=== PATIENT | male | born 1950 | race Caucasian/White ===

== ENCOUNTER → 2016-11-27 | Outpatient (CLI) | payer BC, OTHER ==
[~2016-11-27] MED LIST: ASCO-262 PO; CHOL500049 PO; HYDR-3812 PO; LEVO25TA2 PO; MULT1TAB69 PO; ONDA4TAB8 SL; TESTOSTERONE TOP; VIT1CAPS9 PO
[2016-11-27 07:22] LABS: BLOOD UREA NITROGEN 16 MG/DL (7-18); BUN/CREATININE RATIO 22; CREATININE SERUM 0.74 MG/DL (0.60-1.30); GFR ESTIMATED > 60
[2016-11-27] MEDS: IOHEXOL 350 MG/ML 100 ML (OMNIPAQUE 350) VIAL IV ONE (08:00)
[2016-11-27] MEDS: BARIUM SUSPENSION 2.1% (VANILLA SILQ) 450 ML PO ONE (08:01)
[2016-11-27] MEDS: NS 100 ML (IVPB) BAG IV ONE (08:01)
[2016-11-27] MEDS: CATHETER FLUSH 10 ML SYR IV PRN (08:01)
--- NOTE | 2016-11-27 11:43 | Diagnostic Imaging Report ---
PROCEDURE: CT abdomen with contrast only. TECHNIQUE: Multiple contiguous axial images were obtained through the abdomen after the administration of intravenous contrast. INDICATION: Increased hernia. COMPARISON: No prior similar studies are available for comparison. FINDINGS: There is 1 cm subpleural lateral nodule in the left lung base. This is stable compared to CT chest of 05/22/2014 compatible with benign etiology. The liver, the spleen, the pancreas, and the adrenal glands appear unremarkable. Internal heterogeneity within the gallbladder may relate to sludge or noncalcified stones. There is question of mild gallbladder wall thickening. This can be better evaluated with ultrasound if needed. The kidneys demonstrate symmetric enhancement and contrast excretion. No hydronephrosis. There is a 4 mm nonobstructive stone in the lower pole of the left kidney. The abdominal aorta is normal in caliber. No paraaortic significantly enlarged lymph node is seen. There is a tiny umbilical fat-containing hernia. No fluid collection or free fluid in the abdomen is seen. The osseous structures demonstrate vertebral body hemangiomas up to 1.3 cm in L4 vertebral body. No destructive mass. IMPRESSION: 1. There is a tiny fat-containing umbilical hernia. 2. Suggestion of noncalcified gallbladder stones and minimal gallbladder wall thickening. Correlate clinically and with gallbladder ultrasound if needed. Dictated by: Dictated on workstation # [id number]
== END | disposition home or self-care (01) ==
LOC: RAD 06:49
PROVIDERS: ATTEND Surgery
DX: K43.2 Incisional hernia without obstruction or gangrene (principal); K42.9 Umbilical hernia without obstruction or gangrene
CPT/HCPCS: 36415; 74160; 82565; 84520

== ENCOUNTER 2016-11-30 09:41 | Outpatient (CLI) | payer BC ==
[~2016-11-30] VITALS: Ht 185.4 cm; Wt 107.6 kg
[~2016-11-30 09:41] MED LIST changes: -ASCO-262 PO; -CHOL500049 PO; -MULT1TAB69 PO; -VIT1CAPS9 PO
[2016-11-30] MEDS ORDERED: ASCO-262 PO (09:56)
[2016-11-30] MEDS ORDERED: VIT1CAPS9 PO (09:56)
[2016-11-30] MEDS ORDERED: MULT1TAB69 PO (09:56)
[2016-11-30] MEDS ORDERED: CHOL500049 PO (09:56)
[2016-11-30 09:57] VITALS: BP 109/73
[2016-11-30 10:28] LABS: BASOPHILS # (AUTO) 0.1 10^3/uL (0.0-0.1); BASOPHILS % (AUTO) 1 % (0-10); EOSINOPHILS # (AUTO) 0.2 10^3/uL (0.0-0.3); EOSINOPHILS % (AUTO) 2 % (0-10); LYMPHOCYTES # (AUTO) 1.6 X 10^3 (1.0-4.0); LYMPHOCYTES % (AUTO) 22 % (12-44); MEAN CORPUSCULAR HEMOGLOBIN 31 PG (25-34); MEAN CORPUSCULAR HGB CONC 33 G/DL (32-36); MEAN CORPUSCULAR VOLUME 92 FL (80-99); MEAN PLATELET VOLUME 10.7 FL (7.4-10.4); MONOCYTES # (AUTO) 0.7 X 10^3 (0.0-1.0); MONOCYTES % (AUTO) 9 % (0-12); NEUTROPHILS % (AUTO) 67 % (42-75); PLATELET COUNT 275 10^3/uL (130-400); RED BLOOD COUNT 4.92 10^6/uL (4.35-5.85); RED CELL DISTRIBUTION WIDTH 12.4 % (10.0-14.5); WHITE BLOOD COUNT 7.5 10^3/uL (4.3-11.0)
[2016-11-30 10:44] LABS: ALANINE AMINOTRANSFERASE 33 U/L (0-55); ANION GAP 7 MMOL/L (5-14); ASPARTATE AMINO TRANSFERASE 18 U/L (5-34); BILIRUBIN,TOTAL 0.8 MG/DL (0.1-1.0); BLOOD UREA NITROGEN 11 MG/DL (7-18); BUN/CREATININE RATIO 13; CALCIUM 9.2 MG/DL (8.5-10.1); CARBON DIOXIDE 26 MMOL/L (21-32); CHLORIDE 106 MMOL/L (98-107); CREATININE SERUM 0.83 MG/DL (0.60-1.30); GFR ESTIMATED > 60; GLUCOSE 101 MG/DL (70-105); POTASSIUM 4.2 MMOL/L (3.6-5.0); SODIUM 139 MMOL/L (135-145); TOTAL PROTEIN 6.3 G/DL (6.4-8.2)
== END 2016-11-30 10:07 | disposition home or self-care (01) ==
LOC: PREOP 09:41
PROVIDERS: ATTEND Surgery
DX: Z01.812 Encounter for preprocedural laboratory examination (principal); Z11.2 Encounter for screening for other bacterial diseases; K80.20 Calculus of gallbladder without cholecystitis without obstruction; K43.0 Incisional hernia with obstruction, without gangrene
CPT/HCPCS: 36415; 80053; 85025; 87081

== ENCOUNTER 2016-12-03 10:13 | Day surgery (SDC) | payer MEDICARE, BC ==
[~2016-12-03] VITALS: Ht 185.4 cm; Wt 107.6 kg
[~2016-12-03 10:13] MED LIST changes: +ASCO-262 PO; +CHOL500049 PO; +MULT1TAB69 PO; +VIT1CAPS9 PO; +ceFAZolin 2 GM/50 ML NS 50 ML ONE; +metroNIDAZOLE 500MG/100ML IVPB 100 ML ONE
[2016-12-03] MEDS: LACTATED RINGERS 1,000 ML IV PRN ×2 (10:30→13:04)
[2016-12-03] MEDS ORDERED: ONDANSETRON 4 MG/2 ML (SDV) Z0FRAN ONE ×2 (10:31→11:12)
[2016-12-03] MEDS ORDERED: FAMOTIDINE 20MG/2ML IV (PEPCID) ONE (10:32)
[2016-12-03] MEDS ORDERED: ACETAMINOPHEN 500 MG TAB (TYLENOL) PO ONE (10:45)
[2016-12-03] MEDS ORDERED: oxyCODONE ER 10 MG (OxyCONTIN CR) TAB PO ONE (10:45)
[2016-12-03] MEDS ORDERED: PREGABALIN 75 MG (LYRICA) CAP PO ONE (10:45)
[2016-12-03] MEDS ORDERED: ONDANSETRON 4 MG/2 ML (SDV) Z0FRAN IV ONE (10:45)
[2016-12-03] MEDS ORDERED: CELECOXIB 100 MG (CeleBREX) CAP PO ONE (10:45)
[2016-12-03] MEDS ORDERED: FAMOTIDINE 20MG/2ML IV (PEPCID) IV ONE (10:45)
[2016-12-03] MEDS ORDERED: morphine INJ 10 MG/ML 1ML (SYR OR VIAL) IV PRN (10:45)
[2016-12-03 11:00] VITALS: BP 119/72
[2016-12-03] MEDS ORDERED: proPOfol 200 MG/20 ML (DIPRIVAN) VIAL IV ONE (11:12)
[2016-12-03] MEDS ORDERED: LIDOCAINE PF 2% 5 ML (XYLOCAINE) VIAL ONE (11:12)
[2016-12-03] MEDS ORDERED: LIDOCAINE JELLY 2% (XYLOCAINE) 5 ML TUBE ONE (11:12)
[2016-12-03] MEDS ORDERED: LACTATED RINGERS 1,000 ML IV ONE ×2 (11:12→13:20)
[2016-12-03] MEDS ORDERED: ROCURONIUM 50 MG/5 ML (ZEMURON) VIAL IV ONE ×2 (11:12→13:28)
[2016-12-03] MEDS ORDERED: MIDAZOLAM 2 MG/2 ML (VERSED) VIAL ONE (11:12)
[2016-12-03] MEDS ORDERED: BUP/EPI 0.25% 1:200,000 (MARCAINE) 10 ML VIAL IJ ONE (11:17)
[2016-12-03] MEDS ORDERED: LIDOCAINE PF 0.5% 50 ML (XYLOCAINE) VIAL ONE (11:17)
[2016-12-03] MEDS ORDERED: KETAMINE HCL 100 MG/ML 5 ML VIAL ONE (11:18)
--- NOTE | 2016-12-03 12:25 | Progress Note-Pre Operative ---
Pre-Operative Progress Note H&P Reviewed The H&P was reviewed, patient examined and no changes noted. Date Seen by Provider: Dec 03, 2016 Time Seen by Provider: 12:25 Date H&P Reviewed: Dec 03, 2016 Time H&P Reviewed: 12:25 Pre-Operative Diagnosis: gALLSTONES WITH RECURRENT VENTRAL HERNIA MITESH KENNEDY MD Dec 03, 2016 12:25 pm
[2016-12-03] MEDS ORDERED: metroNIDAZOLE 500MG/100ML IVPB 100 ML IV ONE (14:15)
[2016-12-03] MEDS ORDERED: SEVOFLURANE (ULTANE) 15 ML INHAL SOLN ONE (14:15)
[2016-12-03] MEDS ORDERED: ceFAZolin 2 GM/NS 50 ML IV ONE (14:15)
--- NOTE | 2016-12-03 14:16 | Progress Note-Post Operative ---
Post-Operative Progess Note Surgeon (s)/Briar Cutter (s) Surgeon MITESH KENNEDY MD Briar Cutter: not applicable Pre-Operative Diagnosis gALLSTONES WITH RECURRENT VENTRAL HERNIA Post-Operative Diagnosis same Procedure & Operative Findings Date of Procedure 12/03/16 Procedure Performed/Findings robotic-assisted cholecystectomy. Primary repair of recurrent ventral hernia without mesh Anesthesia Type Gen. Estimated Blood Loss Estimated blood loss (mL): minimal Specimens/Packing Specimens Removed gallbladder MITESH KENNEDY MD Dec 03, 2016 2:16 pm
[2016-12-03] MEDS ORDERED: HYDR-3812 PO (14:17)
--- NOTE | 2016-12-03 14:17 | Discharge Inst-Simple/Standard ---
Discharge Inst-Standard Discharge Medications New, Converted or Re-Newed RX: RX on Chart Patient Instructions/Follow Up Plan of Care/Instructions/FU: dressings off in 48 hours. Incentive spirometry. Follow-up in 3 weeks. Activity as Tolerated: No Goal: no lifting or pushing over 10 pounds Discharge Diet: No Restrictions MITESH KENNEDY MD Dec 03, 2016 2:17 pm
[2016-12-03] MEDS ORDERED: ONDANSETRON 4 MG/2 ML (SDV) Z0FRAN IVP PRN (14:30)
[2016-12-03] MEDS: morphine INJ 10 MG/ML 1ML (SYR OR VIAL) IVP PRN ×2 (14:52→15:00)
[2016-12-03 15:30] VITALS: BP 109/60
[2016-12-03] MEDS ORDERED: HYDROcodone/APAP 5 MG/325 MG (LORTAB) TAB ONE (15:35)
[2016-12-03 16:00] VITALS: BP 110/63
[2016-12-03] MEDS ORDERED: HYDROcodone/APAP 5 MG/325 MG (LORTAB) TAB PO ONE (16:00)
[2016-12-03 16:30] VITALS: BP 112/66
[2016-12-03 16:40] VITALS: BP 112/66
--- NOTE | 2016-12-03 19:08 | OPERATIVE REPORT ---
DATE OF SERVICE: 12/03/2016 PREOPERATIVE DIAGNOSES: 1. Gallstones. 2. Recurrent ventral hernia. POSTOPERATIVE DIAGNOSIS: 1. Gallstones. 2. Recurrent ventral hernia. OPERATIONS: 1. Robotic assisted cholecystectomy. 2. Repair of ventral hernia without mesh. SURGEON: Mitesh Kennedy MD ANESTHESIA: General anesthesia. BLOOD LOSS: Minimal. FLUIDS: 1200 mL of crystalloid. TYPE OF WOUND: Type 2 (clean - contaminated wound). INDICATION FOR PROCEDURE: This gentleman presented with symptomatic gallstones. During the preoperative evaluation, a recurrent ventral hernia possibly containing extraperitoneal fat was discovered, to the right of the umbilicus. He was offered robotic-assisted cholecystectomy with concomitant repair of the ventral hernia. The possibility of using a biologic mesh was also discussed with him. Informed consent was obtained after reviewing the operative details and complications of wound infection, bile leak and further recurrence of the hernia. DESCRIPTION OF PROCEDURE: He was placed supine on the operating table and general anesthesia induced using an endotracheal tube. Two grams of Ancef and 500 mg of Flagyl were administered intravenously as prophylaxis against wound infection. Sequential compression devices were placed around his legs to minimize the risk of venous thrombosis. Abdomen was prepared and draped in the usual sterile manner. Pneumoperitoneum was established using a Veress needle introduced over the lateral right subcostal margin. Intraabdominal pressure was maintained at 15 mmHg using carbon dioxide insufflation. A 12 mm trocar was placed and anatomy visualized using the three-dimensional, high definition laparoscope associated with da Tamiko system. The hernia itself measured less than 1 cm in diameter containing extraperitoneal fat. We elected to repair the defect primarily, avoiding mesh placement for the hernia. Under direct view, I placed an 8 mm cannula over the left side of the abdomen and using a grasper, took down the omentum. Subsequently, a 12 mm trocar was placed through the hernia defect itself to facilitate placing the robotic camera. In addition, an 8 cannula was placed over the right side of the abdomen. The patient was then turned into reverse Trendelenburg position with the right side tilted up. The robotic system was then docked in place. Omentum was wrapped around the gallbladder. It was displaced out of the way, revealing an elongated gallbladder with evidence of chronic cholecystitis. The fundus was retracted cephalad and the infundibulum grasped with Cadiere forceps. Thickened tissue around Calot's triangle was incised using hook cautery, delineating the cystic duct and artery. Both were divided between locking clips. Cholecystectomy was then completed using the hook cautery. Subhepatic space was then irrigated with saline and the gallbladder placed in an EndoCatch bag. At the end of the operation, the fascia to the right of umbilicus has to be extended cephalad, to facilitate retrieving of the gallbladder within the EndoCatch bag. Subsequently, the fascia was closed using interrupted #1 Vicryl, technically constituting primary repair of the ventral hernia. The subcutaneous tissue and skin were approximated using 4-0 Vicryl. Marcaine 0.25% with epinephrine was infiltrated along the incisions, both preemptively and at the conclusion of the operation. He tolerated the procedure well, was extubated in the operating room and taken to the recovery room in stable condition. [place], sponges and instruments were correct at the end of the operation. Job ID: [id number] DocumentID: [id number] Dictated Date: 12/03/2016 14:12:21 Hotel Front Desk Clerk Date: 12/03/2016 19:07:20 Dictated By: MITESH KENNEDY MD [facility]
[2016-12-04] MEDS ORDERED: KETOROLAC 30 MG/ML VIAL IV SCH (09:00)
--- OUTSIDE RECORDS SUMMARY | 2016-12-08 21:04 | XMS REPORT | Continuity of Care Document ---
Author Author [facility] Organization [facility] Address Unknown Phone Unavailable Allergies Active Description Code Type Severity Reaction Onset Reported/Identified Relationship to Patient Clinical Status Yes No Known Drug Allergies [id number] Drug Allergy Mild N/A 05/03/2015 Medications Problems Date Dx Coded Attending Type Code Diagnosis Diagnosed By 09/09/2011 Ot 327.23 OBSTRUCTIVE SLEEP APNEA (ADULT) (PEDIATR 11/04/2011 Ot 327.23 OBSTRUCTIVE SLEEP APNEA (ADULT) (PEDIATR 05/03/2012 Ot 562.10 DIVERTICULOSIS COLON (W/O MENT OF HEMORR 05/03/2012 Ot V12.72 PERSONAL HISTORY OF COLONIC POLYPS 05/03/2012 Ot V16.0 FAMILY HX-GI MALIGNANCY 05/03/2012 Ot V67.09 SURGERY FOLLOW-UP, OTHER SURGERY 08/09/2013 IGOR SOLIZ DO Ot 305.1 TOBACCO USE DISORDER 08/09/2013 IGOR SOLIZ DO Ot 414.01 CORONARY ATHEROSCLEROSIS OF [place] CORON 08/09/2013 IGOR SOLIZ DO Ot 723.1 CERVICALGIA 08/09/2013 IGRO SOLIZ DO Ot 786.59 CHEST PAIN NEC 08/09/2013 IGOR SOLIZ DO Ot V17.3 FAM HX-ISCHEM HEART DIS 05/22/2014 Ot 211.3 05/22/2014 Ot 562.10 05/22/2014 Ot V16.0 05/22/2014 Ot V67.09 05/22/2014 Ot V72.84 05/22/2014 MARCIA NAVAS, MITESH Witt Ot 172.3 05/22/2014 MARCIA NAVAS, MITESH Witt Ot 216.5 05/22/2014 MARCIA NAVAS, MITESH Witt Ot V72.81 05/22/2014 MARCIA NAVAS, MITESH Witt Ot V74.8 05/22/2014 MARCIA NAVAS, MITESH Witt Ot 172.3 05/22/2014 MARCIA NAVAS, MIETSH Witt Ot 216.5 05/22/2014 KHOA SOLIZ Ot 240.9 05/22/2014 MARCIA NAVAS, MITESH Witt Ot 241.0 05/22/2014 MITZI NAVAS, BERTIN Alfred Ot 240.9 05/22/2014 MITZI NAVAS, BERTIN Alfred Ot 786.6 05/22/2014 IGOR SOLIZ DO Ot 172.9 05/22/2014 IGOR SOLIZ DO Ot 793.19 05/22/2014 Ot 211.3 05/22/2014 Ot 562.10 05/22/2014 Ot V16.0 05/22/2014 Ot V67.09 05/22/2014 Ot V72.84 05/22/2014 MARCIA NAVAS, MITESH Witt Ot 172.3 05/22/2014 MARCIA NAVAS, MITESH M Ot 216.5 05/22/2014 MARCIA NAVAS, MITESH M Ot V72.81 05/22/2014 MARCIA NAVAS, MITESH M Ot V74.8 05/22/2014 MARCIA NAVAS, MITESH Witt Ot 172.3 05/22/2014 MARCIA NAVAS, MITESH Witt Ot 216.5 05/22/2014 KHOA SOLIZ Ot 240.9 05/22/2014 MARCIA NAVAS, MITESH Witt Ot 241.0 05/22/2014 BERTIN CARTAGENA MD Ot 240.9 05/22/2014 MITZI NAVAS, BERTIN Alfred Ot 786.6 05/22/2014 IGOR SOLIZ DO Ot 172.9 05/22/2014 IGOR SOLIZ DO Ot 793.19 06/11/2014 IGOR SOLIZ DO Ot 793.11 05/03/2015 WOLF GOMEZ MD Ot D12.0 BENIGN NEOPLASM OF CECUM 05/03/2015 WOLF GOMEZ MD Ot K57.90 DVRTCLOS OF INTEST, PART UNSP, W/O PERF 05/03/2015 WOLF GOMEZ MD Ot N40.0 ENLARGED PROSTATE WITHOUT LOWER URINARY 05/03/2015 WOLF GOMEZ MD Ot Z12.11 ENCOUNTER FOR SCREENING FOR MALIGNANT NE 05/03/2015 WOLF GOMEZ MD Ot Z80.0 FAMILY HISTORY OF MALIGNANT NEOPLASM OF 04/13/2016 Ot 211.3 BENIGN NEOPLASM LG BOWEL 04/13/2016 Ot 562.10 DIVERTICULOSIS COLON (W/O MENT OF HEMORR 04/13/2016 Ot V16.0 FAMILY HX-GI MALIGNANCY 04/13/2016 Ot V67.09 SURGERY FOLLOW-UP, OTHER SURGERY 04/13/2016 Ot V72.84 EXAM PRE-OPERATIVE NOS 04/13/2016 MARCIA NAVAS, MITESH Witt Ot 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 04/13/2016 MARCIA NAVAS, MITESH Witt Ot 216.5 BENIGN SHELLY SKIN TRUNK 04/13/2016 MARCIA NAVAS, MITESH Witt Ot V72.81 BRGA-SFL-LWOOMYZGC CARDIOVASCULAR 04/13/2016 MARCIA NAVAS, MITESH Witt Ot V74.8 SCREEN-BACTERIAL DIS NEC 04/13/2016 MARCIA NAVAS, MITESH Witt Ot 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 04/13/2016 MARCIA NAVAS, MITESH Witt Ot 216.5 BENIGN SHELLY SKIN TRUNK 04/13/2016 KHOA SOLIZ [employer]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 Ot 240.9 GOITER NOS 04/13/2016 MARCIA NAVAS, MITESH Witt Ot 241.0 NONTOX UNINODULAR GOITER 04/13/2016 BERTIN CARTAGENA MD Ot 240.9 GOITER NOS 04/13/2016 BERTIN CARTAGENA MD Ot 786.6 CHEST SWELLING/MASS/LUMP 04/13/2016 IGOR SOLIZ DO Ot 172.9 MALIG MELANOMA SKIN NOS 04/13/2016 IGOR SOLIZ DO Ot 793.19 OTHER NONSPECIFIC ABNORMAL FINDING OF PEDRO 04/13/2016 IGOR SOLIZ DO Ot 793.11 SOLITARY PULMONARY NODULE 04/13/2016 PATRICIA NAVAS, WOLF Magana Ot Z01.818 ENCOUNTER FOR OTHER PREPROCEDURAL EXAMIN 04/13/2016 PATRICIA NAVAS, WOLF Magana Ot Z12.11 ENCOUNTER FOR SCREENING FOR MALIGNANT NE 04/13/2016 JEANNINE NAVAS, NICOLE Caballero Ot I25.10 ATHSCL HEART DISEASE OF [place] CORONARY 04/13/2016 JEANNINE NAVAS, NICLOE Caballero Ot K80.20 CALCULUS OF GALLBLADDER W/O CHOLECYSTITI 04/13/2016 JEANNINE NAVAS, NICOLE Caballero Ot R10.11 RIGHT UPPER QUADRANT PAIN 04/13/2016 JEANNINE NAVAS, NICOLE Caballero Ot R11.0 NAUSEA 04/13/2016 NICOLE PAEZ MD Ot R16.0 HEPATOMEGALY, NOT ELSEWHERE CLASSIFIED 04/15/2016 NICOLE PAEZ MD Ot I25.10 ATHSCL HEART DISEASE OF [place] CORONARY 04/15/2016 NICOLE PAEZ MD Ot K80.20 CALCULUS OF GALLBLADDER W/O CHOLECYSTITI 04/15/2016 NICOLE PAEZ MD Ot R10.11 RIGHT UPPER QUADRANT PAIN 04/15/2016 NICOLE PAEZ MD Ot R11.0 NAUSEA 04/15/2016 NICOLE PAEZ MD Ot R16.0 HEPATOMEGALY, NOT ELSEWHERE CLASSIFIED 04/17/2016 NICOLE PAEZ MD Ot I25.10 ATHSCL HEART DISEASE OF [place] CORONARY 04/17/2016 NICOLE PAEZ MD Ot K80.20 CALCULUS OF GALLBLADDER W/O CHOLECYSTITI 04/17/2016 NICOLE PAEZ MD Ot R10.11 RIGHT UPPER QUADRANT PAIN 04/17/2016 NICOLE PAEZ MD Ot R11.0 NAUSEA 04/17/2016 NICOLE PAEZ MD Ot R16.0 HEPATOMEGALY, NOT ELSEWHERE CLASSIFIED 11/29/2016 MITESH KENNEDY MD Ot K42.9 UMBILICAL HERNIA WITHOUT OBSTRUCTION OR 11/29/2016 MITESH KENNEDY MD Ot K43.2 INCISIONAL HERNIA WITHOUT OBSTRUCTION OR Procedures Code Description Performed By Performed On 37.22 08/09/2013 88.53 08/09/2013 88.56 08/09/2013 Results Test Result Range Complete blood count (CBC) with automated white blood cell (WBC) differential - 04/13/16 02:26 Blood leukocytes automated count (number/volume) 10.4 10*3/ uL 4.3-11.0 Blood erythrocytes automated count (number/volume) 4.89 10*6 /uL 4.35-5.85 Venous blood hemoglobin measurement (mass/volume) 15.4 g/dL 13.3-17.7 Blood hematocrit (volume fraction) 46 % 40-54 Automated erythrocyte mean corpuscular volume 94 [foz_us] 80-99 Automated erythrocyte mean corpuscular hemoglobin (mass per erythrocyte) 32 pg 25-34 Automated erythrocyte mean corpuscular hemoglobin concentration measurement ( mass/volume) 34 g/dL 32-36 Automated erythrocyte distribution width ratio 12.6 % 10.0-14.5 Automated blood platelet count (count/volume) 301 10*3/uL 130-400 Automated blood platelet mean volume measurement 10.5 [foz_ us] 7.4-10.4 Automated blood neutrophils/100 leukocytes 73 % 42-75 Automated blood lymphocytes/100 leukocytes 17 % 12-44 Blood monocytes/100 leukocytes 8 % 0-12 Automated blood eosinophils/100 leukocytes 2 % 0-10 Automated blood basophils/100 leukocytes 1 % 0-10 Blood neutrophils automated count (number/volume) 7.6 10*3 1.8-7.8 Blood lymphocytes automated count (number/volume) 1.7 10*3 1.0-4.0 Blood monocytes automated count (number/volume) 0.9 10*3 0.0-1.0 Automated eosinophil count 0.2 10*3/uL 0.0-0.3 Automated blood basophil count (count/volume) 0.1 10*3/uL 0.0-0.1 Comprehensive metabolic panel - 04/13/16 02:26 Serum or plasma sodium measurement (moles/volume) 139 mmol/ L 135-145 Serum or plasma potassium measurement (moles/volume) 4.7 mmol/L 3.6-5.0 Serum or plasma chloride measurement (moles/volume) 105 mmol /L 98-107 Carbon dioxide 26 mmol/L 21-32 Serum or plasma anion gap determination (moles/volume) 8 mmol/L 5-14 Serum or plasma urea nitrogen measurement (mass/volume) 16 mg/dL 7-18 Serum or plasma creatinine measurement (mass/volume) 0.81 mg /dL 0.60-1.30 Serum or plasma urea nitrogen/creatinine mass ratio 20 NRG Serum or plasma creatinine measurement with calculation of estimated glomerular filtration rate > NRG Serum or plasma glucose measurement (mass/volume) 129 mg/dL 70-105 Serum or plasma calcium measurement (mass/volume) 9.3 mg/dL 8.5-10.1 Serum or plasma total bilirubin measurement (mass/volume) 0.3 mg/dL 0.1-1.0 Serum or plasma alkaline phosphatase measurement (enzymatic activity/volume) 103 U/L 40-136 Serum or plasma aspartate aminotransferase measurement (enzymatic activity/ volume) 17 U/L 5-34 Serum or plasma alanine aminotransferase measurement (enzymatic activity/volume ) 30 U/L 0-55 Serum or plasma protein measurement (mass/volume) 6.3 g/dL 6.4-8.2 Serum or plasma albumin measurement (mass/volume) 4.2 g/dL 3.2-4.5 Lipase - 04/13/16 02:26 Lipase 18 U/L 8-78 Complete urinalysis with reflex to culture - 04/13/16 03:20 Urine color determination YELLOW NRG Urine clarity determination CLEAR NRG Urine pH measurement by test strip 5 5- 9 Specific gravity of urine by test strip 1.025 1.016-1.022 Urine protein assay by test strip, semi-quantitative NEGATIVE NEGATIVE Urine glucose detection by automated test strip NEGATIVE NEGATIVE Erythrocytes detection in urine sediment by light microscopy 1+ NEGATIVE Urine ketones detection by automated test strip NEGATIVE NEGATIVE Urine nitrite detection by test strip NEGATIVE NEGATIVE Urine total bilirubin detection by test strip NEGATIVE NEGATIVE Urine urobilinogen measurement by automated test strip (mass/volume) NORMAL NORMAL Urine leukocyte esterase detection by dipstick NEGATIVE NEGATIVE Automated urine sediment erythrocyte count by microscopy (number/high power field) [HPF] NRG Automated urine sediment leukocyte count by microscopy (number/high power field ) NONE NRG Bacteria detection in urine sediment by light microscopy NEGATIVE NRG Squamous epithelial cells detection in urine sediment by light microscopy 2-5 NRG Crystals detection in urine sediment by light microscopy PRESENT NRG Casts detection in urine sediment by light microscopy NONE NRG Mucus detection in urine sediment by light microscopy NEGATIVE NRG Complete urinalysis with reflex to culture NO NRG Calcium oxalate crystals detection in urine sediment by light microscopy LARGE NRG Complete blood count (CBC) with automated white blood cell (WBC) differential - 11/30/16 10:02 Blood leukocytes automated count (number/volume) 7.5 10*3/ uL 4.3-11.0 Blood erythrocytes automated count (number/volume) 4.92 10*6 /uL 4.35-5.85 Venous blood hemoglobin measurement (mass/volume) 15.0 g/dL 13.3-17.7 Blood hematocrit (volume fraction) 45 % 40-54 Automated erythrocyte mean corpuscular volume 92 [foz_us] 80-99 Automated erythrocyte mean corpuscular hemoglobin (mass per erythrocyte) 31 pg 25-34 Automated erythrocyte mean corpuscular hemoglobin concentration measurement ( mass/volume) 33 g/dL 32-36 Automated erythrocyte distribution width ratio 12.4 % 10.0-14.5 Automated blood platelet count (count/volume) 275 10*3/uL 130-400 Automated blood platelet mean volume measurement 10.7 [foz_ us] 7.4-10.4 Automated blood neutrophils/100 leukocytes 67 % 42-75 Automated blood lymphocytes/100 leukocytes 22 % 12-44 Blood monocytes/100 leukocytes 9 % 0-12 Automated blood eosinophils/100 leukocytes 2 % 0-10 Automated blood basophils/100 leukocytes 1 % 0-10 Blood neutrophils automated count (number/volume) 5.0 10*3 1.8-7.8 Blood lymphocytes automated count (number/volume) 1.6 10*3 1.0-4.0 Blood monocytes automated count (number/volume) 0.7 10*3 0.0-1.0 Automated eosinophil count 0.2 10*3/uL 0.0-0.3 Automated blood basophil count (count/volume) 0.1 10*3/uL 0.0-0.1 Comprehensive metabolic panel - 11/30/16 10:02 Serum or plasma sodium measurement (moles/volume) 139 mmol/ L 135-145 Serum or plasma potassium measurement (moles/volume) 4.2 mmol/L 3.6-5.0 Serum or plasma chloride measurement (moles/volume) 106 mmol /L 98-107 Carbon dioxide 26 mmol/L 21-32 Serum or plasma anion gap determination (moles/volume) 7 mmol/L 5-14 Serum or plasma urea nitrogen measurement (mass/volume) 11 mg/dL 7-18 Serum or plasma creatinine measurement (mass/volume) 0.83 mg /dL 0.60-1.30 Serum or plasma urea nitrogen/creatinine mass ratio 13 NRG Serum or plasma creatinine measurement with calculation of estimated glomerular filtration rate > NRG Serum or plasma glucose measurement (mass/volume) 101 mg/dL 70-105 Serum or plasma calcium measurement (mass/volume) 9.2 mg/dL 8.5-10.1 Serum or plasma total bilirubin measurement (mass/volume) 0.8 mg/dL 0.1-1.0 Serum or plasma alkaline phosphatase measurement (enzymatic activity/volume) 90 U/L 40-136 Serum or plasma aspartate aminotransferase measurement (enzymatic activity/ volume) 18 U/L 5-34 Serum or plasma alanine aminotransferase measurement (enzymatic activity/volume ) 33 U/L 0-55 Serum or plasma protein measurement (mass/volume) 6.3 g/dL 6.4-8.2 Serum or plasma albumin measurement (mass/volume) 4.0 g/dL 3.2-4.5 Methicillin resistant Staphylococcus aureus (MRSA) screening culture - 10:02 Methicillin resistant Staphylococcus aureus (MRSA) screening culture NEG NRG Encounters ACCT No. Visit Date/Time Discharge Status Pt. Type Provider Facility Loc./Unit Complaint [id number] 04/26/2014 15:14:34 04/26/2014 23: 59:59 CLS Outpatient Elizabeth Pimentel
== END 2016-12-03 16:45 | disposition home or self-care (01) ==
LOC: SDC 10:13
PROVIDERS: ATTEND Surgery
DX: K80.10 Calculus of gallbladder with chronic cholecystitis without obstruction (principal); K43.0 Incisional hernia with obstruction, without gangrene; I25.10 Atherosclerotic heart disease of native coronary artery without angina pectoris; G47.33 Obstructive sleep apnea (adult) (pediatric); F17.220 Nicotine dependence, chewing tobacco, uncomplicated
CPT/HCPCS: 94664

== ENCOUNTER 2017-10-20 06:53 | Day surgery (SDC) | payer MEDICARE ==
[~2017-10-20] VITALS: Ht 185.4 cm; Wt 107.6 kg
[2017-10-20] VITALS (11 sets, daily range): BP systolic 91–123; BP diastolic 54–74
[~2017-10-20 06:53] MED LIST changes: +ACHD5005 PO; -HYDR-3812 PO; -ceFAZolin 2 GM/50 ML NS 50 ML ONE; -metroNIDAZOLE 500MG/100ML IVPB 100 ML ONE
[2017-10-20] MEDS ORDERED: NS IV 1000 ML 3,000 ML ONE (06:57)
--- OUTSIDE RECORDS SUMMARY | 2017-10-20 06:57 | XMS REPORT | Continuity of Care Document ---
Author Author [facility] Organization [facility] Address Unknown Phone Unavailable Allergies Active Description Code Type Severity Reaction Onset Reported/Identified Relationship to Patient Clinical Status Yes No Known Drug Allergies [id number] Drug Allergy Mild N/A 05/03/2015 Medications There is no data. 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 04/13/2016 MARCIA NAVAS, MITESH Witt Ot 216.5 BENIGN SHELLY SKIN TRUNK 04/13/2016 MARCIA NAVAS, MITESH Witt Ot V72.81 [id number] CARDIOVASCULAR 04/13/2016 MARCIA NAVAS, MITESH Witt Ot V74.8 SCREEN-BACTERIAL DIS NEC 04/13/2016 MARCIA NAVAS, MITESH Witt Ot 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 04/13/2016 MARCIA NAVAS, MITESH Witt Ot 216.5 BENIGN SHELLY SKIN TRUNK 04/13/2016 KHOA SOLIZ ADVISOR CONSULTANT Ot 240.9 GOITER NOS 04/13/2016 MARCIA NAVAS, MITESH Witt Ot 241.0 NONTOX UNINODULAR GOITER 04/13/2016 MITZI NAVAS, BERTIN Alfred Ot 240.9 GOITER NOS 04/13/2016 MITZI NAVAS, BERTIN Alfred Ot 786.6 CHEST SWELLING/MASS/LUMP 04/13/2016 IGOR SOLIZ [...] Caballero Ot I25.10 ATHSCL HEART DISEASE OF [place] CORONARY 04/13/2016 JEANNINE NAVAS, NICOLE Caballero Ot K80.20 CALCULUS OF GALLBLADDER W/O CHOLECYSTITI 04/13/2016 NICOLE PAEZ MD Ot R10.11 RIGHT UPPER QUADRANT PAIN 04/13/2016 NICOLE PAEZ MD Ot R11.0 NAUSEA 04/13/2016 NICOLE PAEZ MD Ot R16.0 HEPATOMEGALY, NOT ELSEWHERE CLASSIFIED 04/15/2016 NICOLE PAEZ MD Ot I25.10 ATHSCL HEART DISEASE OF [place] CORONARY 04/15/2016 NICOLE PAEZ MD Ot K80.20 CALCULUS OF GALLBLADDER W/O CHOLECYSTITI 04/15/2016 NICOLE PAEZ MD Ot R10.11 RIGHT UPPER QUADRANT PAIN 04/15/2016 JEANNINE NAVAS, NICOLE T Ot R11.0 NAUSEA 04/15/2016 NICOLE PAEZ MD Ot R16.0 HEPATOMEGALY, NOT ELSEWHERE CLASSIFIED 04/17/2016 NICOLE PAEZ MD Ot I25.10 ATHSCL HEART DISEASE OF [place] CORONARY 04/17/2016 NICOLE PAEZ MD Ot K80.20 CALCULUS OF GALLBLADDER W/O CHOLECYSTITI 04/17/2016 NICOLE PAEZ MD Ot R10.11 RIGHT UPPER QUADRANT PAIN 04/17/2016 NICOLE PAEZ MD Ot R11.0 NAUSEA 04/17/2016 NICOLE PAEZ MD Ot R16.0 HEPATOMEGALY, NOT ELSEWHERE CLASSIFIED 11/29/2016 MITESH KENNEDY MD Ot K42.9 UMBILICAL HERNIA WITHOUT OBSTRUCTION OR 11/29/2016 MITESH KENNEDY MD Ot K43.2 INCISIONAL HERNIA WITHOUT OBSTRUCTION OR 11/30/2016 MITESH KENNEDY MD Ot K43.0 INCISIONAL HERNIA WITH OBSTRUCTION, WITH 11/30/2016 MITESH KENNEDY MD Ot K80.20 CALCULUS OF GALLBLADDER W/O CHOLECYSTITI 11/30/2016 MITESH KENNEDY MD Ot Z01.812 ENCOUNTER FOR PREPROCEDURAL LABORATORY E 11/30/2016 MITESH KENNEDY MD Ot Z11.2 ENCOUNTER FOR SCREENING FOR OTHER BACTER 12/03/2016 MITESH KENNEDY MD Ot F17.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 DEPENDENCE, CHEWING TOBACCO, UN 12/03/2016 MITESH KENNEDY MD Ot G47.33 OBSTRUCTIVE SLEEP APNEA (ADULT) (PEDIATR 12/03/2016 MITESH KENNEDY MD Ot I25.10 ATHSCL HEART DISEASE OF [place] CORONARY 12/03/2016 MITESH KENNEDY MD Ot K43.0 INCISIONAL HERNIA WITH OBSTRUCTION, WITH 12/03/2016 MITESH KENNEDY MD Ot K80.10 CALCULUS OF GALLBLADDER W CHRONIC CHOLEC 12/08/2016 MARCIA NAVAS, MITESH Witt Ot F17.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 DEPENDENCE, CHEWING TOBACCO, UN 12/08/2016 MITESH KENNEDY MD Ot G47.33 OBSTRUCTIVE SLEEP APNEA (ADULT) (PEDIATR 12/08/2016 MARCIA NAVAS, MITESH Witt Ot I25.10 ATHSCL HEART DISEASE OF [place] CORONARY 12/08/2016 MITESH KENNEDY MD Ot K43.0 INCISIONAL HERNIA WITH OBSTRUCTION, WITH 12/08/2016 MARCIA NAVAS, MITESH Witt Ot K80.10 CALCULUS OF GALLBLADDER W CHRONIC CHOLEC 12/09/2016 MARCIA NAVAS, MITESH Witt Ot K42.9 UMBILICAL HERNIA WITHOUT OBSTRUCTION OR 12/09/2016 MITESH KENNEDY MD Ot K43.2 INCISIONAL HERNIA WITHOUT OBSTRUCTION OR 12/09/2016 MITESH KENNEDY MD Ot K42.9 UMBILICAL HERNIA WITHOUT OBSTRUCTION OR 12/09/2016 MITESH KENNEDY MD Ot K43.2 INCISIONAL HERNIA WITHOUT OBSTRUCTION OR 12/10/2016 MITESH KENNEDY MD Ot F17.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 DEPENDENCE, CHEWING TOBACCO, UN 12/10/2016 MITESH KENNEDY MD Ot G47.33 OBSTRUCTIVE SLEEP APNEA (ADULT) (PEDIATR 12/10/2016 MITESH KENNEDY MD Ot I25.10 ATHSCL HEART DISEASE OF [place] CORONARY 12/10/2016 MARCIA NAVAS, MITESH Witt Ot K43.0 INCISIONAL HERNIA WITH OBSTRUCTION, WITH 12/10/2016 MITESH KNENEDY MD Ot K80.10 CALCULUS OF GALLBLADDER W CHRONIC CHOLEC 12/10/2016 MITESH KENNEDY MD Ot K42.9 UMBILICAL HERNIA WITHOUT OBSTRUCTION OR 12/10/2016 MITESH KENNEDY MD Ot K43.2 INCISIONAL HERNIA WITHOUT OBSTRUCTION OR 02/01/2017 MITESH KENNEDY MD Ot K42.9 UMBILICAL HERNIA WITHOUT OBSTRUCTION OR 02/01/2017 MITESH KENNEDY MD Ot K43.2 INCISIONAL HERNIA WITHOUT OBSTRUCTION OR 02/02/2017 MITESH KENNEDY MD Ot F17.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 DEPENDENCE, CHEWING TOBACCO, UN 02/02/2017 MITESH KENNEDY MD Ot G47.33 OBSTRUCTIVE SLEEP APNEA (ADULT) (PEDIATR 02/02/2017 MITESH KENNEDY MD Ot I25.10 ATHSCL HEART DISEASE OF [place] CORONARY 02/02/2017 MARCIA NAVAS, MITESH Witt Ot K43.0 INCISIONAL HERNIA WITH OBSTRUCTION, WITH 02/02/2017 MITESH KENNEDY MD Ot K80.10 CALCULUS OF GALLBLADDER W CHRONIC CHOLEC 02/02/2017 MITESH KENNEDY MD Ot K42.9 UMBILICAL HERNIA WITHOUT OBSTRUCTION OR 02/02/2017 MITESH KENNEDY MD Ot K43.2 INCISIONAL HERNIA WITHOUT OBSTRUCTION OR 02/02/2017 Ot V72.84 EXAM PRE- OPERATIVE NOS 02/02/2017 MITESH KENNEDY MD Ot 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9 MALIG MELANOMA SKIN NOS 02/02/2017 IGOR SOLIZ DO Ot 793.19 OTHER NONSPECIFIC ABNORMAL FINDING OF PEDRO 02/02/2017 IGOR SOLIZ DO Ot 793.11 SOLITARY PULMONARY NODULE 02/02/2017 WOLF GOMEZ MD Ot Z01.818 ENCOUNTER FOR OTHER PREPROCEDURAL EXAMIN 02/02/2017 WOLF GOMEZ MD Ot Z12.11 ENCOUNTER FOR SCREENING FOR MALIGNANT NE 02/17/2017 MITESH KENNEDY MD Ot K42.9 UMBILICAL HERNIA WITHOUT OBSTRUCTION OR 02/17/2017 MITESH KENNEDY MD Ot K43.2 INCISIONAL HERNIA WITHOUT OBSTRUCTION OR 03/01/2017 KENNEDY MD, MITESH M Ot K42.9 UMBILICAL HERNIA WITHOUT OBSTRUCTION OR 03/01/2017 MARCIA NAVAS, MITESH M Ot K43.2 INCISIONAL HERNIA WITHOUT OBSTRUCTION OR 09/30/2017 MARCIA NAVAS, MITESH Witt Ot K42.9 UMBILICAL HERNIA WITHOUT OBSTRUCTION OR 09/30/2017 MARCIA NAVAS, MITESH Witt Ot K43.2 INCISIONAL HERNIA WITHOUT OBSTRUCTION OR 10/01/2017 MARCIA NAVAS, MITESH Witt Ot K42.9 UMBILICAL HERNIA WITHOUT OBSTRUCTION OR 10/01/2017 MARCIA NAVAS, MITESH Wtit Ot K43.2 INCISIONAL HERNIA WITHOUT OBSTRUCTION OR 10/06/2017 MARCIA NAVAS, MITESH Witt Ot K42.9 UMBILICAL HERNIA WITHOUT OBSTRUCTION OR 10/06/2017 MARCIA NAVAS, MITESH Witt Ot K43.2 INCISIONAL HERNIA WITHOUT OBSTRUCTION OR 10/08/2017 MARCIA NAVAS, MITESH Witt Ot K42.9 UMBILICAL HERNIA WITHOUT OBSTRUCTION OR 10/08/2017 MARCIA NAVAS, MITESH Witt Ot K43.2 INCISIONAL HERNIA WITHOUT OBSTRUCTION OR 10/12/2017 IGOR SOLIZ DO Ot I05.1 RHEUMATIC MITRAL INSUFFICIENCY 10/12/2017 IGOR SOLIZ DO Ot I10 ESSENTIAL (PRIMARY) HYPERTENSION 10/12/2017 IGOR SOLIZ DO Ot R53.83 OTHER FATIGUE Procedures Code Description Performed By Performed On 37.22 LEFT HEART CARDIAC CATH 08/09/2013 88.53 LT HEART ANGIOCARDIOGRAM 08/09/2013 88.56 CORONAR ARTERIOGR-2 CATH 08/09/2013 Results Test Result Range Complete blood count (CBC) with automated white blood cell (WBC) differential - 04/13/16 02:26 Blood leukocytes automated count (number/volume) 10.4 10*3/uL 4.3-11.0 Blood erythrocytes automated count (number/volume) 4.89 10*6/uL 4.35-5.85 Venous blood hemoglobin measurement (mass/volume) 15.4 [...] Automated blood platelet mean volume measurement 10.5 [foz_us] 7.4-10.4 Automated blood neutrophils/100 leukocytes 73 % [...] Serum or plasma sodium measurement (moles/volume) 139 mmol/L 135-145 Serum or plasma potassium measurement (moles/volume) 4.7 mmol/L 3.6-5.0 Serum or plasma chloride measurement (moles/volume) 105 mmol/L 98-107 Carbon dioxide 26 mmol/L 21-32 Serum or plasma anion gap determination (moles/volume) 8 mmol/L 5-14 Serum or plasma urea nitrogen measurement (mass/volume) 16 mg/dL 7-18 Serum or plasma creatinine measurement (mass/volume) 0.81 mg/dL 0.60-1.30 Serum or plasma urea nitrogen/creatinine mass [...] Urine pH measurement by test strip 5 5-9 Specific gravity of urine by test strip 1.025 1.016- 1.022 Urine protein assay by test strip, semi-quantitative [...] 10:02 Blood leukocytes automated count (number/volume) 7.5 10*3/uL 4.3-11.0 Blood erythrocytes automated count (number/volume) 4.92 10*6/uL 4.35-5.85 Venous blood hemoglobin measurement (mass/volume) 15.0 [...] Automated blood platelet mean volume measurement 10.7 [foz_us] 7.4-10.4 Automated blood neutrophils/100 leukocytes 67 % [...] Serum or plasma sodium measurement (moles/volume) 139 mmol/L 135-145 Serum or plasma potassium measurement (moles/volume) 4.2 mmol/L 3.6-5.0 Serum or plasma chloride measurement (moles/volume) 106 mmol/L 98-107 Carbon dioxide 26 mmol/L 21-32 Serum or plasma anion gap determination (moles/volume) 7 mmol/L 5-14 Serum or plasma urea nitrogen measurement (mass/volume) 11 mg/dL 7-18 Serum or plasma creatinine measurement (mass/volume) 0.83 mg/dL 0.60-1.30 Serum or plasma urea nitrogen/creatinine mass [...] Status Pt. Type Provider Facility Loc./Unit Complaint [id number] 04/26/2014 15:14:34 04/26/2014 23:59:59 CLS Outpatient Elizabeth Pimentel [id number] 10/08/2017 06:42:00 10/08/2017 23:59:59 CLS Outpatient IGOR SOLIZ DO Via [facility] CARD FATIGUE [id number] 12/03/2016 10:13:00 12/03/2016 16:45:00 DIS Outpatient MITESH KENNEDY MD Via [facility] STONES, RECURRENT IRREDUCIBLE VENTRAL HERNIA [id number] 11/30/2016 09:41:00 11/30/2016 10:07:00 DIS Outpatient MITESH KENNEDY MD Via [facility] PREOP RECURRENT VENTRAL HERNIA [id number] 11/27/2016 06:49:00 11/27/2016 23:59:59 CLS Outpatient MITESH KENNEDY MD Via [facility] RAD INCARCERATED RECURRENT VENTRAL HERNIA [id number] 04/13/2016 02:11:00 04/13/2016 05:50:00 DIS Emergency NICOLE PAEZ MD Via [facility] ER AB PAIN [id number] 05/03/2015 07:21:00 05/03/2015 10:35:00 DIS Outpatient WOLF GOMEZ MD Via [facility] SDC SCREENING [id number] 05/01/2015 05:42:00 05/01/2015 23:59:59 CLS Outpatient WOLF GOMEZ MD Via [facility] PREOP SCREENING COLONSCOPY [id number] 05/22/2014 11:23:00 05/22/2014 23:59:59 CLS Outpatient IGOR SOLIZ DO Via [facility] RAD PULMONARY NODULE [id number] 11/21/2013 13:19:00 11/21/2013 23:59:59 CLS Outpatient MARTÍNEZ IGOR Jocelin [facility] RAD MALIGNANT MELANOMA [id number] 08/09/2013 11:57:00 08/09/2013 18:52:00 DIS Outpatient IGOR SOLIZ DO [facility] CATH CP/HEART CATH [id number] 01/20/2013 11:11:00 01/20/2013 23:59:59 CLS Outpatient BERTIN CARTAGENA MD Via [facility] RAD CHEST MASS, GOITER [id number] 12/13/2012 06:51:00 12/13/2012 23:59:59 CLS Outpatient MITESH KENNEDY MD Via [facility] RAD RIGHT THYROID NODULE [id number] 11/25/2012 15:03:00 11/25/2012 23:59:59 CLS Outpatient KHOA SOLIZ Via [facility] RAD THYROIDMEGALY [id number] 11/16/2012 09:29:00 11/16/2012 23:59:59 CLS Outpatient MITESH KENNEDY MD Via [facility] RAD MELANOMA [id number] 11/09/2012 12:56:00 11/09/2012 23:59:59 CLS Outpatient MITESH KENNEDY MD Via [facility] PREOP MELANOMA [id number] 10/20/2017 08:00:00 PEN Preadmit KAN HAINES MD Via [facility] ABN STRESS TEST,DYSPNEA,FATIGUE [id number] 05/22/2014 11:29:00 Document Registration [id number] 05/03/2012 07:50:00 Document Registration [id number] 04/27/2012 07:54:00 Document Registration [id number] 11/03/2011 20:05:00 Document Registration [id number] 09/08/2011 19:56:00 Document Registration [id number] 10/31/2010 07:50:00 Document Registration
[2017-10-20] MEDS ORDERED: NS IV 1000 ML 1,000 ML IV SCH ×2 (07:00→08:44)
[2017-10-20 07:21] LABS: BILIRUBIN,URINE NEGATIVE (NEGATIVE); CLARITY,URINE CLEAR; COLOR,URINE YELLOW; GLUCOSE, URINE (UA) NEGATIVE (NEGATIVE); KETONES,URINE NEGATIVE (NEGATIVE); LEUKOCYTE ESTERASE ,URINE NEGATIVE (NEGATIVE); NITRITE,URINE NEGATIVE (NEGATIVE); PH,URINE 5 (5-9); PROTEIN,URINE NEGATIVE (NEGATIVE); UROBILINOGEN,URINE NORMAL (NORMAL)
[2017-10-20 07:24] LABS: HEMOGLOBIN 15.8 G/DL (13.3-17.7); MEAN PLATELET VOLUME 10.1 FL (7.4-10.4); RED BLOOD COUNT 4.96 10^6/uL (4.35-5.85); RED CELL DISTRIBUTION WIDTH 12.6 % (10.0-14.5); WHITE BLOOD COUNT 9.1 10^3/uL (4.3-11.0)
[2017-10-20] MEDS ORDERED: LIDOCAINE 1% INJ 20 ML 20 ML VIAL ONE (07:26)
[2017-10-20] MEDS ORDERED: HEParin 1000 UNIT/ML (10ML VIAL) FOR BOLUS ONE (07:26)
[2017-10-20] MEDS ORDERED: LEVO75TA6 PO (07:35)
[2017-10-20] MEDS ORDERED: RED1000P MC (07:35)
[2017-10-20] MEDS ORDERED: GLUC-144 PO (07:35)
[2017-10-20] MEDS ORDERED: KRIL1CAP22 PO (07:35)
[2017-10-20] MEDS ORDERED: UBID300C PO (07:35)
[2017-10-20 07:36] LABS: BACTERIA,URINE NEGATIVE /HPF
[2017-10-20 07:40] LABS: PROTHROMBIN TIME PATIENT 12.9 SEC (12.2-14.7)
--- NOTE | 2017-10-20 07:48 | Diagnostic Imaging Report ---
INDICATION: Heart catheter. Comparison with 08/09/2013. FINDINGS: Portable chest shows the lungs to be clear. Heart is mildly enlarged. There is no evidence of pulmonary edema. No pneumothorax or pleural effusions. IMPRESSION: Mild cardiac enlargement, otherwise negative chest. Dictated by: Dictated on workstation # [id number]
[2017-10-20 07:49] LABS: ALANINE AMINOTRANSFERASE 25 U/L (0-55); ALBUMIN 4.4 GM/DL (3.2-4.5); ALKALINE PHOSPHATASE 86 U/L (40-136); BUN/CREATININE RATIO 16; CALCIUM 9.6 MG/DL (8.5-10.1); CARBON DIOXIDE 27 MMOL/L (21-32); CHLORIDE 106 MMOL/L (98-107); CHOLESTEROL 157 MG/DL (< 200); CREATININE SERUM 0.76 MG/DL (0.60-1.30); GFR ESTIMATED > 60; GLUCOSE 106 MG/DL (70-105); HDL CHOLESTEROL 38 MG/DL (40-60); SODIUM 141 MMOL/L (135-145); TRIGLYCERIDES 89 MG/DL (<150); VLDL CHOLESTEROL 18 MG/DL (5-40)
--- NOTE | 2017-10-20 08:44 | Cardiac Procedure Note-CS/ASA ---
Pre-Procedure Note Pre-Op Procedure Note H&P Reviewed The H&P was reviewed, patient examined and no changes noted. Date H&P Reviewed: October 20, 2017 Time H&P Reviewed: 08:44 Conscious Sedation Pre-Proced Time Reviewed: 08:44 ASA Class: 3 Airway Mallampati Classification: ([place] appropriate class) I. II. III, IV Lungs Heart ASA score ASA 1: a normal healthy patient ASA 2: a patient with a mild systemic disease (mid diabetes, controlled hypertension, obesity X ASA 3: a patient with a severe systemic disease that limits activity (angina , COPD, prior Myocardial infarction) ASA 4: a patient with an incapacitating disease that is a constant threat to life (CHF, renal failure) ASA 5: a moribund patient not expected to survive 24 hrs. (ruptured aneurysm) ASA 6: a declared brain patient whose organs are being harvested. For emergent operations, add the letter E after the classification Grade 3 Sedation Plan: Analgesia, Amnesia, Plan communicated to team members, Discussed options with patient/fam, Discussed risks with patient/fam Note The patient is an appropriate candidate to undergo the planned procedure, sedation, and anesthesia. The patient immediately re-assessed prior to indication. KAN HAINES MD October 20, 2017 08:44
[2017-10-20] MEDS ORDERED: PATIENT MAY USE OWN MEDS, ALL PO SCH (08:45)
--- NOTE | 2017-10-20 08:47 | Discharge Inst-Post CATH ---
Discharge Inst-CATH Post Cardiac Cath D/C Inst Follow Up/Plan Appointment with Dr Vasquez's office in 2-4 weeks CARDIAC CATH DISCHARGE INSTRUCTIONS *Hold Metformin for 48 hours post heart cath. ACTIVITY * Go Home directly and rest. * Limit activity of the leg (or wrist if it was used) for 7 days including aerobics, swimming, jogging, bicycling, etc. * Restrict stair-climbing for 7 days if possible, if not, climb up with your non -cath leg, then bring together on the same step. * Avoid lifting, pushing, pulling or excessive movement of the affected extremity for 7 days. * Customary sexual activity may be resumed after 2 days-use caution not to use a position that strains or causes pain to the affected extremity. * No driving for 24 hours. * NO SMOKING. * Avoid straining for bowel movements for 7 days. * Gentle walking on level ground is allowed. * Returning to work will depend on the type of procedure and the results. Your doctor will discuss this with you. CALL YOUR DOCTOR FOR ANY OF THE FOLLOWING: *If bleeding from the puncture site occurs- Apply gentle pressure to site with clean cloth and call your doctor or EMS. * If a knot or lump forms under the skin, increases in size, or causes pain. * If bruising appears to be worsening or moving further down your leg instead of disappearing. * Temperature above 101 F. CARE OF YOUR GROIN INCISION; * Bruising or purple discoloration of the skin near the puncture site is common. * You may shower only, no bathtub bathing for 5 days. Be careful to avoid slipping as your leg may feel stiff. * If a closure device was used on your femoral artery, please see the attached guide regarding care of the device and your leg. * REMOVE the dressing from your groin the next day after your procedure in the shower. CARE OF YOUR WRIST INCISION; * Bruising or purple discoloration of the skin near the puncture site is common. * You may shower. * DO NOT submerge wrist. * Remove dressing in 24 hours. KAN VASQUEZ MD October 20, 2017 08:47
--- NOTE | 2017-10-20 10:13 | Cardiac Cath Report ---
Cardiac Cath Report Physician (s)/Salesperson [employer] (s) Physician KAN HAINES MD Pre-Procedure Diagnosis Pre-Procedure Diagnosis: coronary artery disease Post-Procedure Note Procedure Start Date: October 20, 2017 Name of Procedure: Left heart catheterization Findings/Procedure Note PROCEDURE NOTE: After explaining the procedure to the patient, all pros and cons were explained , all questions were answered. The patient signed the consent and then he was placed on the cardiac catheterization laboratory. Groin was prepped SL fashion local anesthesia was used. Sheath placed in the right femoral artery. Betsy right and left catheter were used to access the coronary system. JR was used to access the left ventricular cavity. Left ventriculogram was not done, pressure was measured At the end of the procedure the sheath was removed. Closure device was used FINDINGS: Hemodynamics LV 94/13, end-diastolic pressure of 13 Aorta 90/52 mean of 65 ANATOMY: Left Main is free of obstructive disease Left Anterior Descending has mild disease nonobstructive disease Left Circumflex has mild disease nonobstructive disease Right Coronory Artery has mild disease nonobstructive disease LV Gram was not done, pressure was measured CONCLUSION: 1. Mild coronary artery disease nonobstructive disease 2. Normal left ventricular end-diastolic pressure. DISCUSSION AND RECOMMENDATION: Medical therapy is recommended no intervention is warranted, no contraindication by cardiology to proceed with the planned surgery Anesthesia Type: Conscious Sedation Estimated blood loss (mL): 10 ml Contrast Amount: 30 ml Total Radiation Dose: 469 mGy Post-Procedure Diagnosis Post-operative diagnosis: Chest pain nonspecific etiology Hyperlipidemia Coronary artery disease KAN HAINES MD October 20, 2017 10:13 am
== END 2017-10-20 13:20 | disposition home or self-care (01) ==
LOC: CATH 06:53 → SURG 09:01 → CATH 13:20
PROVIDERS: ATTEND Internal Medicine Cardiovascular Disease
DX: R07.89 Other chest pain (principal); I25.10 Atherosclerotic heart disease of native coronary artery without angina pectoris; E78.5 Hyperlipidemia, unspecified; Z87.891 Personal history of nicotine dependence; Z82.49 Family history of ischemic heart disease and other diseases of the circulatory system; I65.23 Occlusion and stenosis of bilateral carotid arteries; G56.00 Carpal tunnel syndrome, unspecified upper limb
CPT/HCPCS: 36415; 71045; 80053; 80061; 81000; 85027; 85610; 85730; 87081; 93458

== ENCOUNTER 2019-10-30 08:58 | Outpatient (RCR) | payer MEDICARE ==
[~2019-10-30] VITALS: Ht 182 cm; Wt 109.0 kg
[~2019-10-30 08:58] MED LIST changes: +GLUC-144 PO; +KRIL1CAP22 PO; +LEVO25TA5 PO; +LEVO75TA6 PO; +OCUVITE SOFTGE1 EACH PO; +RED1000P MC; +UBID300C PO; -VIT1CAPS9 PO
== END 2019-10-30 16:12 | disposition home or self-care (01) ==
LOC: PREOP 08:58
PROVIDERS: ATTEND Internal Medicine
DX: Z01.818 Encounter for other preprocedural examination (principal); Z11.59 Encounter for screening for other viral diseases
CPT/HCPCS: 87635

== ENCOUNTER 2019-11-03 07:21 | Day surgery (SDC) | payer MEDICARE, OTHER ==
--- NOTE | 2019-11-02 14:22 | HISTORY AND PHYSICAL ---
DATE OF SERVICE: ADDENDUM COLONOSCOPY HISTORY AND PHYSICAL This is an addendum summary. The patient was initially seen on 08/22/2019, but screening colonoscopy was delayed due to COVID-19. The patient reports no interval change in health history. No chest pain or shortness of breath, no medication change. No blood thinner therapy. PHYSICAL EXAMINATION: GENERAL: Reveals a well-appearing white male, in no acute distress. VITAL SIGNS: Blood pressure 116/72. CHEST: Clear. CARDIOVASCULAR: Regular rate and rhythm without murmur, S3 or S4. ABDOMEN: Nontender, nondistended. ASSESSMENT: No contraindications to proceeding with planned screening colonoscopy, deemed to be higher than average risk as there is a family history for colon cancer and a past history of colon polyps. Index case being his sister who was diagnosed with colon cancer at the age of 49. Job ID: [id number] DocumentID: [id number] Dictated Date: 11/02/2019 14:08:08 Steel Shot Header Operator Date: 11/02/2019 14:21:12 Dictated By: WOLF GOMEZ MD
[~2019-11-03] VITALS: Ht 182 cm; Wt 109.0 kg
[2019-11-03] VITALS (15 sets, daily range): BP systolic 103–123; BP diastolic 57–80
[2019-11-03] MEDS ORDERED: D5 LR IV SOLUTION 1,000 ML IV ONE (07:23)
[2019-11-03] MEDS ORDERED: D5 LR IV SOLUTION 1,000 ML IV STA (07:34)
[2019-11-03] MEDS ORDERED: LIDOCAINE JELLY 2% 6 ML SYRINGE MM PRN (07:45)
[2019-11-03] MEDS ORDERED: fentaNYL INJECTION 100 MCG/2 ML AMP IVP ONE (07:45)
[2019-11-03] MEDS ORDERED: MIDAZOLAM 5 MG/5 ML (VERSED) VIAL IV PRN (07:45)
--- NOTE | 2019-11-03 07:52 | Pre-Op Note & Conscious Sedat ---
Pre-Operative Progress Note H&P Reviewed The H&P was reviewed, patient examined and no changes noted. Date H&P Reviewed: November 03, 2019 Time H&P Reviewed: 07:52 Conscious Sedation Pre-Proced ASA Score 2 For ASA 3 and 4: Consider anesthesia and medical clearance. Also, for patients with a history of failed moderate sedation consider anesthesia. Airway Lungs Heart ASA score ASA 1: a normal healthy patient ASA 2: a patient with a mild systemic disease (mid diabetes, controlled hypertension, obesity ASA 3: a patient with a severe systemic disease that limits activity (angina, COPD, prior Myocardial infarction) ASA 4: a patient with an incapacitating disease that is a constant threat to life (CHF, renal failure) ASA 5: a moribund patient not expected to survive 24 hrs. (ruptured aneurysm) ASA 6: a declared brain- patient whose organs are being harvested. For emergent operations, add the letter E after the classification Mallampati Classification Grade 2 Sedation Plan Analgesia, Amnesia, Plan communicated to team members, Discussed options with patient/fam, Discussed risks with patient/fam The patient is an appropriate candidate to undergo the planned procedure, sedation, and anesthesia. The patient immediately re-assessed prior to indication. WOLF GOMEZ MD November 03, 2019 07:52
[2019-11-03] MEDS ORDERED: fentaNYL INJECTION 100 MCG/2 ML AMP ONE (08:04)
[2019-11-03] MEDS ORDERED: LIDOCAINE JELLY 2% 6 ML SYRINGE ONE (08:04)
[2019-11-03] MEDS ORDERED: MIDAZOLAM 5 MG/5 ML (VERSED) VIAL ONE (08:05)
--- OUTSIDE RECORDS SUMMARY | 2019-11-03 08:11 | XMS REPORT ---
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 Products Name Role Phone IGOR SOLIZ Unavailable MARCIA NAVAS, MITESH Witt Unavailable Unavailable JEANNINE NAVAS, NICOLE Caballero Unavailable Unavailable AKN HAINES MD Unavailable Unavailable MITESH KENNEDY MD Unavailable Unavailable IGOR SOLIZ DO Unavailable Unavailable JEANNINE NAVAS, NICOLE Caballero Unavailable Unavailable PATRICIA NAVAS, WOLF Magana Unavailable Unavailable Unavailable Unavailable Unavailable Unavailable Unavailable Unavailable Allergies Normalized Allergy Reported Date of Reaction(s) Care Provider Facility Allergy Type classification allergen Allergy Onset DA (21 Unclassified No Known Drug 05-03-2015 - no information MITESH KENNEDY Not Available sources.) Allergies , (59000) Medications No Information Problems Active Problems Problem Normalized Date Last Normalized Normalized Provider Fa cility Classification Problem(s) Recorded Problem Problem Sta tus Duration 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 NICOLE Not Available atherosclerosi c heart JEANNINE , (43973) s and other disease of heart disease [place] (25 sources.) coronary artery without angina pectoris Translations: [ CORONARY ATHEROSCLEROSI S OF RESIGHINI CORON] Other and Benign Episodic Active WOLF GOMEZ , Not Avai lable unspecified neoplasm of (98853) benign cecum neoplasm (3 sources.) Other and Benign Episodic Active MITESH KENNEDY Not Avai lable unspecified neoplasm of , (63226) benign skin of trunk, neoplasm (6 except scrotum sources.) Hyperplasia of Benign Chronic Active WOLF GOMEZ , Not Available prostate (3 prostatic (20849) sources.) hyperplasia without lower urinary tract symptoms Other nervous Carpal tunnel 10-25-2019 - Chronic Active CHACORTA HAINES [facility] Via system syndrome, [place] disorders (4 unspecified Hospital - sources.) upper limb [place] ([address]) Spondylosis; Cervicalgia Episodic Active IGOR Not María Elena ilable intervertebral DO MARTÍNEZ (76726) disc disorders; other back problems (3 sources.) Diverticulosis Diverticulosis Chronic Active WOLF GOMEZ , Not Available and of intestine, (81938) diverticulitis part (4 sources.) unspecified, without perforation or abscess without bleeding Translations: [ DIVERTICULOSIS COLON (W/O MENT OF HEMORR] Unclassified Encounter for Episodic Active WOLF GOMEZ , Not Available (5 sources.) screening for (19185) malignant neoplasm of colon Immunizations Encounter for 10-25-2019 - Episodic Active DAWN KENNEDY Not Available and screening screening for , (19471) for infectious other disease (19 bacterial sources.) diseases Translations: [ SCREEN-BACTERI AL DIS NEC, ENCOUNTER FOR SCREENING FOR OTHER VIRAL ] Essential Essential 10-25-2019 - Chronic Active IGOR [facility] Via hypertension (primary) DO Renu SOLIZ (6 sources.) hypertension [facility] (41969) Unclassified Family history 10-25-2019 - Episodic Active WILLI AM Not Available (10 sources.) of ischemic DO MARTÍNEZ (66641) heart disease and other diseases of the circulatory system Translations: [ FAMILY HISTORY OF MALIGNANT NEOPLASM OF , FAM HX-ISCHEM HEART DIS] Thyroid Goiter, Chronic Active KHOA Not Available disorders (9 unspecified SOLIZ (84288) sources.) Translations: [ NONTOX UNINODULAR GOITER] Other liver Hepatomegaly, 10-25-2019 - Episodic Active NICOLE [facility] Via diseases (9 not elsewhere Renu PAEZ sources.) classified [facility] ([address]48) Disorders of Hyperlipidemia 10-25-2019 - Chronic Active CHACORTA HAINES [facility] Via lipid , unspecified [facility] metabolism (4 Hospital - sources.) [place] ([address]) Abdominal Incisional 10-25-2019 - Episodic Active MITESH GARCIA NS Not Available hernia (35 hernia with , (13863) sources.) obstruction, without gangrene Translations: [ INCISIONAL HERNIA WITHOUT OBSTRUCTION OR, UMBILICAL HERNIA WITHOUT OBSTRUCTION OR , UMBILICAL HERNIA WITHOUT OBSTRUCTION OR ] Melanomas of Melanoma of Chronic Active MITESH KENNEDY No t Available skin (8 skin, site , (41446) sources.) unspecified Translations: [ MAL MELANOM FACE NEC/NOS] Substance-rela Nicotine 10-25-2019 - Chronic Active IGOR Not Available emily disorders dependence, DO MARTÍNEZ (40799) (21 sources.) chewing tobacco, uncomplicated Translations: [ TOBACCO USE DISORDER] Unclassified Obstructive 10-25-2019 - Chronic Active MITESH HINDS Not Available (18 sources.) sleep apnea MD (11118) (adult) (pediatric) Residual Obstructive Chronic Active IGOR Not Availa ble codes; sleep apnea DO MARTÍNEZ (48624) unclassified (adult)(pediat (2 sources.) sera) 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-25-2019 - Chronic Active KAN HAINES [facility] Via 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 Hospital - arteries (4 carotid [place] sources.) arteries (05171) Nonspecific Other chest 10-25-2019 - Episodic Active IGOR Not Available chest pain (7 pain DO MARTÍNEZ (00643) sources.) Translations: [ CHEST PAIN NEC] Malaise and Other fatigue 10-25-2019 - Episodic Active IGOR [facility] Via fatigue (6 DO Renu SOLIZ sources.) [facility] [place] ([address]) Other lower Other Episodic Active IGOR Not Availab le respiratory nonspecific DO MARTÍNEZ (19436) disease (2 abnormal sources.) finding of lung field Screening and Personal 10-25-2019 - Episodic Active KAN ANDRADE [facility] Via history of history of [facility] and substance dependence [place] abuse codes (4 (04517) sources.) 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 IGOR [facility] Via disorders (6 mitral DO Renu SOLIZ sources.) insufficiency [facility] [place] ([address]) Other lower Solitary Episodic Active IGOR Not Availab le respiratory pulmonary DO MARTÍNEZ (76801) disease (3 nodule sources.) Other skin Swelling, Episodic Active BERTIN Not Availab le disorders (3 mass, or lump MD MITZI (15406) sources.) in chest Past or Other Problems Problem Normalized Date Last Normalized Normalized Provider Fa cility Classification Problem(s) Recorded Problem Problem Sta tus Duration Residual Family history Episodic Completed WOLF GOMEZ No t Available codes; of malignant (39760) unclassified neoplasm of (1 source.) gastrointestin al tract Other Follow-up Episodic Completed Dina SCOTT María Elena ilable aftercare (1 examination, (05969) source.) following other surgery Other and Personal Episodic Completed WOLF GOMEZ , Not 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 history of (24567) benign colonic polyps neoplasm (1 source.) Procedures Procedure Normalized Procedure Procedure Result Performer Facility Date Left heart cardiac no information no name Not Availab le (54993) catheterization Immunizations No Information Results Test Name Value Interpretation Reference Range Date Time Fa cility (Normalized) (Normalized) (Medline Reference) laboratory on 2019-10-30 Coronavirus Ab Negative (no code) 10-30-2019 PENDING LOC ATION Qn (S) 09:0400 [facility] (14392) Vital Signs The data below is from unstructured sources Vital Response Date/Time Temperature (Fahrenheit) 97.8 degree s F (97.6 - 99.5) 05/03/2015 11:06am Temperature (Calculated Celsius) 36. 73672 degrees C (36.4 - 37.5) 05/03/2015 11:06am Temperature Source Tympanic 05/03/2015 11:06am Pulse Rate (adult) 53 bpm (60 - 90) 05/03/2015 11:06am Respiratory Rate 18 bpm (12 - 24) 05/03/2015 11:06am O2 Sat by Pulse Oximetry 96 % (88 - 100) 05/03/2015 11:06am Blood Pressure 131/80 mm Hg 05/03/2015 11:06am Blood Pressure Mean 86 mm Hg 05/03/2015 7:30am Pain Pain Intensity 0 2014 11:06am Height (Feet) 6 feet 7:30am Height (Inches) 1.00 inches 05/03/2015 7:30am Height (Calculated Centimeters) 185. 861934 cm 05/03/2015 7:30am Weight (Pounds) 240 pounds 05/03/2015 7:30am Weight (Calculated Grams) 738445.170 gm 05/03/2015 7:30am Weight (Calculated Kilograms) 108.86 2170 kilograms 05/03/2015 7:30am Calculated BMI 31.66 7:25am Vital Response Date/Time Pulse Rate (adult) 70 bpm (60 - 90) 11/30/2016 9:57am O2 Sat by Pulse Oximetry 93 % (88 - 100) 11/30/2016 9:57am Blood Pressure 109/73 mm Hg 11/30/2016 9:57am Blood Pressure Mean 85 mm Hg 11/30/2016 9:57am Pain Numeric Pain Scale 0-No Pain 11/30/2016 9:57am Height (Feet) 6 feet 05/2017 9:56am Height (Inches) 1.00 inches 11/30/2016 9:56am Height (Calculated Centimeters) 185. 789998 cm 11/30/2016 9:56am Weight (Pounds) 237 pounds 11/30/2016 9:56am Weight (Ounces) 5.0 oz 0 11/30/2016 9:56am Weight (Calculated Grams) 452426.14 gm 11/30/2016 9:56am Weight (Calculated Kilograms) 107.64 3140 kilograms 11/30/2016 9:56am Calculated BMI 31.3 11/19 9:56am Vital Response Date/Time Temperature (Fahrenheit) 98.3 degree s F (97.6 - 99.5) 12/03/2016 4:40pm Temperature (Calculated Celsius) 36. 65665 degrees C (36.4 - 37.5) 12/03/2016 4:30pm Temperature Source Temporal 12/03/2016 4:40pm Pulse Rate (adult) 68 bpm (60 - 90) 12/03/2016 4:40pm Respiratory Rate 18 bpm (12 - 24) 12/03/2016 4:40pm O2 Sat by Pulse Oximetry 96 % (88 - 100) 12/03/2016 4:40pm Blood Pressure 112/66 mm Hg 12/03/2016 4:40pm Blood Pressure Mean 88 mm Hg 12/03/2016 11:00am Pain Numeric Pain Scale 0-No Pain 12/03/2016 4:40pm Pain Intensity 4 2016 4:30pm Height (Feet) 6 feet 11:05am Height (Inches) 1.00 inches 12/03/2016 11:05am Height (Calculated Centimeters) 185. 280939 cm 12/03/2016 11:05am Weight (Pounds) 237 pounds 12/03/2016 11:05am Weight (Ounces) 5.0 oz 0 12/03/2016 11:05am Weight (Calculated Grams) 243469.14 gm 12/03/2016 11:05am Weight (Calculated Kilograms) 107.64 3140 kilograms 12/03/2016 11:05am Calculated BMI 31.3 11/19 11:05am Vital Response Date/Time Temperature (Fahrenheit) 98.7 degree s F (97.6 - 99.5) 10/20/2017 1:20pm Temperature (Calculated Celsius) 37. 58413 degrees C (36.4 - 37.5) 10/20/2017 1:00pm Temperature Source Temporal 10/20/2017 1:20pm Pulse Rate (adult) 57 bpm (60 - 90) 10/20/2017 1:20pm Respiratory Rate 14 bpm (12 - 24) 10/20/2017 1:20pm O2 Sat by Pulse Oximetry 95 % (88 - 100) 10/20/2017 1:20pm Blood Pressure 108/58 mm Hg 10/20/2017 1:20pm Blood Pressure Mean 75 mm Hg (65 - 110) 10/20/2017 1:00pm Pain Numeric Pain Scale 0-No Pain 10/20/2017 1:20pm Height (Feet) 6 feet 07/2017 6:56am Height (Inches) 1.00 inches 10/20/2017 6:56am Height (Calculated Centimeters) 185. 266627 cm 10/20/2017 6:56am Weight (Pounds) 237 pounds 10/20/2017 6:56am Weight (Ounces) 5.0 oz 0 10/20/2017 6:56am Weight (Calculated Grams) 037339.14 gm 10/20/2017 6:56am Weight (Calculated Kilograms) 107.64 3140 kilograms 10/20/2017 6:56am Calculated BMI 31.3 07/2017 6:56am Vital Response Date/Time Temperature (Fahrenheit) 98.7 degree s F (97.6 - 99.5) 10/20/2017 1:20pm Temperature (Calculated Celsius) 37. 09004 degrees C (36.4 - 37.5) 10/20/2017 1:00pm Temperature Source Temporal 10/20/2017 1:20pm Pulse Rate (adult) 57 bpm (60 - 90) 10/20/2017 1:20pm Respiratory Rate 14 bpm (12 - 24) 10/20/2017 1:20pm O2 Sat by Pulse Oximetry 95 % (88 - 100) 10/20/2017 1:20pm Blood Pressure 108/58 mm Hg 10/20/2017 1:20pm Blood Pressure Mean 75 mm Hg (65 - 110) 10/20/2017 1:00pm Pain Numeric Pain Scale 0-No Pain 10/20/2017 1:20pm Height (Feet) 6 feet 07/2017 6:56am Height (Inches) 1.00 inches 10/20/2017 6:56am Height (Calculated Centimeters) 185. 052366 cm 10/20/2017 6:56am Weight (Pounds) 237 pounds 10/20/2017 6:56am Weight (Ounces) 5.0 oz 0 10/20/2017 6:56am Weight (Calculated Grams) 950489.14 gm 10/20/2017 6:56am Weight (Calculated Kilograms) 107.64 3140 kilograms 10/20/2017 6:56am Calculated BMI 31.3 07/2017 6:56am Interventions No Information Plan of Treatment The data below is from unstructured sources Discharge Date 05/03/15 10:35am Instructions/Education Provided [place] noscopic Polypectomy (DC) Prescriptions See Medication Section Discharge Date 11/30/16 10:07am Prescriptions See Medication Section Discharge Date 12/03/16 4:45pm Instructions/Education Provided ANES THESIA INSTRUCTIONS POSTOP Cholecystectomy, Laparoscopic Surgery Abdominal Hernia Repair, Laparoscopic Surgery Prescriptions See Medication Section Discharge Date 10/20/17 1:20pm Instructions/Education Provided CARD IAC CATH DISCHARGE INSTRUC Prescriptions See Medication Section Discharge Date 10/20/17 1:20pm Instructions/Education Provided CARD IAC CATH DISCHARGE INSTRUC Prescriptions See Medication Section Goals No Information Social History No Information Functional Status The data below is from unstructured sourcesNo functional status results.No functional status information available.No functional status information available.No functional status information available.No functional status information available.No functional status information available.No functional status information available. Mental Status No Information Encounters Encounter Normalized Encounter Encounter Diagnosis Care Provi yoshi Organization Date Type 04-13-2016 Emergency department no information no name no organization name - patient visit 04-13-2016 04-12-2016 Emergency department no information NICOLE MASONN [facility] [address] - patient visit (no phone) [facility] 04-13-2016 (no phone) 10-20-2017 Patient encounter no information no name no or ganization name - 10-20-2017 12-03-2016 Patient encounter no information no name no or ganization name - 12-03-2016 05-03-2015 Patient encounter no information no name no or ganization name - 05-03-2015 05-22-2014 Patient encounter no information no name no or ganization name 11-21-2013 Patient encounter no information no name no or ganization name 08-09-2013 Patient encounter no information no name no or ganization name - 08-09-2013 01-20-2013 Patient encounter no information no name no or ganization name 12-13-2012 Patient encounter no information no name no or ganization name 11-25-2012 Patient encounter no information no name no or ganization name 11-16-2012 Patient encounter no information no name no or ganization name 11-09-2012 Patient encounter no information no name no or ganization name 11-03-2019 Patient encounter no information WOLF GOMEZ MD (no [facility] procedure phone) [facility] (no phone) 10-30-2019 Patient encounter no information WOLF GOMEZ MD (no [facility] - procedure phone) [facility] 10-30-2019 (no phone) 10-27-2019 Patient encounter no information WOLF GOMEZ MD (no [facility] procedure phone) [facility] (no phone) 10-27-2019 Patient encounter no information WOLF GOMEZ MD (no [facility] procedure phone) [facility] (no phone) 10-20-2017 Patient encounter no information KAN HAINES MD (no [facility] - procedure phone) [facility] 10-20-2017 (no phone) 10-08-2017 Patient encounter no information IGOR SOLIZ DO [facility] [address] procedure (no phone) [facility] (no phone) 12-03-2016 Patient encounter no information MITESH Magana [facility] - procedure (no phone) [facility] 12-03-2016 (no phone) 11-30-2016 Patient encounter no information MITESH Magana [facility] [address] - procedure (no phone) [facility] 11-30-2016 (no phone) 11-27-2016 Patient encounter no information MITESH Magana [facility] [address] procedure (no phone) [facility] (no phone) 05-03-2012 Patient encounter no information no name no or ganization name - procedure 05-03-2012 04-27-2012 Patient encounter no information no name no or ganization name procedure 11-03-2011 Patient encounter no information no name no or ganization name - procedure 11-04-2011 09-08-2011 Patient encounter no information no name no or ganization name - procedure 09-09-2011 no information Encounter for no name (no phone) preprocedural laboratory examination no information Encounter for other no name (no phone) preprocedural examination no information Pre-operative no name no organization name cardiovascular examination no information Pre-operative no name no organization name examination, unspecified Medical Equipment No Information Payers No Information Advance Directives Directive Response Recor ded Date/Time Advance Directives No 7:30am Health Care Power of Cold Roll Packer Sheet Iron No 05/03/15 7:30am Organ Donor Yes 05/03/15 7:30am Resuscitation Status Full Code 05/03/15 7:30am Directive Response Recor ded Date/Time Advance Directives No 9:49am Health Care Power of Cold Roll Packer Sheet Iron No 11/30/16 9:49am Organ Donor Yes 11/30/16 9:49am Resuscitation Status Full Code 11/30/16 9:49am Directive Response Recor ded Date/Time Advance Directives No 11:01am Health Care Power of Cold Roll Packer Sheet Iron No 12/03/16 11:01am Organ Donor Yes 12/03/16 11:01am Resuscitation Status Full Code 12/03/16 11:01am Directive Response Recor ded Date/Time Advance Directives No 6:56am Health Care Power of Cold Roll Packer Sheet Iron No 10/20/17 6:56am Organ Donor Yes 10/20/17 6:56am Resuscitation Status Full Code 10/20/17 6:56am Discharge Instructions No hospital discharge instructions.No hospital discharge instruction information available. Patient Instructions Physician Instructions New, Converted or Re-Newed RX: RX on Chart Plan of Care/Instructions/FU: dressings off in 48 hours. Incentive spirometry. Follow-up in 3 weeks. Activity as Tolerated: No Goal: no lifting or pushing over 10 pounds Discharge Diet: No Restrictions Care Plan Patient Instructions:: dressings off in 48 hours. Incentive spirometry. Follow-up in 3 weeks. Goal:: no lifting or pushing over 10 pounds No hospital discharge instruction information available. Additional Source Comments This clinical document has been generated using [employer] software that has been certified by the Office of the National Coordinator for Health Information Technology (ONC 15.99.04.3023.Diam.31.00.0.466208) and the National Committee for Home Care Assistant (NCQA, as an eMeasure certified technology). FOR RECORDS PERTAINING TO PATIENTS WHO ARE OR HAVE BEEN ENROLLED IN A CHEMICAL D EPENDENCY/SUBSTANCE ABUSE PROGRAM, SOME INFORMATION MAY BE OMITTED. This clinica l summary was aggregated from multiple sources. Caution should be exercised in using it in the provision of clinical care. This summary normalizes information from multiple sources, and as a consequence, information in this document may ma terially change the coding, format and clinical context of patient data. In yinka tion, data may be omitted in some cases. CLINICAL DECISIONS SHOULD BE BASED ON T HE PRIMARY CLINICAL RECORDS. [employer] provides no warranty or guara ntee of the accuracy or completeness of information in this document.The followi ng information is based on time limited clinical information
--- OUTSIDE RECORDS SUMMARY | 2019-11-03 08:12 | XMS REPORT | Continuity of Care Document ---
Author Organization Unknown Address Unknown Phone Unavailable Allergies Active Description Code Type Severity Reaction Onset Reported/Identified Relationship to Patient Clinical Status Yes No Known Drug Allergies [id number] Drug Allergy Mild N/A 05/03/2015 Yes No Known Drug Allergies [id number] Drug Allergy Unknown N/A 10/27/2019 Medications There is no data. Problems Date Dx Coded Attending Type Code Diagnosis Diagnosed By 05/20/1611 PATRICIA NAVAS, WOLF Magana Ot Z01.818 ENCOUNTER FOR OTHER PREPROCEDURAL EXAMIN 05/20/1611 WOLF GOMEZ MD Ot Z11. 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 05/03/2012 Ot V12.72 PER RICHARD HISTORY OF COLONIC POLYPS 05/03/2012 Ot V16.0 FAMI LY HX-GI MALIGNANCY 05/03/2012 Ot V67.09 HUNTER RICHIE FOLLOW- UP, OTHER SURGERY 08/09/2013 IGOR SOLIZ DO Ot 305.1 TOBACCO USE DISORDER 08/09/2013 IGOR SOLIZ DO Ot 414.01 CORONARY ATHEROSCLEROSIS OF [place] CORON 08/09/2013 IGOR SOLIZ DO Ot 723.1 [...] Witt Ot V72.81 05/22/2014 MARCIA NAVAS, MITESH M Ot V74.8 05/22/2014 MARCIA NAVAS, MITESH Witt Ot 172.3 05/22/2014 MARCIA NAVAS, MITESH Witt Ot 216.5 05/22/2014 KHOA SOLIZ DYER HELPER Ot 240.9 05/22/2014 MARCIA NAVAS, MITESH Witt Ot 241.0 05/22/2014 BERTIN CARTAGENA MD Ot 240.9 05/22/2014 BERTIN CARTAGENA MD Ot 786.6 05/22/2014 IGOR SOLIZ DO Ot 172.9 05/22/2014 IGOR SOLIZ DO Ot 793.19 05/22/2014 Ot 211.3 05/22/2014 Ot 562.10 05/22/2014 Ot V16.0 05/22/2014 Ot V67.09 05/22/2014 Ot V72.84 05/22/2014 MARCIA NAVAS, MITESH Witt Ot 172.3 05/22/2014 MARCIA NAVAS, MITESH Witt Ot 216.5 05/22/2014 MARCIA NAVAS, MITESH Witt Ot V72.81 05/22/2014 MARCIA NAVAS, MITESH Witt Ot V74.8 05/22/2014 MITESH KENNEDY MD Ot 172.3 05/22/2014 MARCIA NAVAS, MITESH Witt Ot 216.5 05/22/2014 KHOA SOLIZ DYER HELPER Ot 240.9 05/22/2014 MITESH KENNEDY MD Ot 241.0 05/22/2014 BERTIN CARTAGENA MD Ot 240.9 05/22/2014 BERTIN CARTAGENA MD Ot 786.6 05/22/2014 IGOR SOLIZ DO Ot 172.9 05/22/2014 IGOR SOLIZ DO Ot 793.19 06/11/2014 IGOR SOLIZ DO Ot 793.11 05/03/2015 WOLF GOMEZ MD Ot D12. 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 0 ENLARGED PROSTATE WITHOUT LOWER URINARY 05/03/2015 GOMEZ MD, WOLF D Ot Z12. 11 ENCOUNTER FOR SCREENING FOR MALIGNANT NE 05/03/2015 PATRICIA NAVAS, WOLF Magana Ot Z80. 0 FAMILY HISTORY OF MALIGNANT NEOPLASM OF 04/13/2016 Ot 211.3 IVON GN NEOPLASM LG BOWEL 04/13/2016 Ot 562.10 DIV ERTICULOSIS COLON (W/O MENT OF HEMORR 04/13/2016 Ot V16.0 FAMI LY HX-GI MALIGNANCY 04/13/2016 Ot V67.09 HUNTER RICHIE FOLLOW- UP, OTHER SURGERY 04/13/2016 Ot V72.84 EXA M PRE- OPERATIVE NOS 04/13/2016 MARCIA NAVAS, MITESH Witt Ot 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 04/13/2016 MARCIA NAVAS, MITESH Witt Ot 216.5 BENIGN SHELLY SKIN TRUNK 04/13/2016 MARCIA NAVAS, MITESH Witt Ot V72.81 [id number] CARDIOVASCULAR 04/13/2016 MARCIA NAVAS, MITESH Witt Ot V74.8 SCREEN-BACTERIAL DIS NEC 04/13/2016 MARCIA NAVAS, MITESH Witt Ot 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 04/13/2016 MARCIA NAVAS, MITESH Witt Ot 216.5 BENIGN SHELLY SKIN TRUNK 04/13/2016 KHOA SOLIZ L DYER HELPER Ot 240.9 GOITER NOS 04/13/2016 MARCIA NAVAS, [...] Z01.818 ENCOUNTER FOR OTHER PREPROCEDURAL EXAMIN 04/13/2016 WOLF GOMEZ MD Ot Z12. 11 ENCOUNTER FOR SCREENING FOR MALIGNANT NE 04/13/2016 JEANNINE NAVAS, NICOLE Caballero Ot I25.10 ATHSCL HEART DISEASE OF [place] CORONARY 04/13/2016 JEANNINE NAVAS, NICOLE T Ot K80.20 CALCULUS OF GALLBLADDER W/O CHOLECYSTITI 04/13/2016 NICOLE PAEZ MD T Ot R10.11 RIGHT UPPER QUADRANT PAIN 04/13/2016 NICOLE PAEZ MD T Ot R11.0 NAUSEA 04/13/2016 NICOLE PAEZ MD Ot R16.0 HEPATOMEGALY, NOT ELSEWHERE CLASSIFIED 04/15/2016 NICOLE PAEZ MD Ot I25.10 ATHSCL HEART DISEASE OF [place] CORONARY 04/15/2016 NICOLE PAEZ MD Ot K80.20 CALCULUS OF GALLBLADDER W/O CHOLECYSTITI 04/15/2016 NICOLE PAEZ MD Ot R10.11 RIGHT UPPER QUADRANT PAIN 04/15/2016 NICOLE PAEZ MD T Ot R11.0 NAUSEA 04/15/2016 NICOLE PAEZ MD Ot R16.0 HEPATOMEGALY, NOT ELSEWHERE CLASSIFIED 04/17/2016 NIOCLE PAEZ MD Ot I25.10 ATHSCL HEART DISEASE OF [place] CORONARY 04/17/2016 NICOLE PAEZ MD Ot K80.20 CALCULUS OF GALLBLADDER W/O CHOLECYSTITI 04/17/2016 NICOLE PAEZ MD Ot R10.11 RIGHT UPPER QUADRANT PAIN 04/17/2016 NICOLE PAEZ MD Ot R11.0 NAUSEA 04/17/2016 NICOLE PAEZ MD Ot R16.0 HEPATOMEGALY, NOT ELSEWHERE CLASSIFIED 11/29/2016 MARCIA NAVAS, MITESH Witt Ot K42.9 UMBILICAL [...] ENCOUNTER FOR SCREENING FOR OTHER BACTER 12/03/2016 MARCIA NAVAS, MITESH Witt Ot F17.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 DEPENDENCE, CHEWING TOBACCO, UN 12/03/2016 MARCIA NAVAS, MITESH M Ot G47.33 OBSTRUCTIVE SLEEP APNEA (ADULT) (PEDIATR 12/03/2016 MARCIA NAVAS, MITESH Witt Ot I25.10 ATHSCL HEART DISEASE OF [place] CORONARY 12/03/2016 MITESH KENNEDY MD Ot K43.0 INCISIONAL HERNIA WITH OBSTRUCTION, WITH 12/03/2016 MITESH KENNEDY MD Ot K80.10 CALCULUS OF GALLBLADDER W CHRONIC CHOLEC 12/08/2016 MITESH KENNEDY MD Ot F17.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 DEPENDENCE, CHEWING TOBACCO, UN 12/08/2016 MITESH KENNEDY MD Ot G47.33 OBSTRUCTIVE SLEEP APNEA (ADULT) (PEDIATR 12/08/2016 MARCIA NAVAS, MITESH Witt Ot I25.10 ATHSCL HEART DISEASE OF [place] CORONARY 12/08/2016 MITESH KENNEDY MD Ot K43.0 INCISIONAL HERNIA WITH OBSTRUCTION, WITH 12/08/2016 MITESH KENNEDY MD Ot K80.10 CALCULUS OF GALLBLADDER W CHRONIC CHOLEC 12/09/2016 MITESH KENNEDY MD Ot K42.9 UMBILICAL HERNIA WITHOUT OBSTRUCTION OR 12/09/2016 MITESH KENNEDY MD Ot K43.2 INCISIONAL HERNIA WITHOUT OBSTRUCTION OR 12/09/2016 MITESH KENNEDY MD Ot K42.9 UMBILICAL HERNIA WITHOUT OBSTRUCTION OR 12/09/2016 MITESH KENNEDY MD Ot K43.2 INCISIONAL HERNIA WITHOUT OBSTRUCTION OR 12/10/2016 MITESH KENNEDY MD Ot F17.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 DEPENDENCE, CHEWING TOBACCO, UN 12/10/2016 MITESH KENNEDY MD M Ot G47.33 OBSTRUCTIVE SLEEP APNEA (ADULT) (PEDIATR 12/10/2016 MARCIA NAVAS, MITESH Witt Ot I25.10 ATHSCL HEART DISEASE OF [place] CORONARY 12/10/2016 MITESH KENNEDY MD Ot K43.0 INCISIONAL HERNIA WITH OBSTRUCTION, WITH 12/10/2016 MITESH KENNEDY MD Ot K80.10 CALCULUS OF [...] MD Ot I25.10 ATHSCL HEART DISEASE OF [place] CORONARY 02/02/2017 MITESH KENNEDY MD Ot K43.0 INCISIONAL HERNIA WITH OBSTRUCTION, WITH 02/02/2017 MITESH KENNEDY MD Ot K80.10 CALCULUS OF GALLBLADDER W CHRONIC CHOLEC 02/02/2017 MITESH KENNEDY MD Ot K42.9 UMBILICAL HERNIA WITHOUT OBSTRUCTION OR 02/02/2017 MITESH KENNEDY MD Ot K43.2 INCISIONAL HERNIA WITHOUT OBSTRUCTION OR 02/02/2017 Ot V72.84 EXA M PRE- OPERATIVE NOS 02/02/2017 MITESH KENNEDY MD Ot 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 02/02/2017 MITESH KENNEDY MD Ot 216.5 BENIGN SHELLY SKIN TRUNK 02/02/2017 MITESH KENNEDY MD Ot V72.81 [id number]-[id number] CARDIOVASCULAR 02/02/2017 MITESH KENNEDY MD Ot V74.8 SCREEN-BACTERIAL DIS NEC 02/02/2017 MITESH KENNEDY MD Ot 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 02/02/2017 MITESH KENNEDY MD Ot 216.5 BENIGN SHELLY SKIN TRUNK 02/02/2017 KHOA SOLIZ DYER HELPER Ot 240.9 GOITER NOS 02/02/2017 MITESH KENNEDY MD Ot 241.0 NONTOX UNINODULAR GOITER 02/02/2017 BERTIN CARTAGENA MD Ot 240.9 GOITER NOS 02/02/2017 BERTIN CARTAGENA MD Ot 786.6 CHEST SWELLING/MASS/LUMP 02/02/2017 IGOR SOLIZ DO Ot 172.9 MALIG MELANOMA SKIN NOS 02/02/2017 IGOR SOLIZ DO Ot 793.19 OTHER NONSPECIFIC ABNORMAL FINDING OF PEDRO 02/02/2017 IGOR SOLIZ DO Ot 793.11 SOLITARY PULMONARY NODULE 02/02/2017 PATRICIA NAVAS, WOLF Magana Ot Z01.818 ENCOUNTER FOR OTHER PREPROCEDURAL EXAMIN 02/02/2017 WOLF GOMEZ MD Ot Z12. 11 ENCOUNTER FOR SCREENING FOR MALIGNANT NE 02/17/2017 MARCIA NAVAS, MITESH M Ot K42.9 UMBILICAL HERNIA WITHOUT OBSTRUCTION OR 02/17/2017 MARCIA NAVAS, MITESH Witt Ot K43.2 INCISIONAL HERNIA WITHOUT OBSTRUCTION OR 03/01/2017 MARCIA NAVAS, MITESH Witt Ot K42.9 UMBILICAL HERNIA WITHOUT OBSTRUCTION OR 03/01/2017 MARCIA NAVAS, MITESH Witt Ot K43.2 INCISIONAL HERNIA WITHOUT OBSTRUCTION OR 09/30/2017 MARCIA NAVAS, MITESH Witt Ot K42.9 UMBILICAL HERNIA WITHOUT OBSTRUCTION OR 09/30/2017 MITESH KENNEDY MD Ot K43.2 INCISIONAL HERNIA WITHOUT OBSTRUCTION OR 10/01/2017 MITESH KENNEDY MD Ot K42.9 UMBILICAL HERNIA WITHOUT OBSTRUCTION OR 10/01/2017 MITESH KENNEDY MD Ot K43.2 INCISIONAL HERNIA WITHOUT OBSTRUCTION OR 10/06/2017 MARCIA NAVAS, MITESH Witt Ot K42.9 UMBILICAL HERNIA WITHOUT OBSTRUCTION OR 10/06/2017 MITESH KENNEDY MD Ot K43.2 INCISIONAL HERNIA WITHOUT OBSTRUCTION OR 10/08/2017 MITESH KENNEDY MD Ot K42.9 UMBILICAL HERNIA WITHOUT OBSTRUCTION OR 10/08/2017 MITESH KENNEDY MD Ot K43.2 INCISIONAL HERNIA WITHOUT OBSTRUCTION OR 10/12/2017 IGOR SOLIZ DO Ot I05.1 RHEUMATIC MITRAL INSUFFICIENCY 10/12/2017 IGOR SOLIZ DO Ot I10 ESSENTIAL (PRIMARY) HYPERTENSION 10/12/2017 IGOR SOLIZ DO Ot R53.83 OTHER FATIGUE 10/20/2017 IGOR SOLIZ DO Ot I05.1 RHEUMATIC MITRAL INSUFFICIENCY 10/20/2017 IGOR SOLIZ DO Ot I10 ESSENTIAL (PRIMARY) HYPERTENSION 10/20/2017 IGOR SOLIZ DO Ot R53.83 OTHER FATIGUE 10/20/2017 ZAKI NAVAS, KAN Monreal Ot E78. 5 HYPERLIPIDEMIA, UNSPECIFIED 10/20/2017 KAN HAINES MD Ot G56. 00 CARPAL TUNNEL SYNDROME, UNSPECIFIED UPPE 10/20/2017 KAN HAINES MD Ot I25. 10 ATHSCL HEART DISEASE OF [place] CORONARY 10/20/2017 KAN HAINES MD Ot I65. 23 OCCLUSION AND STENOSIS OF [place]ATER[place] 10/20/2017 KAN HAINES MD Ot R07. 89 OTHER CHEST PAIN 10/20/2017 KAN HAINES MD Ot Z82. 49 FAMILY HX OF ISCHEM HEART DIS AND OTH DI 10/20/2017 KAN HAINES MD Ot Z87.891 PERSONAL HISTORY OF NICOTINE DEPENDENCE 10/21/2017 KAN HAINES MD Ot E78. 5 HYPERLIPIDEMIA, UNSPECIFIED 10/21/2017 KAN HAINES MD Ot G56. 00 CARPAL TUNNEL SYNDROME, UNSPECIFIED UPPE 10/21/2017 KAN HAINES MD Ot I25. 10 ATHSCL HEART DISEASE OF [place] CORONARY 10/21/2017 KAN HAINES MD Ot I65. 23 OCCLUSION AND STENOSIS OF [place]ATER[place] 10/21/2017 KAN HAINES MD Ot R07. 89 OTHER CHEST PAIN 10/21/2017 KAN HAINES MD Ot Z82. 49 FAMILY HX OF ISCHEM HEART DIS AND OTH DI 10/21/2017 KAN HAINES MD, Ot Z87.891 PERSONAL HISTORY OF NICOTINE DEPENDENCE 11/02/2017 IGOR SOLIZ DO Ot I05.1 RHEUMATIC MITRAL INSUFFICIENCY 11/02/2017 IGOR SOLIZ DO Ot I10 ESSENTIAL (PRIMARY) HYPERTENSION 11/02/2017 IGOR SOLIZ DO Ot R53.83 OTHER FATIGUE 11/09/2017 IGOR SOLIZ DO Ot I05.1 RHEUMATIC MITRAL INSUFFICIENCY 11/09/2017 IGOR SOLIZ DO Ot I10 ESSENTIAL (PRIMARY) HYPERTENSION 11/09/2017 IGOR SOLIZ DO Ot R53.83 OTHER FATIGUE 04/14/2018 MITESH KENNEDY MD Ot 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 04/14/2018 MITESH KENNEDY MD Ot 216.5 BENIGN SHELLY SKIN TRUNK 04/14/2018 MITESH KENNEDY MD Ot V72.81 [id number]-IYO-ORJERRTHA CARDIOVASCULAR 04/14/2018 MITESH KENNEDY MD Ot V74.8 SCREEN-BACTERIAL DIS NEC 04/14/2018 MITESH KENNEDY MD Ot 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 04/14/2018 MITESH KENNEDY MD Ot 216.5 BENIGN SHELLY SKIN TRUNK 04/14/2018 KHOA SOLIZ DYER HELPER Ot 240.9 GOITER NOS 04/14/2018 MARCIA NAVAS, MITESH Witt Ot 241.0 NONTOX UNINODULAR GOITER 04/14/2018 MITZI NAVAS, BERTIN Alfred Ot 240.9 GOITER NOS 04/14/2018 BERTIN CARTAGENA MD Ot 786.6 CHEST SWELLING/MASS/LUMP 04/14/2018 IGOR SOLIZ DO J Ot 172.9 MALIG MELANOMA SKIN NOS 04/14/2018 MARTÍNEZ RICHMOND, IGOR J Ot 793.19 OTHER NONSPECIFIC ABNORMAL FINDING OF PEDRO 04/14/2018 MARTÍNEZ RICHMOND, IGOR Monreal Ot 793.11 SOLITARY PULMONARY NODULE 04/14/2018 PATRICIA NAVAS, WOLF Magana Ot Z01.818 ENCOUNTER FOR OTHER PREPROCEDURAL EXAMIN 04/14/2018 WOLF GOMEZ MD Ot Z12. 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 04/14/2018 MITESH KENNEDY MD Ot 216.5 BENIGN SHELLY SKIN TRUNK 04/14/2018 KHOA SOLIZ DYER HELPER Ot 240.9 GOITER NOS 04/14/2018 MARCIA NAVAS, MITESH Witt Ot 241.0 NONTOX UNINODULAR GOITER 04/14/2018 BERTIN CARTAGENA MD Ot 240.9 GOITER NOS 04/14/2018 BERTIN CARTAGENA MD Ot 786.6 CHEST SWELLING/MASS/LUMP 04/14/2018 IGOR SOLIZ DO Ot 172.9 MALIG MELANOMA SKIN NOS 04/14/2018 MARTÍNEZ RICHMOND, IGOR Monreal Ot 793.19 OTHER NONSPECIFIC ABNORMAL FINDING OF PEDRO 04/14/2018 MARTÍNEZ RICHMOND, IGOR J Ot 793.11 SOLITARY PULMONARY NODULE 04/14/2018 WOLF GOMEZ MD Ot Z01.818 ENCOUNTER FOR OTHER PREPROCEDURAL EXAMIN 04/14/2018 PATRICIA NAVAS, WOLF Magana Ot Z12. 11 ENCOUNTER FOR SCREENING FOR MALIGNANT NE 10/25/2019 MARCIA NAVAS, MITESH Witt Ot K42.9 UMBILICAL HERNIA WITHOUT OBSTRUCTION OR 10/25/2019 MARCIA NAVAS, MITESH Witt Ot K43.2 INCISIONAL HERNIA WITHOUT OBSTRUCTION OR 10/25/2019 SOLIZ DO, IGOR Monreal Ot I05.1 RHEUMATIC MITRAL INSUFFICIENCY 10/25/2019 SOLIZ DO, IGOR Monreal Ot I10 ESSENTIAL (PRIMARY) HYPERTENSION 10/25/2019 SOLIZ DO, IGOR Monreal Ot R53.83 OTHER FATIGUE 10/30/2019 PATRICIA NAVAS, WOLF Magana Ot Z01.818 ENCOUNTER FOR OTHER PREPROCEDURAL EXAMIN 10/30/2019 PATRICIA NAVAS, WOLF Magana Ot Z01.818 ENCOUNTER FOR OTHER PREPROCEDURAL EXAMIN 10/30/2019 PATRICIA NAVAS, WOLF Magana Ot Z01.818 ENCOUNTER FOR OTHER PREPROCEDURAL EXAMIN 10/31/2019 MARCIA NAVAS, MITESH Witt Ot K42.9 UMBILICAL HERNIA WITHOUT OBSTRUCTION OR 10/31/2019 MARCIA NAVAS, MITESH Witt Ot K43.2 INCISIONAL HERNIA WITHOUT OBSTRUCTION OR 10/31/2019 SOLIZ DO, IGOR Monreal Ot I05.1 RHEUMATIC MITRAL INSUFFICIENCY 10/31/2019 SOLIZ DO, IGOR Monreal Ot I10 ESSENTIAL (PRIMARY) HYPERTENSION 10/31/2019 SOLIZ DO, IGOR Monreal Ot R53.83 OTHER FATIGUE Procedures Code Description Performed By Per formed On 37.22 LEFT HEART CARDIAC CATH 08/09/2013 88.53 LT H EART ANGIOCARDIOGRAM 08/09/2013 88.56 BRITTANY VERONIQUE ARTERIOGR-2 CATH 08/09/2013 Results Test Result Range Complete blood count (CBC) with automate d white blood cell (WBC) differential - 04/13/16 02:26 Blood leukocytes automated count (number/volume) 10.4 10*3/uL 4.3-11.0 Blood erythrocytes automated count (number/volume) 4.89 10*6/uL 4.35-5.85 Venous blood hemoglobin measurement (mass/volume) 15.4 g/dL 13.3-17.7 Blood hematocrit (volume fraction) 46 % 40-54 Automated erythrocyte mean corpuscular volume 94 [ foz_us] 80-99 Automated erythrocyte mean corpuscular h emoglobin (mass per erythrocyte) 32 pg 25-34 Automated erythrocyte mean corpuscular h emoglobin concentration measurement (mass/volume) 34 g/dL 32-36 Automated erythrocyte distribution width ratio 12. 6 % 10.0- 14.5 Automated blood platelet count (count/volume) 301 10*3/uL [...] 10*3 1.0-4.0 Blood monocytes automated count (number/volume) 0. 9 10*3 0.0-1.0 Automated eosinophil count 0.2 10*3/uL 0 .0-0.3 Automated blood basophil count (count/volume) 0.1 10*3/uL 0.0-0.1 Comprehensive metabolic panel - 04/13/16 02:26 Serum or plasma sodium measurement (moles/volume) 139 mmol/L 135-145 Serum or plasma potassium measurement (moles/volume) 4.7 mmol/L 3.6-5.0 Serum or plasma chloride measurement (moles/volume) 105 mmol/L 98-107 Carbon dioxide 26 mmol/L 21-32 Serum or plasma anion gap determination (moles/volume) 8 mmol/L 5-14 Serum or plasma urea nitrogen measurement (mass/volume ) 16 mg/dL 7-18 Serum or plasma creatinine measurement (mass/volume) 0.81 mg/dL 0.60-1.30 Serum or plasma urea nitrogen/creatinine mass ratio 20 NRG Serum or plasma creatinine measurement w ith calculation of estimated glomerular filtration rate > NRG Serum or plasma glucose measurement (mass/volume) 129 mg/dL 70-105 Serum or plasma calcium measurement (mass/volume) 9.3 mg/dL 8.5-10.1 Serum or plasma total bilirubin measurement (mass/volu me) 0.3 mg/dL 0.1-1.0 Serum or plasma alkaline phosphatase marsha surement (enzymatic activity/volume) 103 U/L 40-136 Serum or plasma aspartate aminotransfera se measurement (enzymatic activity/volume) 17 U/L 5-34 Serum or plasma alanine aminotransferase measurement (enzymatic activity/volume) 30 U/L 0-55 Serum or plasma protein measurement (mass/volume) 6.3 g/dL 6.4-8.2 Serum or plasma albumin measurement (mass/volume) 4.2 g/dL 3.2-4.5 Lipase - 04/13/16 02:26 Lipase 18 U/L 8-78 Complete urinalysis with reflex to cultu re - 04/13/16 03:20 Urine color determination YELLOW NRG Urine clarity determination CLEAR NR G Urine pH measurement by test strip 5 5-9 Specific gravity of urine by test strip 1.025 1.016-1.022 Urine protein assay by test strip, semi-quantitative NEGATIVE NEGATIVE Urine glucose detection by automated test strip NE GATIVE NEGATIVE Erythrocytes detection in urine sediment by light micr oscopy 1+ NEGATIVE Urine ketones detection by automated test strip NE GATIVE NEGATIVE Urine nitrite detection by test strip NEGATIVE NEGATIVE Urine total bilirubin detection by test strip NEGA TIVE NEGATIVE Urine urobilinogen measurement by automated test strip (mass/volume) NORMAL NORMAL Urine leukocyte esterase detection by dipstick NEG ATIVE NEGATIVE Automated urine sediment erythrocyte cou nt by microscopy (number/high power field) [HPF] NRG Automated urine sediment leukocyte count by microscopy (number/high power field) NONE NRG Bacteria detection in urine sediment by light microsco py NEGATIVE NRG Squamous epithelial cells detection in u rine sediment by light microscopy 2-5 NRG Crystals detection in urine sediment by light microsco py PRESENT NRG Casts detection in urine sediment by light microscopy NONE NRG Mucus detection in urine sediment by light microscopy NEGATIVE NRG Complete urinalysis with reflex to culture NO NRG Calcium oxalate crystals detection in ur ine sediment by light microscopy LARGE NRG Complete blood count (CBC) with automate d white blood cell (WBC) differential - 11/30/16 10:02 Blood leukocytes automated count (number/volume) 7.5 10*3/uL 4.3-11.0 Blood erythrocytes automated count (number/volume) 4.92 10*6/uL 4.35-5.85 Venous blood hemoglobin measurement (mass/volume) 15.0 g/dL 13.3-17.7 Blood hematocrit (volume fraction) 45 % 40-54 Automated erythrocyte mean corpuscular volume 92 [ foz_us] 80-99 Automated erythrocyte mean corpuscular h emoglobin (mass per erythrocyte) 31 pg 25-34 Automated erythrocyte mean corpuscular h emoglobin concentration measurement (mass/volume) 33 g/dL 32-36 Automated erythrocyte distribution width ratio 12. 4 % 10.0- 14.5 Automated blood platelet count (count/volume) 275 10*3/uL [...] 10*3 1.0-4.0 Blood monocytes automated count (number/volume) 0. 7 10*3 0.0-1.0 Automated eosinophil count 0.2 10*3/uL 0 .0-0.3 Automated blood basophil count (count/volume) 0.1 10*3/uL 0.0-0.1 Comprehensive metabolic panel - 11/30/16 10:02 Serum or plasma sodium measurement (moles/volume) 139 mmol/L 135-145 Serum or plasma potassium measurement (moles/volume) 4.2 mmol/L 3.6-5.0 Serum or plasma chloride measurement (moles/volume) 106 mmol/L 98-107 Carbon dioxide 26 mmol/L 21-32 Serum or plasma anion gap determination (moles/volume) 7 mmol/L 5-14 Serum or plasma urea nitrogen measurement (mass/volume ) 11 mg/dL 7-18 Serum or plasma creatinine measurement (mass/volume) 0.83 mg/dL 0.60-1.30 Serum or plasma urea nitrogen/creatinine mass ratio 13 NRG Serum or plasma creatinine measurement w ith calculation of estimated glomerular filtration rate > NRG Serum or plasma glucose measurement (mass/volume) 101 mg/dL 70-105 Serum or plasma calcium measurement (mass/volume) 9.2 mg/dL 8.5-10.1 Serum or plasma total bilirubin measurement (mass/volu me) 0.8 mg/dL 0.1-1.0 Serum or plasma alkaline phosphatase marsha surement (enzymatic activity/volume) 90 U/L 40-136 Serum or plasma aspartate aminotransfera se measurement (enzymatic activity/volume) 18 U/L 5-34 Serum or plasma alanine aminotransferase measurement (enzymatic activity/volume) 33 U/L 0-55 Serum or plasma protein measurement (mass/volume) 6.3 g/dL 6.4-8.2 Serum or plasma albumin measurement (mass/volume) 4.0 g/dL 3.2-4.5 Methicillin resistant Staphylococcus aur eus (MRSA) screening culture - 11/30/16 10:02 Methicillin resistant Staphylococcus aureus (MRSA) scr eening culture NEG NRG Automated blood complete blood count (he mogram) panel - 10/20/17 07:15 Blood leukocytes automated count (number/volume) 9.1 10*3/uL 4.3-11.0 Blood erythrocytes automated count (number/volume) 4.96 10*6/uL 4.35-5.85 Venous blood hemoglobin measurement (mass/volume) 15.8 g/dL 13.3-17.7 Blood hematocrit (volume fraction) 46 % 40-54 Automated erythrocyte mean corpuscular volume 92 [ foz_us] 80-99 Automated erythrocyte mean corpuscular h emoglobin (mass per erythrocyte) 32 pg 25-34 Automated erythrocyte mean corpuscular h emoglobin concentration measurement (mass/volume) 35 g/dL 32-36 Automated erythrocyte distribution width ratio 12. 6 % 10.0- 14.5 Automated blood platelet count (count/volume) 295 10*3/uL 130-400 Automated blood platelet mean volume measurement 10.1 [foz_us] 7.4-10.4 Complete urinalysis with reflex to cultu re - 10/20/17 07:15 Urine color determination YELLOW NRG Urine clarity determination CLEAR NR G Urine pH measurement by test strip 5 5-9 Specific gravity of urine by test strip 1.025 1.016-1.022 Urine protein assay by test strip, semi-quantitative NEGATIVE NEGATIVE Urine glucose detection by automated test strip NE GATIVE NEGATIVE Erythrocytes detection in urine sediment by light micr oscopy NEGATIVE NEGATIVE Urine ketones detection by automated test strip NE GATIVE NEGATIVE Urine nitrite detection by test strip NEGATIVE NEGATIVE Urine total bilirubin detection by test strip NEGA TIVE NEGATIVE Urine urobilinogen measurement by automated test strip (mass/volume) NORMAL NORMAL Urine leukocyte esterase detection by dipstick NEG ATIVE NEGATIVE Automated urine sediment erythrocyte cou nt by microscopy (number/high power field) NONE NRG Automated urine sediment leukocyte count by microscopy (number/high power field) NONE NRG Bacteria detection in urine sediment by light microsco py NEGATIVE NRG Crystals detection in urine sediment by light microsco py NONE NRG Casts detection in urine sediment by light microscopy NONE NRG Mucus detection in urine sediment by light microscopy MODERATE NRG Complete urinalysis with reflex to culture NO NRG PT panel in platelet poor plasma by coag ulation assay - 10/20/17 07:15 Prothrombin time (PT) in platelet poor plasma by coagu lation assay 12.9 s 12.2-14.7 INR in platelet poor plasma or blood by coagulation as say 1.0 0.8-1.4 Activated partial thromboplastin time (a PTT) in platelet poor plasma bycoagulation assay - 10/20/17 07:15 Activated partial thromboplastin time (a PTT) in platelet poor plasma bycoagulation assay 32 s 24-35 Comprehensive metabolic panel - 10/20/17 07:15 Serum or plasma sodium measurement (moles/volume) 141 mmol/L 135-145 Serum or plasma potassium measurement (moles/volume) 4.0 mmol/L 3.6-5.0 Serum or plasma chloride measurement (moles/volume) 106 mmol/L 98-107 Carbon dioxide 27 mmol/L 21-32 Serum or plasma anion gap determination (moles/volume) 8 mmol/L 5-14 Serum or plasma urea nitrogen measurement (mass/volume ) 12 mg/dL 7-18 Serum or plasma creatinine measurement (mass/volume) 0.76 mg/dL 0.60-1.30 Serum or plasma urea nitrogen/creatinine mass ratio 16 NRG Serum or plasma creatinine measurement w ith calculation of estimated glomerular filtration rate > NRG Serum or plasma glucose measurement (mass/volume) 106 mg/dL 70-105 Serum or plasma calcium measurement (mass/volume) 9.6 mg/dL 8.5-10.1 Serum or plasma total bilirubin measurement (mass/volu me) 1.0 mg/dL 0.1-1.0 Serum or plasma alkaline phosphatase marsha surement (enzymatic activity/volume) 86 U/L 40-136 Serum or plasma aspartate aminotransfera se measurement (enzymatic activity/volume) 18 U/L 5-34 Serum or plasma alanine aminotransferase measurement (enzymatic activity/volume) 25 U/L 0-55 Serum or plasma protein measurement (mass/volume) 7.0 g/dL 6.4-8.2 Serum or plasma albumin measurement (mass/volume) 4.4 g/dL 3.2-4.5 Lipid 1996 panel - 10/20/17 07:15 Serum or plasma triglyceride measurement (mass/volume) 89 mg/dL <150 Serum or plasma cholesterol measurement (mass/volume) 157 mg/dL < 200 Serum or plasma cholesterol in HDL measurement (mass/v olume) 38 mg/dL 40-60 Cholesterol in LDL [mass/volume] in serum or plasma by direct assay 110 mg/dL 1-129 Serum or plasma cholesterol in VLDL measurement (mass/ volume) 18 mg/dL 5-40 Methicillin resistant Staphylococcus aur eus (MRSA) screening culture - 10/20/17 07:15 Methicillin resistant Staphylococcus aureus (MRSA) scr eening culture NEG NRG Coronavirus SARS-CoV-2 SO 2019 - 0 13:13 Coronavirus Ab [Units/volume] in Serum Negative Negative Encounters ACCT No. Visit Date/Time Discharge Status Pt. Type Provider Facility Loc./Unit Complaint [id number] 04/26/2014 15:14:34 04/26/2014 23:59: 59 CLS Outpatient Elizabeth Pimentel [id number] 10/30/2019 08:58:00 020 16:12:00 DIS Outpatient PATRICIA NAVAS, WOLF Magana [facility] PREOP COLONOSCOPY [id number] 10/20/2017 06:53:00 018 13:20:00 DIS Outpatient KAN HAINES MD [facility] CATH ABN STRESS TEST,DYSPNEA ,FATIGUE [id number] 10/08/2017 06:42:00 018 23:59:59 CLS Outpatient IGOR SOLIZ DO [facility] CARD FATIGUE [id number] 12/03/2016 10:13:00 017 16:45:00 DIS Outpatient MITESH KENNEDY MD [facility] STONES, RECURRENT IRRE DUCIBLE VENTRAL HERNIA [id number] 11/30/2016 09:41:00 017 10:07:00 DIS Outpatient MITESH KENNEDY MD [facility] PREOP RECURRENT VENTRAL HER MILO [id number] 11/27/2016 06:49:00 017 23:59:59 CLS Outpatient MITESH KENNEDY MD [facility] RAD INCARCERATED RECURRENT VENTRAL HERNIA [id number] 04/13/2016 02:11:00 016 05:50:00 DIS Emergency JEANNINE NAVAS, NICOLE Caballero [facility] ER AB PAIN [id number] 05/03/2015 07:21:00 015 10:35:00 DIS Outpatient WOLF GOMEZ MD [facility] SCREENING [id number] 05/01/2015 05:42:00 015 23:59:59 CLS Outpatient WOLF GOMEZ MD [facility] PREOP SCREENING COLONSCOPY [id number] 05/22/2014 11:23:00 014 23:59:59 CLS Outpatient IGOR SOLIZ DO [facility] RAD PULMONARY NODUL E [id number] 11/21/2013 13:19:00 014 23:59:59 CLS Outpatient IGOR SOLIZ DO [facility] RAD MALIGNANT MELAN CASSY [id number] 08/09/2013 11:57:00 014 18:52:00 DIS Outpatient IGOR SOLIZ DO [facility] CATH CP/HEART CATH [id number] 01/20/2013 11:11:00 013 23:59:59 CLS Outpatient BERTIN CARTAGENA MD [facility] RAD CHEST MASS, GOI TER [id number] 12/13/2012 06:51:00 013 23:59:59 CLS Outpatient MITESH KENNEDY MD [facility] RAD RIGHT THYROID NODULE [id number] 11/25/2012 15:03:00 013 23:59:59 CLS Outpatient KHOA SOLIZ [facility] RAD THYROIDMEGALY [id number] 11/16/2012 09:29:00 013 23:59:59 CLS Outpatient MITESH KENNEDY MD [facility] RAD MELANOMA [id number] 11/09/2012 12:56:00 23:59:59 CLS Outpatient MITESH KENNEDY MD [facility] PREOP MELANOMA [id number] 11/03/2019 08:30:00 P EN Preadteresa GOMEZ MD, WOLF Magana [facility] ENDO COLON POLYPS [id number] 05/22/2014 11:29:00 Document Registration [id number] 05/03/2012 07:50:00 Document Registration [id number] 04/27/2012 07:54:00 Document Registration [id number] 11/03/2011 20:05:00 Document Registration [id number] 09/08/2011 19:56:00 Document Registration [id number] 10/31/2010 07:50:00 Document Registration
--- NOTE | 2019-11-03 18:19 | OPERATIVE REPORT ---
DATE OF SERVICE: COLONOSCOPY SUMMARY INDICATION FOR THE PROCEDURE: Surveillance colonoscopy due to history of colon polyps and a first degree relative with colon cancer. Index case being his sister diagnosed in her late 40s. Prior to undergoing colonoscopy, digital and rectal evaluation was performed. Anal sphincter tone was normal and the perianal was intact. Prostate was mild to moderately enlarged, anodular and nontender to digital inspection. No other abnormalities noted on additional inspection of anal canal or distal rectal vault. The colonoscope was then inserted into the rectum and under direct visualization advanced to cecum. The cecum was identified by identification of the ileocecal valve and cecal strap. Photographic documentation was obtained. Careful inspection was made as colonoscope withdrawn. Quality of prep was good. The patient tolerated the procedure well. FINDINGS: There was no evidence for internal or external hemorrhoids. The rectum was unremarkable. Moderate number of small to medium size sigmoid diverticulum were present without evidence for diverticulitis. No other sigmoid colonic abnormalities were noted. Present in the proximal descending colon was a 6 mm sessile adenomatous appearing polyp due to diverticular disease involved the descending colon as well. I could only get into position to biopsy the base and cauterized with visual appearance of the polyp had being ischemic. It was not ulcerated. A photograph was obtained prior. There was no significant blood loss. There was a small adjacent polyp that was biopsied and ablated as well. There was a diminutive 3 mm adjacent the polyp was biopsied and ablated as well. The splenic flexure and transverse colon were unremarkable. A diminutive polyp was noted in the mid ascending colon, which was biopsied and ablated and submitted for histopathology. The cecum was unremarkable. ASSESSMENT: Three polyps were removed today, the largest at 6mm in the sigmoid colon, adenomatous in appearance, in a difficult location and I was unable to biopsy any of the polyp tissue, but could grasp the base and performed cauterization. This was secondary to moderate diverticular disease involving the sigmoid and descending colon without evidence for diverticulitis. Considering this patient's family history, we will likely be advocating repeat surveillance colonoscopy in one year. Digital rectal evaluation of the prostate was compatible with mild to moderate BPH without evidence for prostate nodularity. I thank you for the referral of this pleasant gentleman. Job ID: [id number] DocumentID: [id number] Dictated Date: 11/03/2019 12:15:55 Acquisition Advisor Date: 11/03/2019 18:18:11 Dictated By: WOLF GOMEZ MD MTDD
== END 2019-11-03 09:55 | disposition home or self-care (01) ==
LOC: ENDO 07:21
PROVIDERS: ATTEND Internal Medicine
DX: Z12.11 Encounter for screening for malignant neoplasm of colon (principal); D12.2 Benign neoplasm of ascending colon; K63.5 Polyp of colon; K57.30 Diverticulosis of large intestine without perforation or abscess without bleeding; N40.0 Benign prostatic hyperplasia without lower urinary tract symptoms; Z86.010 Personal history of colon polyps; Z80.0 Family history of malignant neoplasm of digestive organs

== ENCOUNTER 2019-12-31 10:56 | Emergency (ER) | payer MEDICARE, OTHER ==
[~2019-12-31] VITALS: Ht 185.5 cm; Wt 110.0 kg
[~2019-12-31 10:56] MED LIST changes: +MULT-567 PO; -MULT1TAB69 PO
--- OUTSIDE RECORDS SUMMARY | 2019-12-31 10:59 | XMS REPORT ---
Author Author [employer] [facility] [employer] [facility] [employer] Address [address] [place] [address] Care Team Providers Care Mule Spinner Name Role Phone IGOR SOLIZ Unavailable MARCIA NAVAS, MITESH Witt Unavailable Unavailable JEANNINE NAVAS, NICOLE Caballero Unavailable Unavailable ZAKI NAVAS, KNA Monreal Unavailable Unavailable MARCIA NAVAS, MITESH Witt Unavailable Unavailable IGOR SOLIZ DO Unavailable Unavailable JEANNINE NAVAS, NICOLE Caballero Unavailable Unavailable PATRICIA NAVAS, WOLF Magana Unavailable Unavailable Unavailable Unavailable Unavailable Unavailable Unavailable Unavailable Allergies The data below is from unstructured sourcesNo known allergies.No known allergies.No known allergies.No known allergies.No known allergies.No known allergies.No known allergies. Encounters Encounter Date Encounter Type Encounter Diagnosis Care Provider Facility Start: Patient encounter WOLF GOMEZ MD [facility] 11-03-2019 [facility] End: 11-03-2019 Start: Patient encounter WOLF GOMEZ MD [facility] 10-30-2019 [facility] End: 10-30-2019 Start: Patient encounter WOLF GOMEZ MD [facility] 10-27-2019 [facility] Start: Patient encounter WOLF GOMEZ MD [facility] 10-27-2019 [facility] Start: Patient encounter 10-20-2017 procedure End: 10-20-2017 Start: Patient encounter KAN HAINES MD [facility] Via 10-20-2017 [facility] End: 10-20-2017 Start: Patient encounter IGOR SOLIZ DO [facility] 10-08-2017 [facility] Start: Patient encounter MITESH harvey ([id number]) 12-03-2016 procedure End: 12-03-2016 Start: Patient encounter MITESH KENNEDY MD [facility] 12-03-2016 procedure [facility] End: 12-03-2016 Start: Patient encounter MITESH KENNEDY MD [facility] 11-30-2016 procedure [facility] [address] End: 11-30-2016 Start: Patient encounter MITESH KENNEDY MD [facility] 11-27-2016 procedure [facility] [address] Start: Emergency department NICOLE PAEZ MD N ot Available ([id number]) 04-13-2016 patient visit End: 04-13-2016 Start: Emergency department NICOLE PAEZ [facility] 04-12-2016 patient visit [facility] End: 04-13-2016 Start: Patient encounter WOLF GOMEZ MD Not Availa ble ([id number]) 05-03-2015 procedure End: 05-03-2015 Start: Patient encounter IGOR JACOBSENLIVAN DO Not Av ailable ([id number]) 05-22-2014 procedure Start: Patient encounter IGOR SOLIZ DO Not Av ailable ([id number]) 11-21-2013 procedure Start: Patient encounter IGOR SOLIZ DO Not Av ailable ([id number]) 08-09-2013 procedure End: 08-09-2013 Start: Patient encounter BERTIN CARTAGENA MD Not Av ailable ([id number]) 01-20-2013 procedure Start: Patient encounter MITESH KENNEDY MD Not Avai lable ([id number]) 12-13-2012 procedure Start: Patient encounter KHOA SOLIZ Not Avai lable ([id number]) 11-25-2012 procedure Start: Patient encounter MITESH KENNEDY MD Not Avai lable ([id number]) 11-16-2012 procedure Start: Patient encounter MITESH KENNEDY MD Not Avai lable ([id number]) 11-09-2012 procedure Start: Patient encounter WOLF GOMEZ MD Not Availa ble ([id number]) 05-03-2012 procedure End: 05-03-2012 Start: Patient encounter WOLF GOMEZ MD Not Availa ble ([id number]) 04-27-2012 procedure Start: Patient encounter LAURI BECK Not Availab le ([id number]) 11-03-2011 procedure End: 11-04-2011 Start: Patient encounter IGOR SOLIZ DO Not Av ailable ([id number]) 09-08-2011 procedure End: 09-09-2011 ENCOUNTER FOR OTHER Encounter for other WOLF GOMEZ MD Not Available ([id number]) PREPROCEDURAL EXAMIN preprocedural examination ENCOUNTER FOR Encounter for MITESH KENNEDY MD [facility] PREPROCEDURAL preprocedural [facility] LABORATORY E laboratory ([id number]) examination [id number] Pre-operative MITESH KENNEDY MD Not Stephanie harvey ([id number]) CARDIOVASCULAR cardiovascular examination Pre-operative WOLF GOMEZ MD Not Available (0000 0) examination, unspecified Medical Equipment No Information Goals No Information Immunizations No Information Interventions No Information Medications No Information Payers No Information Plan of Treatment No Information Problems Active Problems Problem Problem Date Last Documented Episodic/Chr Provider Classificati Recorded Date onic on Abdominal Incisional hernia with obstruction, 10-25-2019 Epi sodic MITESH hernia without gangrene ; Translations: KATIE BARROSO MD [Incisional hernia without (35 obstruction or gangrene] sources) 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-25-2019 Chroni c NICOLE atherosclero [place] coronary artery without BRUE GGEMANN sis and angina pectoris ; Translations: other heart [Coronary atherosclerosis o f [place] disease coronary artery] (25 sources) Disorders of Hyperlipidemia, unspecified 10-25-2019 Chronic BASHAR ZAKI lipid metabolism (5 sources) Diverticulos Diverticulosis of intestine, part 11-08-2019 Chaplain Resident darya WOLF GOMEZ is and unspecified, without perforation or MD diverticulit abscess without bleeding ; is Translations: [Diverticulos is of (7 sources) colon (without mention of hemorrhage)] Essential Essential (primary) hypertension 10-25-2019 Chroni c IGOR hypertension SOLIZ DO (7 sources) Heart valve Rheumatic mitral insufficiency 10-25-2019 Chronic IGOR disorders SOLIZ DO (7 sources) Hyperplasia Benign prostatic hyperplasia 11-08-2019 Chronic WOLF GOMEZ of prostate without lower urinary tract (6 sources) symptoms Immunization Encounter for screening for other 10-25-2019 Epis odic MITESH s and bacterial diseases ; Translations: MARCIA NAVAS screening [Screening examination for other for specified bacterial and spi rochetal infectious diseases] disease (21 sources) Malaise and Other fatigue 10-25-2019 Episodic IGOR fatigue SOLIZ DO (7 sources) Melanomas of Melanoma of skin, site unspecified Chronic MITESH skin ; Translations: [Malignant melanoma MARCIA NAVAS (8 sources) of skin of other and unspec ified parts of face] Nonspecific Other chest pain ; Translations: 10-25-2019 Episod ic IGOR chest pain [Other chest pain] MARTÍNEZ RICHMOND (8 sources) Occlusion or Occlusion and stenosis of bilateral 10-25-2019 Ch ronic KAN HAINES stenosis of carotid arteries precerebral arteries (5 sources) Other and Benign neoplasm of ascending colon 11-08-2019 Epis odic WOLF PATRICIA unspecified MD benign neoplasm (3 sources) Other and Personal history of colonic polyps 11-08-2019 Epis odic WOLF PATRICIA unspecified MD benign neoplasm (3 sources) Other and Polyp of colon 11-08-2019 Episodic WOLF TOBIO N unspecified MD benign neoplasm (3 sources) Other liver Hepatomegaly, not elsewhere 10-25-2019 Episodic NICOLE diseases classified BRURALPHMANN (10 sources) MD Other lower Other nonspecific abnormal finding Episodic IGOR respiratory of lung field SOLIZ DO disease (2 sources) Other Carpal tunnel syndrome, unspecified 10-25-2019 Chr onic KAN HAINES nervous upper limb MD system disorders (5 sources) Other Encounter for screening for 11-08-2019 Episodic WOLF GOMEZ screening malignant neoplasm of colon MD for suspected conditions (not mental disorders or infectious disease) (8 sources) Residual Obstructive sleep apnea (adult) 10-25-2019 Chronic MITESH codes; (pediatric) MARCIA NAVAS unclassified (19 sources) Residual Obstructive sleep apnea Chronic WILL JORGE codes; (adult)(pediatric) MARTÍNEZ RICHMOND unclassified (2 sources) Residual Family history of ischemic heart 10-25-2019 Episod ic BASHAR ZAKI codes; disease and other diseases of the M D unclassified circulatory system (5 sources) Residual Family history of malignant 11-08-2019 Episodic WOLF GOMEZ codes; neoplasm of digestive organs unclassified (6 sources) Screening Personal history of nicotine 10-25-2019 Episodic BASHAR ZAKI and history dependence MD of mental health and substance abuse codes (5 sources) Substance-re Nicotine dependence, chewing 10-25-2019 Chronic IGOR lated tobacco, uncomplicated ; MARTÍNEZ D O disorders Translations: [Tobacco use (22 sources) disorder] Thyroid Goiter, unspecified ; Translations: Chronic KHOA disorders [Nontoxic uninodular goiter] BONNY AN (9 sources) Past or Other Problems Problem Problem Date Last Documented Episodic/Chr Provider Classificati Recorded Date onic on Other Follow-up examination, following Episodic WOLF PATRICIA aftercare other surgery MD (1 source) Other and Benign neoplasm of skin of trunk, Episodic MITESH unspecified except scrotum MARCIA NAVAS benign neoplasm (6 sources) Other and Benign neoplasm of cecum Episodic SRIKANTH valdezified benign neoplasm (3 sources) Other and Personal history of colonic polyps Episodic WOLF GOMEZ unspecified benign neoplasm (1 source) Other lower Solitary pulmonary nodule Episodic [place] LLIAM respiratory SOLIZ DO disease (3 sources) Other skin Swelling, mass, or lump in chest Episodic BERTIN disorders MITZI NAVAS (3 sources) Residual Family history of ischemic heart Episodic IGOR codes; disease SOLIZ DO unclassified (3 sources) Residual Family history of malignant Episodic WOLF GOMEZ codes; neoplasm of gastrointestinal tract unclassified (1 source) Spondylosis; Cervicalgia Episodic IGOR intervertebr MARTÍNEZ RICHMOND al disc disorders; other back problems (3 sources) Procedures Date Procedure Procedure Detail Performing Cl inician Left heart cardiac IGOR SOLIZ DO catheterization Results Test Name Value Interpreta Reference Facilit Date tion Range y Time laboratory on 2019-10-30 Coronavirus Ab Qn Negative Invalid Negative PENDING 10-29 (S) Interpreta LOCATIO 020 tion Code N [facility] 09:13-0 ([id number]) 400 Social History No Information Vital Signs The data below is from unstructured sources Vital Response Date/Time Temperature (Fahrenheit) 97.8 degree s F (97.6 - 99.5) 05/03/2015 11:06am Temperature (Calculated Celsius) 36. 55554 degrees C (36.4 - 37.5) 05/03/2015 11:06am [...] inches 05/03/2015 7:30am Height (Calculated Centimeters) 185. 152029 cm 05/03/2015 7:30am Weight (Pounds) 240 pounds 05/03/2015 7:30am Weight (Calculated Grams) 020692.170 gm 05/03/2015 7:30am Weight (Calculated Kilograms) 108.86 [...] inches 11/30/2016 9:56am Height (Calculated Centimeters) 185. 671701 cm 11/30/2016 9:56am Weight (Pounds) 237 pounds 11/30/2016 9:56am Weight (Ounces) 5.0 oz 0 11/30/2016 9:56am Weight (Calculated Grams) 500498.14 gm 11/30/2016 9:56am Weight (Calculated Kilograms) 107.64 3140 kilograms 11/30/2016 9:56am Calculated BMI 31.3 11/19 9:56am Vital Response Date/Time Temperature (Fahrenheit) 98.3 degree s F (97.6 - 99.5) 12/03/2016 4:40pm Temperature (Calculated Celsius) 36. 95433 degrees C (36.4 - 37.5) 12/03/2016 4:30pm [...] inches 12/03/2016 11:05am Height (Calculated Centimeters) 185. 234995 cm 12/03/2016 11:05am Weight (Pounds) 237 pounds 12/03/2016 11:05am Weight (Ounces) 5.0 oz 0 12/03/2016 11:05am Weight (Calculated Grams) 691295.14 gm 12/03/2016 11:05am Weight (Calculated Kilograms) 107.64 3140 kilograms 12/03/2016 11:05am Calculated BMI 31.3 11/19 11:05am Vital Response Date/Time Temperature (Fahrenheit) 98.7 degree s F (97.6 - 99.5) 10/20/2017 1:20pm Temperature (Calculated Celsius) 37. 71408 degrees C (36.4 - 37.5) 10/20/2017 1:00pm [...] inches 10/20/2017 6:56am Height (Calculated Centimeters) 185. 969595 cm 10/20/2017 6:56am Weight (Pounds) 237 pounds 10/20/2017 6:56am Weight (Ounces) 5.0 oz 0 10/20/2017 6:56am Weight (Calculated Grams) 033745.14 gm 10/20/2017 6:56am Weight (Calculated Kilograms) 107.64 3140 kilograms 10/20/2017 6:56am Calculated BMI 31.3 07/2017 6:56am Vital Response Date/Time Temperature (Fahrenheit) 98.7 degree s F (97.6 - 99.5) 10/20/2017 1:20pm Temperature (Calculated Celsius) 37. 55301 degrees C (36.4 - 37.5) 10/20/2017 1:00pm [...] inches 10/20/2017 6:56am Height (Calculated Centimeters) 185. 144334 cm 10/20/2017 6:56am Weight (Pounds) 237 pounds 10/20/2017 6:56am Weight (Ounces) 5.0 oz 0 10/20/2017 6:56am Weight (Calculated Grams) 114621.14 gm 10/20/2017 6:56am Weight (Calculated Kilograms) 107.64 3140 kilograms 10/20/2017 6:56am Calculated BMI 31.3 07/2017 6:56am Functional Status The data below is from unstructured sourcesNo functional status results.No functional status information available.No functional status information available.No functional status information available.No functional status information available.No functional status information available.No functional status information available. Mental Status No Information Advance Directives Directive Response Recor ded Date/Time Advance Directives No 7:30am Health Care Power of Or Director No 05/03/15 7:30am Organ Donor Yes 05/03/15 7:30am Resuscitation Status Full Code 05/03/15 7:30am Directive Response Recor ded Date/Time Advance Directives No 9:49am Health Care Power of Or Director No 11/30/16 9:49am Organ Donor Yes 11/30/16 9:49am Resuscitation Status Full Code 11/30/16 9:49am Directive Response Recor ded Date/Time Advance Directives No 11:01am Health Care Power of Or Director No 12/03/16 11:01am Organ Donor Yes 12/03/16 11:01am Resuscitation Status Full Code 12/03/16 11:01am Directive Response Recor ded Date/Time Advance Directives No 6:56am Health Care Power of Or Director No 10/20/17 6:56am Organ Donor Yes 10/20/17 6:56am Resuscitation Status Full Code 10/20/17 6:56am Discharge Instructions No hospital discharge instructions.No hospital discharge instruction information available.No hospital discharge instruction information available. Additional Source Comments This clinical document has been generated using for; to (do) software that has been certified by the Office of the National Coordinator for Health Information Technology (ONC 15.99.04.3023.Diam.31.00.0.876623) and the National Committee for Marketing Analytics Manager (NCQA, as an eMeasure certified technology). FOR [...] BASED ON T HE PRIMARY CLINICAL RECORDS. [employer] provides no warranty or guara ntee of the accuracy or completeness of information in this document.The followi ng information is based on time limited clinical information
--- OUTSIDE RECORDS SUMMARY | 2019-12-31 11:00 | XMS REPORT | Continuity of Care Document ---
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 Ot 240.9 05/22/2014 MARCIA NAVAS, MITESH Witt [...] MITESH Witt Ot 216.5 05/22/2014 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 Ot 240.9 05/22/2014 MITESH KENNEDY MD Ot [...] 04/13/2016 MARCIA NAVAS, MITESH Witt Ot V72.81 [id number] CARDIOVASCULAR 04/13/2016 MARCIA NAVAS, MITESH Witt Ot V74.8 SCREEN-BACTERIAL DIS NEC 04/13/2016 MARCIA NAVAS, MITESH Witt Ot 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 04/13/2016 MARCIA NAVAS, MITESH Witt Ot 216.5 BENIGN SHELLY SKIN TRUNK 04/13/2016 KHOA SOLIZ L 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 Ot 240.9 GOITER NOS 04/13/2016 MARCIA NAVAS, [...] Caballero Ot I25.10 ATHSCL HEART DISEASE OF [place] CORONARY 04/13/2016 JEANNINE NAVAS, NICOLE T Ot K80.20 CALCULUS OF GALLBLADDER W/O CHOLECYSTITI 04/13/2016 NICOLE PAEZ MD T Ot R10.11 RIGHT UPPER QUADRANT PAIN 04/13/2016 NICOLE PAEZ MD T Ot R11.0 NAUSEA 04/13/2016 NICOLE PAEZ MD Ot R16.0 HEPATOMEGALY, NOT ELSEWHERE CLASSIFIED 04/15/2016 NICOLE PAEZ MD Ot I25.10 ATHSCL HEART DISEASE OF [place] CORONARY 04/15/2016 NICOLE PAEZ MD Ot K80.20 CALCULUS OF GALLBLADDER W/O CHOLECYSTITI 04/15/2016 NICOLE PAEZ MD Ot R10.11 RIGHT UPPER QUADRANT PAIN 04/15/2016 NICOLE PAEZ MD T Ot R11.0 NAUSEA 04/15/2016 NICOLE PAEZ MD Ot R16.0 HEPATOMEGALY, NOT ELSEWHERE CLASSIFIED 04/17/2016 NICOLE PAEZ MD Ot I25.10 ATHSCL HEART DISEASE OF [place] CORONARY 04/17/2016 NICOLE PAEZ MD Ot K80.20 [...] Witt Ot I25.10 ATHSCL HEART DISEASE OF [place] CORONARY 12/03/2016 MITESH KENNEDY MD Ot K43.0 INCISIONAL HERNIA WITH OBSTRUCTION, WITH 12/03/2016 MITESH KENNEDY MD Ot K80.10 CALCULUS OF GALLBLADDER W CHRONIC CHOLEC 12/08/2016 MITESH KENNEDY MD Ot F17.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 DEPENDENCE, CHEWING TOBACCO, UN 12/08/2016 MITESH KENNEDY MD Ot G47.33 OBSTRUCTIVE SLEEP APNEA (ADULT) (PEDIATR 12/08/2016 MARCIA NAVAS, MITESH Witt Ot I25.10 ATHSCL HEART DISEASE OF [place] CORONARY 12/08/2016 MITESH KENNEDY MD Ot K43.0 [...] SLEEP APNEA (ADULT) (PEDIATR 12/10/2016 MARCIA NAVAS, MITSEH Witt Ot I25.10 ATHSCL HEART DISEASE OF [place] CORONARY 12/10/2016 MITESH KENNEDY MD Ot K43.0 [...] MD Ot I25.10 ATHSCL HEART DISEASE OF [place] CORONARY 02/02/2017 MITESH KENNEDY MD Ot K43.0 [...] TRUNK 02/02/2017 MITESH KENNEDY MD Ot V72.81 [id number] CARDIOVASCULAR 02/02/2017 MITESH KENNEDY MD Ot V74.8 SCREEN-BACTERIAL DIS NEC 02/02/2017 MITESH KENNEDY MD Ot 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 10 ATHSCL HEART DISEASE OF [place] CORONARY 10/20/2017 KAN HAINES MD Ot I65. [...] Ot I25. 10 ATHSCL HEART DISEASE OF [place] CORONARY 10/21/2017 AKN HAINES MD Ot I65. 23 OCCLUSION AND STENOSIS OF [place] 10/21/2017 KAN HAINES MD Ot R07. 89 OTHER CHEST PAIN 10/21/2017 KAN HAINES MD Ot Z82. 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 Ot 240.9 GOITER NOS 04/14/2018 MARCIA NAVAS, [...] 04/14/2018 MARCIA NAVAS, MITESH Witt Ot V72.81 [id number] CARDIOVASCULAR 04/14/2018 MITESH KENNEDY MD Ot V74.8 SCREEN-BACTERIAL DIS NEC 04/14/2018 MITESH KENNEDY MD Ot 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 04/14/2018 MITESH KENNEDY MD Ot 216.5 BENIGN SHELLY SKIN TRUNK 04/14/2018 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 Ot 240.9 GOITER NOS 04/14/2018 MARCIA NAVAS, [...] K42.9 UMBILICAL HERNIA WITHOUT OBSTRUCTION OR 10/25/2019 MITESH KENNEDY MD Ot K43.2 INCISIONAL HERNIA WITHOUT OBSTRUCTION OR 10/25/2019 SOLIZ DO, IGOR J Ot 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 2 BENIGN NEOPLASM OF ASCENDING COLON 11/03/2019 WOLF GOMEZ MD Ot K57. 30 DVRTCLOS OF LG INT W/O PERFORATION OR AB 11/03/2019 WOLF GOMEZ MD Ot K63. 5 POLYP OF COLON 11/03/2019 WOLF GOMEZ MD Ot N40. 0 BENIGN PROSTATIC HYPERPLASIA WITHOUT LOW 11/03/2019 WOLF GOMEZ MD Ot Z12. 11 ENCOUNTER FOR SCREENING FOR MALIGNANT NE 11/03/2019 WOLF GOMEZ MD Ot Z80. 0 FAMILY HISTORY OF MALIGNANT NEOPLASM OF 11/03/2019 WOLF GOMEZ MD Ot Z86.010 PERSONAL HISTORY OF COLONIC POLYPS 11/08/2019 WOLF GOMEZ MD Ot D12. 2 BENIGN NEOPLASM OF ASCENDING COLON 11/08/2019 WOLF GOMEZ MD, Ot K57. 30 DVRTCLOS OF LG INT W/O PERFORATION OR AB 11/08/2019 WOLF GOMEZ MD, Ot K63. 5 POLYP OF COLON 11/08/2019 WOLF GOMEZ MD, Ot N40. 0 BENIGN PROSTATIC HYPERPLASIA WITHOUT LOW 11/08/2019 WOLF GOMEZ MD, Ot Z12. 11 ENCOUNTER FOR SCREENING FOR MALIGNANT NE 11/08/2019 WOLF GOMEZ MD, Ot Z80. 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 Visit Date/Time Discharge Status Pt. Type Provider Facility Loc./Unit Complaint [id number] 04/26/2014 15:14:34 04/26/2014 23:59: 59 CLS Outpatient Elizabeth Pimentel [id number] 11/03/2019 07:21:00 020 09:55:00 DIS Outpatient WOLF GOMEZ MD [facility] ENDO COLON POLYPS [id number] 10/30/2019 08:58:00 020 16:12:00 DIS Outpatient WOLF GOMEZ MD [facility] PREOP COLONOSCOPY [id number] 10/20/2017 06:53:00 018 13:20:00 DIS Outpatient KAN HAINES MD [facility] CATH ABN STRESS TEST,DYSPNEA ,FATIGUE [id number] 10/08/2017 06:42:00 018 23:59:59 CLS Outpatient IGOR SOLIZ DO [facility] CARD FATIGUE [id number] 12/03/2016 10:13:00 017 16:45:00 DIS Outpatient MITESH KENNEDY MD [facility] SDC STONES, RECURRENT IRRE DUCIBLE VENTRAL HERNIA [id number] 11/30/2016 09:41:00 017 10:07:00 DIS Outpatient MITESH KENNEDY MD [facility] PREOP RECURRENT VENTRAL HER MILO [id number] 11/27/2016 06:49:00 017 23:59:59 CLS Outpatient MITESH KENNEDY MD [facility] RAD INCARCERATED RECURRENT VENTRAL HERNIA [id number] 04/13/2016 02:11:00 016 05:50:00 DIS Emergency JEANNINE NAVAS, NICOLE Caballero [facility] ER AB PAIN [id number] 05/03/2015 07:21:00 015 10:35:00 DIS Outpatient WOLF GOMEZ MD [facility] SDC SCREENING [id number] 05/01/2015 05:42:00 015 23:59:59 CLS Outpatient WOLF GOMEZ MD [facility] PREOP SCREENING COLONSCOPY [id number] 05/22/2014 11:23:00 014 23:59:59 CLS Outpatient IGOR SOLIZ DO [facility] RAD PULMONARY NODUL E [id number] 11/21/2013 13:19:00 014 23:59:59 CLS Outpatient IGOR SOLIZ DO [facility] RAD MALIGNANT MELAN CASSY [id number] 08/09/2013 11:57:00 014 18:52:00 DIS Outpatient IGOR SOLIZ DO [facility] CATH CP/HEART CATH [id number] 01/20/2013 11:11:00 013 23:59:59 CLS Outpatient BERTIN CARTAGENA MD [facility] RAD CHEST MASS, GOI TER [id number] 12/13/2012 06:51:00 013 23:59:59 CLS Outpatient MITESH KENNEDY MD [facility] RAD RIGHT THYROID NODULE [id number] 11/25/2012 15:03:00 013 23:59:59 CLS Outpatient KHOA SOLIZ [facility] RAD THYROIDMEGALY [id number] 11/16/2012 09:29:00 23:59:59 CLS Outpatient MITESH KENNEDY MD [facility] RAD MELANOMA [id number] 11/09/2012 12:56:00 23:59:59 CLS Outpatient MITESH KENNEDY MD [facility] PREOP MELANOMA [id number] 05/22/2014 11:29:00 Document Registration [id number] 05/03/2012 07:50:00 Document Registration [id number] 04/27/2012 07:54:00 Document Registration [id number] 11/03/2011 20:05:00 Document Registration [id number] 09/08/2011 19:56:00 Document Registration [id number] 10/31/2010 07:50:00 Document Registration
[2019-12-31] MEDS ORDERED: KETOROLAC 30 MG/ML VIAL IVP STA (11:09)
[2019-12-31] MEDS ORDERED: LACTATED RINGERS 1,000 ML IV ONE (11:09)
--- NOTE | 2019-12-31 11:16 | ED Abdominal Pain ---
General Stated Complaint: L SIDE PAIN Source of Information: Patient History of Present Illness Date Seen by Provider: Dec 31, 2019 Time Seen by Provider: 11:08 Initial Comments PT ARRIVES VIA POV FROM HOME STATES HE WOKE UP WITH PAIN AT 0500--PAIN IS IN LEFT GROIN AND RADIATES TO LLQ AND INTO LEFT FLANK STATES PAIN LASTED 2 1/2 HOURS THIS MORNING, THEN WENT AWAY FOR AWHILE, AND THEN CAME BACK JUST PRIOR TO ARRIVAL, IS STARTING TO EASE AGAIN NOTHING WORSENS OR IMPROVES PAIN NO NAUSEA/VOMITING HAD A LITTLE DIARRHEA YESTERDAY-NO BLACK/BLOODY/TARRY STOOLS NO FEVER URINATING NORMALLY HAS NOT TAKEN ANYTHING FOR PAIN NO HISTORY OF SIMILAR HAS HAD DIVERTICULITIS, BUT IT DID NOT FEEL LIKE THIS 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 HAS BEEN OUT IN THE HEAT ALL WEEK--( IN THE 'S WITH HIGH HUMIDITY) Allergies and Home Medications Allergies Coded Allergies: No Known Drug Allergies (Verified , 10/27/19) Home Medications Cyclobenzaprine HCl 10 Mg Tablet, 10 MG PO Q8H PRN for SPASMS Prescribed by: STEFANY DENISE on 12/31/19 1255 Levothyroxine Sodium 25 Mcg Tablet, 25 MCG PO DAILY, (Reported) Meloxicam 15 Mg Tablet, 15 MG PO DAILY Prescribed by: STEFANY DENISE on 12/31/19 1255 Patient Home Medication List Home Medication List Reviewed: Yes Review of Systems Review of Systems Constitutional: no symptoms reported; No chills, No diaphoresis, No dizziness Respiratory: No Symptoms Reported Cardiovascular: No Symptoms Reported Gastrointestinal: See HPI, Abdominal Pain, Diarrhea; Denies Nausea, Denies Vomiting Genitourinary: See HPI; Denies Burning, Denies Discharge, Denies Drainage, Denies Frequency; Flank Pain; Denies Incontinence, Denies Pain, Denies Urgency Musculoskeletal: see HPI, back pain Skin: no symptoms reported Psychiatric/Neurological: No Symptoms Reported Endocrine: No Symptoms Reported Hematologic/Lymphatic: No Symptoms Reported Past Pawvdbm-Bvnrcz-Ecwule Hx Past Med/Social Hx: Reviewed and Corrections made Patient Social History Alcohol Use: Regular Use Alcohol Beverage of Choice: Beer Smoking Status: Former Smoker Type Used: Cigarettes, Smokeless Tobacco Former Smoker, Quit: Jun 21, 2005 2nd Hand Smoke Exposure: No Recent Foreign Travel: No Contact w/Someone Who Travel: No Recent Hopitalizations: No Immunizations Up To Date Date of Influenza Vaccine: Feb 27, 2015 Seasonal Allergies Seasonal Allergies: Yes (mild) Past Medical History Surgeries: Yes (SEVERAL ON LEG FOR BROKEN BONE CHILD, MELANOMA REMOVAL, HERNIA-UMBILICAL) Abdominal, Gallbladder, Orthopedic, Thyroidectomy Respiratory: Yes Sleep Apnea Currently Using CPAP: No Currently Using BIPAP: No Cardiac: Yes Coronary Artery Disease Neurological: No Reproductive Disorders: No Sexually Transmitted Disease: No HIV/AIDS: No Genitourinary: No Gastrointestinal: Yes (UMBILICAL HERNIA REPAIR) Abdominal Hernia, Diverticulosis, Polyps Musculoskeletal: Yes Arthritis, Fractures Endocrine: Yes (partial thyroidectomy) Hypothyroidsim HEENT: Yes (GLASSES) Loss of Vision: Denies Hearing Impairment: Denies Cancer: Yes Skin, Melanoma What Type of Treatment Did You: Surgical Intervention Psychosocial: No Integumentary: No Blood Disorders: No Adverse Reaction/Blood Tranf: No (N/A) Family Medical History PSH: -COLONOSCOPIES--POLYPECTOMIES Physical Exam Vital Signs Vital Signs - First Documented 12/31/19 11:02 Temp 36.5 Pulse 65 Resp 20 B/P (MAP) 119/94 (102) Pulse Ox 98 O2 Delivery Room Air Capillary Refill : Height/Weight/BMI Height: 6'1.00" Weight: 237lbs. 5.0oz. 107.685733ah; 32.90 BMI Method:Stated General Appearance: WD/WN, no apparent distress, other (WALKS UPRIGHT AND MOVES WITHOUT DIFFICULTY; FLAT AFFECT) Respiratory: normal breath sounds, no respiratory distress, no accessory muscle use Cardiovascular: regular rate, rhythm, no edema, no JVD, no murmur Gastrointestinal: normal bowel sounds, soft, no organomegaly, no pulsatile mass; No distended, No guarding, No rebound; tenderness (MINIMAL LLQ TENDERNESS. 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, no motor/sensory deficits, alert, normal mood/affect, oriented x 3 Skin: normal color, warm/dry; No rash Progress/Results/Core Measures Results/Orders Lab Results Laboratory Tests Test 12/31/19 11:12 Range/Units White Blood Count 11.8 H 4.3-11.0 10^3/uL Red Blood Count 4.76 4.35-5.85 10^6/uL Hemoglobin 14.9 13.3-17.7 G/DL Hematocrit 44 40-54 % Mean Corpuscular Volume 92 80-99 FL Mean Corpuscular Hemoglobin 31 25-34 PG Mean Corpuscular Hemoglobin Concent 34 32-36 G/DL Red Cell Distribution Width 12.8 10.0-14.5 % Platelet Count 272 130-400 10^3/uL Mean Platelet Volume 10.5 H 7.4-10.4 FL Neutrophils (%) (Auto) 84 H 42-75 % Lymphocytes (%) (Auto) 10 L 12-44 % Monocytes (%) (Auto) 5 0-12 % Eosinophils (%) (Auto) 0 0-10 % Basophils (%) (Auto) 0 0-10 % Neutrophils # (Auto) 10.0 H 1.8-7.8 X 10^3 Lymphocytes # (Auto) 1.2 1.0-4.0 X 10^3 Monocytes # (Auto) 0.6 0.0-1.0 X 10^3 Eosinophils # (Auto) 0.0 0.0-0.3 10^3/uL Basophils # (Auto) 0.1 0.0-0.1 10^3/uL Urine Color YELLOW Urine Clarity CLEAR Urine pH 5.5 5-9 Urine Specific [place] >=1.030 1.016-1.022 Urine Protein NEGATIVE NEGATIVE Urine Glucose (UA) NEGATIVE NEGATIVE Urine Ketones TRACE H NEGATIVE Urine Nitrite NEGATIVE NEGATIVE Urine Bilirubin NEGATIVE NEGATIVE Urine Urobilinogen 0.2 < = 1.0 MG/DL Urine Leukocyte Esterase NEGATIVE NEGATIVE Urine RBC (Auto) 2+ H NEGATIVE Urine RBC 2-5 H /HPF Urine WBC NONE /HPF Urine Squamous Epithelial Cells NONE /HPF Urine Crystals NONE /LPF Urine Bacteria NEGATIVE /HPF Urine Casts NONE /LPF Urine Mucus NEGATIVE /LPF Urine Culture Indicated NO Sodium Level 141 135-145 MMOL/L Potassium Level 4.8 3.6-5.0 MMOL/L Chloride Level 107 98-107 MMOL/L Carbon Dioxide Level 23 21-32 MMOL/L Anion Gap 11 5-14 MMOL/L Blood Urea Nitrogen 19 H 7-18 MG/DL Creatinine 0.87 0.60-1.30 MG/DL Estimat Glomerular Filtration Rate > 60 BUN/Creatinine Ratio 22 Glucose Level 120 H 70-105 MG/DL Calcium Level 9.4 8.5-10.1 MG/DL Corrected Calcium 9.1 8.5-10.1 MG/DL Magnesium Level 2.0 1.6-2.4 MG/DL Total Bilirubin 0.8 0.1-1.0 MG/DL Aspartate Amino Transf (AST/SGOT) 18 5-34 U/L Alanine Aminotransferase (ALT/SGPT) 35 0-55 U/L Alkaline Phosphatase 94 40-136 U/L Total Protein 6.8 6.4-8.2 GM/DL Albumin 4.4 3.2-4.5 GM/DL Amylase Level 51 25-125 U/L Lipase 11 8-78 U/L Urine Opiates Screen NEGATIVE NEGATIVE Urine Oxycodone Screen NEGATIVE NEGATIVE Urine Methadone Screen NEGATIVE NEGATIVE Urine Propoxyphene Screen NEGATIVE NEGATIVE Urine Barbiturates Screen NEGATIVE NEGATIVE Ur Tricyclic Antidepressants Screen NEGATIVE NEGATIVE Urine Phencyclidine Screen NEGATIVE NEGATIVE Urine Amphetamines Screen NEGATIVE NEGATIVE Urine Methamphetamines Screen NEGATIVE NEGATIVE Urine Benzodiazepines Screen NEGATIVE NEGATIVE Urine Cocaine Screen NEGATIVE NEGATIVE Urine Cannabinoids Screen NEGATIVE NEGATIVE My Orders Orders - STEFANY DENISE DO Ed Iv/Invasive Line Start (12/31/19 11:09) Ct Abd/Pelvis Wo(Kidney Stone) (12/31/19 11:09) Acute Abd Series (12/31/19 11:09) Amylase (12/31/19 11:09) Cbc With Automated Diff (12/31/19 11:09) Comprehensive Metabolic Panel (12/31/19 11:09) Drug Screen Stat (Urine) (12/31/19 11:09) Lipase (12/31/19 11:09) Magnesium (12/31/19 11:09) Ua Culture If Indicated (12/31/19 11:09) Ed Iv/Invasive Line Start (12/31/19 11:09) Lactated Ringers (Lr 1000 Ml Iv Solution (12/31/19 11:09) Ketorolac Injection (Toradol Injection) (12/31/19 11:09) Medications Given in ED Vital Signs/I&O 12/31/19 12/31/19 11:02 13:05 Temp 36.5 36.5 Pulse 65 66 Resp 20 20 B/P (MAP) 119/94 (102) 115/88 (102) Pulse Ox 98 98 O2 Delivery Room Air Progress Progress Note : Progress Note UNEVENTFUL ER STAY Diagnostic Imaging Comments CT ABDOMEN/PELVIS--PER RADIOLOGIST REPORT AT 1200 Discussion: The lung bases are well-aerated. Normal heart size. No pleural or pericardial fluid. The gallbladder appears to be surgically absent. The liver, stomach, pancreas, spleen, and adrenal glands are unremarkable. Nonobstructing left renal calculi measuring up to 6 mm. No hydronephrosis. No evidence for appendicitis. No obstruction, pneumatosis, pneumoperitoneum. Extensive diverticulosis of the sigmoid colon with no secondary evidence for diverticulitis. Prostate and urinary bladder are unremarkable. The aorta is normal in caliber. No ascites or pathologically enlarged lymph nodes identified. Previous ventral hernia repair is noted with no residual hernia defect identified. Trace amount of fluid overlying the hernia mesh just deep to the body wall near the umbilicus which measures 2.5 x 0.6 cm. No osseous abnormality identified. Impression: 1. Nonobstructing left renal calculi. No hydronephrosis. 2. Diverticulosis. 3. Periumbilical hernia repair with a small amount of soft tissue fluid overlying the mesh which is likely incidental though could be further evaluated with ultrasound as clinically indicated. ABDOMEN XRAYS--PER RADIOLOGIST REPORT AT 1253 IMPRESSION: 1. 8 mm left renal stone. 2. No radiographically apparent ureteral stone. 3. No identified acute abdominal radiographic abnormality. Reviewed: Reviewed by Me Departure Impression Primary Impression: LLQ AND LEFT FLANK PAIN Additional Impressions: Microscopic hematuria LEFT INTRA-RENAL CALCULUS Disposition: 01 HOME, SELF-CARE Condition: Improved Departure-Patient Inst. Referrals: IGOR SOLIZ DO (PCP/Family) Primary Care Physician Patient Instructions: Blood in the Urine (Hematuria), Adult (DC), Flank Pain (DC), Kidney Stones (DC), Severe Abdominal Pain, Adult (DC) Add. Discharge Instructions: LOTS OF CLEAR LIQUIDS--WATER, BROTH, JELLO, GATORADE FOLLOW UP WITH DR. SOLIZ IN 2-3 DAYS IF NO BETTER, RETURN TO ER IF WORSE Scripts Meloxicam (Mobic) 15 Mg Tablet 15 MG PO DAILY, #10 TAB Prov: STEFANY DENISE DO 12/31/19 Cyclobenzaprine HCl (Cyclobenzaprine HCl) 10 Mg Tablet 10 MG PO Q8H PRN for SPASMS, #15 TAB 0 Refills Prov: STEFANY DENISE DO 12/31/19 STEFANY DENISE DO Dec 31, 2019 11:15
[2019-12-31 11:20] LABS: BASOPHILS # (AUTO) 0.1 10^3/uL (0.0-0.1); BASOPHILS % (AUTO) 0 % (0-10); BILIRUBIN,URINE NEGATIVE (NEGATIVE); CLARITY,URINE CLEAR; COLOR,URINE YELLOW; EOSINOPHILS % (AUTO) 0 % (0-10); GLUCOSE, URINE (UA) NEGATIVE (NEGATIVE); HEMATOCRIT 44 % (40-54); HEMOGLOBIN 14.9 G/DL (13.3-17.7); KETONES,URINE TRACE (NEGATIVE); LEUKOCYTE ESTERASE ,URINE NEGATIVE (NEGATIVE); LYMPHOCYTES # (AUTO) 1.2 X 10^3 (1.0-4.0); LYMPHOCYTES % (AUTO) 10 % (12-44); MEAN CORPUSCULAR HEMOGLOBIN 31 PG (25-34); MEAN CORPUSCULAR HGB CONC 34 G/DL (32-36); MEAN CORPUSCULAR VOLUME 92 FL (80-99); MEAN PLATELET VOLUME 10.5 FL (7.4-10.4); MONOCYTES # (AUTO) 0.6 X 10^3 (0.0-1.0); MONOCYTES % (AUTO) 5 % (0-12); NEUTROPHILS % (AUTO) 84 % (42-75); NITRITE,URINE NEGATIVE (NEGATIVE); PH,URINE 5.5 (5-9); PLATELET COUNT 272 10^3/uL (130-400); PROTEIN,URINE NEGATIVE (NEGATIVE); RED CELL DISTRIBUTION WIDTH 12.8 % (10.0-14.5); WHITE BLOOD COUNT 11.8 10^3/uL (4.3-11.0)
[2019-12-31 11:26] LABS: BACTERIA,URINE NEGATIVE /HPF
[2019-12-31 11:30] LABS: ALBUMIN 4.4 GM/DL (3.2-4.5)
[2019-12-31 11:31] LABS: CHLORIDE 107 MMOL/L (98-107); POTASSIUM 4.8 MMOL/L (3.6-5.0); SODIUM 141 MMOL/L (135-145)
[2019-12-31 11:32] LABS: AMPHETAMINE SCREEN, URINE NEGATIVE (NEGATIVE); AMYLASE 51 U/L (25-125); BARBITURATE SCREEN URINE NEGATIVE (NEGATIVE); BENZODIAZEPINES SCREEN URINE NEGATIVE (NEGATIVE); CALCIUM 9.4 MG/DL (8.5-10.1); CANNABINOID SCREEN, URINE NEGATIVE (NEGATIVE); COCAINE SCREEN URINE NEGATIVE (NEGATIVE); METHADONE STAT NEGATIVE (NEGATIVE); METHAMPHETAMINE SCREEN URINE S NEGATIVE (NEGATIVE); OPIATE SCREEN URINE NEGATIVE (NEGATIVE); OXYCODONE STAT NEGATIVE (NEGATIVE); PROPOXYPHENE STAT NEGATIVE (NEGATIVE); TRICYCLIC ANTIDEPRESSANTS SCRE NEGATIVE (NEGATIVE)
[2019-12-31 11:33] LABS: GLUCOSE 120 MG/DL (70-105); TOTAL PROTEIN 6.8 GM/DL (6.4-8.2)
[2019-12-31 11:34] LABS: CARBON DIOXIDE 23 MMOL/L (21-32)
[2019-12-31 11:35] LABS: BILIRUBIN,TOTAL 0.8 MG/DL (0.1-1.0)
[2019-12-31 11:36] LABS: ALKALINE PHOSPHATASE 94 U/L (40-136)
[2019-12-31 11:37] LABS: CREATININE SERUM 0.87 MG/DL (0.60-1.30); GFR ESTIMATED > 60
[2019-12-31 11:38] LABS: BUN/CREATININE RATIO 22
[2019-12-31 11:40] LABS: ALANINE AMINOTRANSFERASE 35 U/L (0-55)
[2019-12-31 11:41] LABS: LIPASE 11 U/L (8-78)
--- NOTE | 2019-12-31 11:58 | Diagnostic Imaging Report ---
PROCEDURE: CT urinary tract, rule out kidney stone. TECHNIQUE: Multiple contiguous axial images were obtained through the abdomen and pelvis without the use of intravenous contrast. Auto Exposure Controls were utilized during the CT exam to meet ALARA standards for radiation dose reduction. Indication: Left-sided flank pain radiating to the groin. Comparison: 11/27/2016 CT of abdomen. Discussion: The lung bases are well-aerated. Normal heart size. No pleural or pericardial fluid. The gallbladder appears to be surgically absent. The liver, stomach, pancreas, spleen, and adrenal glands are unremarkable. Nonobstructing left renal calculi measuring up to 6 mm. No hydronephrosis. No evidence for appendicitis. No obstruction, pneumatosis, pneumoperitoneum. Extensive diverticulosis of the sigmoid colon with no secondary evidence for diverticulitis. Prostate and urinary bladder are unremarkable. The aorta is normal in caliber. No ascites or pathologically enlarged lymph nodes identified. Previous ventral hernia repair is noted with no residual hernia defect identified. Trace amount of fluid overlying the hernia mesh just deep to the body wall near the umbilicus which measures 2.5 x 0.6 cm. No osseous abnormality identified. Impression: 1. Nonobstructing left renal calculi. No hydronephrosis. 2. Diverticulosis. 3. Periumbilical hernia repair with a small amount of soft tissue fluid overlying the mesh which is likely incidental though could be further evaluated with ultrasound as clinically indicated. Dictated by: Dictated on workstation # [id number]
--- NOTE | 2019-12-31 12:35 | Diagnostic Imaging Report ---
EXAMINATION: Abdominal radiographs, acute series. DATE: December 31, 2019. CLINICAL INDICATION: 69-year-old male, left-sided inguinal pain. COMPARISON: CT abdomen pelvis December 31, 2019. COMMENTS: There is a 8mm left renal stone. There is no radiographically apparent ureteral stone. There are pelvic calcifications consistent with phleboliths. There are gas-filled segments of bowel which are not grossly distended. There is no identified free intraperitoneal air. Heart size and mediastinal contours are unremarkable. There is no identified pneumothorax, large pleural effusion, or focal airspace consolidation. There are degenerative changes of the lower lumbar spine. IMPRESSION: 1. 8 mm left renal stone. 2. No radiographically apparent ureteral stone. 3. No identified acute abdominal radiographic abnormality. Dictated by: Dictated on workstation # [id number]
--- NOTE | 2019-12-31 12:52 | NUR ---
called and updated of patients status and pending discharge.
[2019-12-31] MEDS ORDERED: MELO15TA14 PO (12:55)
[2019-12-31] MEDS ORDERED: CYCL10TA9 PO (12:55)
[2019-12-31 13:05] VITALS: BP 115/88
== END 2019-12-31 13:05 | disposition home or self-care (01) ==
LOC: ER 10:56 → EDUNIT# 10:56 → ER 13:05
DX: N20.0 Calculus of kidney (principal); E03.9 Hypothyroidism, unspecified; Z79.890 Hormone replacement therapy; Z85.820 Personal history of malignant melanoma of skin; Z87.891 Personal history of nicotine dependence; Z85.828 Personal history of other malignant neoplasm of skin
CPT/HCPCS: 36415; 74022; 74176; 80053; 80306; 81000; 82150; 83690; 83735; 85025

== ENCOUNTER → 2020-01-16 | Outpatient (CLI) | payer MEDICARE, OTHER ==
[~2020-01-16] MED LIST changes: +CYCL10TA9 PO; +MELO15TA14 PO
--- NOTE | 2020-01-16 13:19 | Diagnostic Imaging Report ---
EXAMINATION: Abdomen, 2 views, at 12:10 PM. INDICATION: Left nephrolithiasis. FINDINGS: As noted on the prior abdomen exam of 12/31/2019, there is a calculus overlying the left renal contour. The calculus measures approximately 8 mm and seems unchanged when compared to the prior study. There is no other pathological calcification evident aside from a few phleboliths low in the pelvis. There is gas in both the large and small bowel in a nonspecific fashion. There is no sign of a bowel obstruction. There is a fair amount of fecal material in the ascending colon. The osseous structures are intact. The degenerative disc and bony disease involving the lower lumbar spine noted on the prior study is again evident and no different. IMPRESSION: 1. The calcification overlying the left kidney seen previously is again noted and seems unchanged in size and position. 2. There is no acute abnormality in the abdomen. Dictated by: Dictated on workstation # [id number]
== END ==
LOC: RAD 11:48
PROVIDERS: ATTEND Internal Medicine
DX: N20.0 Calculus of kidney (principal); K42.9 Umbilical hernia without obstruction or gangrene; K57.30 Diverticulosis of large intestine without perforation or abscess without bleeding
CPT/HCPCS: 74018

== ENCOUNTER 2020-02-06 09:35 | Emergency (ER) | payer MEDICARE, OTHER ==
[~2020-02-06] VITALS: Ht 185 cm; Wt 109.0 kg
[2020-02-06] MEDS ORDERED: NS IV 1000 ML 1,000 ML IV SCH (10:03)
[2020-02-06 10:14] LABS: BASOPHILS % (AUTO) 0 % (0-10); EOSINOPHILS # (AUTO) 0.1 10^3/uL (0.0-0.3); EOSINOPHILS % (AUTO) 1 % (0-10); HEMATOCRIT 46 % (40-54); HEMOGLOBIN 15.5 G/DL (13.3-17.7); LYMPHOCYTES # (AUTO) 1.2 X 10^3 (1.0-4.0); LYMPHOCYTES % (AUTO) 13 % (12-44); MEAN CORPUSCULAR HEMOGLOBIN 30 PG (25-34); MEAN CORPUSCULAR HGB CONC 34 G/DL (32-36); MEAN CORPUSCULAR VOLUME 91 FL (80-99); MEAN PLATELET VOLUME 10.6 FL (7.4-10.4); MONOCYTES # (AUTO) 0.6 X 10^3 (0.0-1.0); MONOCYTES % (AUTO) 7 % (0-12); NEUTROPHILS # (AUTO) 7.2 X 10^3 (1.8-7.8); NEUTROPHILS % (AUTO) 79 % (42-75); PLATELET COUNT 276 10^3/uL (130-400); RED CELL DISTRIBUTION WIDTH 12.8 % (10.0-14.5); WHITE BLOOD COUNT 9.1 10^3/uL (4.3-11.0)
[2020-02-06] MEDS ORDERED: ONDANSETRON 4 MG/2 ML (SDV) Z0FRAN IVP ONE (10:15)
[2020-02-06] MEDS ORDERED: KETOROLAC 30 MG/ML VIAL IVP ONE (10:15)
--- NOTE | 2020-02-06 10:25 | NUR ---
UPDATED ON PHONE
--- NOTE | 2020-02-06 10:37 | Diagnostic Imaging Report ---
EXAMINATION: Supine abdomen at 10:38 AM. INDICATION: Left-sided pain. FINDINGS: The prior exam of 01/16/2020 noted an 8 mm calculus overlying the left renal contour. In the interval since the prior exam, the calculus has changed in position and now seems to be overlying the proximal left ureter. I suspect ithe calculus may be producing partial obstruction of the left collecting system. If further study is desired, then a CT of the abdomen and pelvis would be recommended. No other pathological calcification is noted. The overall appearance of the abdomen is otherwise stable. IMPRESSION: The calculus overlying the left kidney seen on the prior exam now appears to overlie the proximal left ureter. This calculus may be producing partial obstruction of the left collecting system. Recommendations as above. Dictated by: Dictated on workstation # [id number]
--- OUTSIDE RECORDS SUMMARY | 2020-02-06 10:39 | XMS REPORT ---
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 Name Role Phone IGOR SOLIZ Unavailable MARCIA NAVAS, MITESH Witt Unavailable Unavailable JEANNINE NAVAS, NICOLE Caballero Unavailable Unavailable ZAKI NAVAS, KAN Monreal Unavailable Unavailable MARCIA NAVAS, MITESH Witt Unavailable Unavailable IGOR SOLIZ DO Unavailable Unavailable JEANNINE NAVAS, NICOLE Caballero Unavailable Unavailable PATRICIA NAVAS, WOLF Magana Unavailable Unavailable HOWIE RICHMOND, STEFANY Khoury Unavailable Unavailable Unavailable Unavailable Unavailable Unavailable Unavailable Unavailable Allergies The data below is from unstructured sourcesNo known allergies.No known allergies.No known allergies.No known allergies.No known allergies.No known allergies.No known allergies. Encounters Encounter Date Encounter Type Encounter Diagnosis Care Provider Facility Start: Emergency department NICOLE PAEZ [facility] 02-06-2020 patient visit [facility] Start: Patient encounter IGOR SOLIZ DO [facility] [address] [facility] 01-16-2020 [facility] Start: Emergency department STEFANY HERNÁNDEZO DO [facility] 12-31-2019 patient visit [facility] End: 12-31-2019 Start: Patient encounter STEFANY HERNÁNDEZO DO [facility] 12-31-2019 [facility] Start: Patient encounter WOLF GOMEZ MD [facility] [address] 11-03-2019 [facility] End: 11-03-2019 Start: Patient encounter WOLF GOMEZ MD [facility] [address] [facility] 10-30-2019 [facility] End: 10-30-2019 Start: Patient encounter WOLF GOMEZ MD [facility] 10-27-2019 [facility] Start: Patient encounter WOLF GOMEZ MD [facility] [address] 10-27-2019 [facility] Start: Patient encounter 10-20-2017 procedure End: 10-20-2017 Start: Patient encounter KAN HAINES MD [facility] 10-20-2017 [facility] End: 10-20-2017 Start: Patient encounter IGOR SOLIZ [facility] 10-08-2017 [facility] Start: Patient encounter MITESH KENNEDY MD Not Avai lable ([id number]) 12-03-2016 procedure End: 12-03-2016 Start: Patient encounter MITESH KENNEDY MD [facility] 12-03-2016 [facility] End: 12-03-2016 Start: Patient encounter MITESH KENNEDY MD [facility] 11-30-2016 [facility] End: 11-30-2016 Start: Patient encounter MITESH KENNEDY MD [facility] 11-27-2016 [facility] Start: Emergency department NICOLE PAEZ MD N ot Available ([id number]) 04-13-2016 patient visit End: 04-13-2016 Start: Emergency department NICOLE PAEZ [facility] 04-12-2016 patient visit [facility] End: 04-13-2016 Start: Patient encounter WOLF GOMEZ MD Not Availa ble ([id number]) 05-03-2015 procedure End: 05-03-2015 Start: Patient encounter IGOR SOLIZ DO Not Av ailable ([id number]) 05-22-2014 procedure Start: Patient encounter IGOR SOLIZ DO Not Av ailable ([id number]) 11-21-2013 procedure Start: Patient encounter IGOR SOLIZ DO Not Av ailable ([id number]) 08-09-2013 procedure End: 08-09-2013 Start: Patient encounter BERTIN CARTAGENA MD Not Av ailable ([id number]) 01-20-2013 procedure Start: Patient encounter MITESH KENNEDY MD Not Avai lable ([id number]) 12-13-2012 procedure Start: Patient encounter KHOA SOLIZ Not Avai lable ([id number]) 11-25-2012 procedure Start: Patient encounter MITESH KENNEDY MD Not Avai lable ([id number]) 11-16-2012 procedure Start: Patient encounter MITESH KENNEDY MD Not Avai lable ([id number]) 11-09-2012 procedure Start: Patient encounter WOLF GOMEZ MD Not Availa ble ([id number]) 05-03-2012 procedure End: 05-03-2012 Start: Patient encounter WOLF GOMEZ MD Not Availa ble ([id number]) 04-27-2012 procedure Start: Patient encounter LAURI BECK Not Availab le ([id number]) 11-03-2011 procedure End: 11-04-2011 Start: Patient encounter IGOR MARTÍNEZ DO Not Av ailable ([id number]) 09-08-2011 procedure End: 09-09-2011 ENCOUNTER FOR OTHER Encounter for other WOLF GOMEZ MD Not Available ([id number]) PREPROCEDURAL EXAMIN preprocedural examination ENCOUNTER FOR Encounter for MITESH KENNEDY MD [facility] PREPROCEDURAL preprocedural [facility] LABORATORY E laboratory ([id number]) examination [id number] Pre-operative MITESH KENNEDY MD Not Avai lable ([id number]) CARDIOVASCULAR cardiovascular examination Pre-operative WOLF GOMEZ MD [...] hernia without (35 obstruction or gangrene] sources) Calculus of Calculus of kidney 01-02-2020 Episodic STEFANY RE NO DO urinary tract (12 sources) 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 without BRUE GGEMANN sis and angina pectoris ; Translations: other heart [Coronary atherosclerosis o f redding disease coronary artery] (25 sources) Disorders of Hyperlipidemia, unspecified 10-25-2019 Chronic KAN HAINES lipid metabolism (11 sources) Diverticulos Diverticulosis of intestine, part 11-08-2019 Spring Setter darya WOLF GOMEZ is and unspecified, without perforation or MD diverticulit abscess without bleeding ; is Translations: [Diverticulos is of (17 sources) colon (without mention of hemorrhage)] Essential Essential (primary) hypertension 10-25-2019 Chroneh COSTA hypertension SOLIZ DO (13 sources) Heart valve Rheumatic mitral insufficiency 10-25-2019 Chronic IGOR disorders SOLIZ DO (13 sources) Hyperplasia Benign prostatic hyperplasia 11-08-2019 Chronic WOLF GOMEZ of prostate without lower urinary tract MD (12 sources) symptoms Immunization Encounter for screening for other 10-25-2019 Epis odic MITESH s and bacterial diseases ; Translations: MARCIA NAVAS screening [Screening examination for other for specified bacterial and spi rochetal infectious diseases] disease (24 sources) Malaise and Other fatigue 10-25-2019 Episodic IGOR fatigue SOLIZ DO (13 sources) Melanomas of Melanoma of skin, site unspecified Chronic MITESH skin ; Translations: [Malignant melanoma MARCIA NAVAS (8 sources) of skin of other and unspec ified parts of face] Melanomas of Personal history of malignant 01-02-2020 Episodic STEFANY HOWIE DO skin melanoma of skin (8 sources) Menopausal Hormone replacement therapy 01-02-2020 Episodic STEFANY HOWIE DO disorders (8 sources) Nonspecific Other chest pain ; Translations: 10-25-2019 Episod ic IGOR chest pain [Other chest pain] SOLIZ DO (14 sources) Occlusion or Occlusion and stenosis of bilateral 10-25-2019 Ch ronel HAINES stenosis of carotid arteries MD precerebral arteries (11 sources) Other and Benign neoplasm of ascending colon 11-08-2019 Epis odic WOLF PATRICIA unspecified MD benign neoplasm (9 sources) Other and Personal history of colonic polyps 11-08-2019 Epis odic WOLF PATRICIA unspecified MD benign neoplasm (9 sources) Other and Polyp of colon 11-08-2019 Episodic WOLF CARLSO N unspecified MD benign neoplasm (9 sources) Other liver Hepatomegaly, not elsewhere 10-25-2019 Episodic NICOLE diseases classified BRUEGAUSTINMANN (16 sources) MD Other lower Other nonspecific abnormal finding Episodic IGOR respiratory of lung field SOLIZ DO disease (2 sources) Other Carpal tunnel syndrome, unspecified 10-25-2019 Chr onic KAN HAINES nervous upper limb MD system disorders (11 sources) Other Personal history of other malignant 01-02-2020 Epi sodic STEFANY HOWIE DO non-epitheli neoplasm of skin al cancer of skin (8 sources) Other Encounter for screening for 11-08-2019 Episodic WOLF GOMEZ screening malignant neoplasm of colon MD for suspected conditions (not mental disorders or infectious disease) (14 sources) Residual Obstructive sleep apnea (adult) 10-25-2019 Chronic MITESH codes; (pediatric) MARCIA NAVAS unclassified (26 sources) Residual Obstructive sleep apnea Chronic WILL JORGE codes; (adult)(pediatric) MARTÍNEZ RICHMOND unclassified (2 sources) Residual Family history of ischemic heart 10-25-2019 Episod ic KAN HAINES codes; disease and other diseases of the M D unclassified circulatory system (11 sources) Residual Family history of malignant 11-08-2019 Episodic WOLF GOMEZ codes; neoplasm of digestive organs unclassified (12 sources) Screening Personal history of nicotine 10-25-2019 Episodic MIKEYBILLIE HAINES and history dependence MD of mental health and substance abuse codes (19 sources) Substance-re Nicotine dependence, chewing 10-25-2019 Chronic IGOR lated tobacco, uncomplicated ; SOLIZ D O disorders Translations: [Tobacco use (29 sources) disorder] Thyroid Goiter, unspecified ; Translations: 01-02-2020 Chr onic KHOA disorders [Nontoxic uninodular goiter] SULLIV AN (17 sources) Past or Other Problems Problem Problem Date Last Documented Episodic/Chr Provider Classificati Recorded Date onic on Other Follow-up examination, following Episodic WOLF PATRICIA aftercare other surgery MD (1 source) Other and Benign neoplasm of skin of trunk, Episodic MITESH unspecified except scrotum MARCIA NAVAS benign neoplasm (6 sources) Other and Benign neoplasm of cecum Episodic SRIKANTH GOMEZ unspecified benign neoplasm (3 sources) Other and Personal history of colonic polyps Episodic WOLF GOMEZ unspecified benign neoplasm (1 source) Other lower Solitary pulmonary nodule Episodic RICHAR LLIAM respiratory SOLIZ DO disease (3 sources) Other skin Swelling, mass, or lump in chest Episodic BERTIN CARTAGENA MD (3 sources) Residual Family history of ischemic heart Episodic IGOR codes; disease MARTÍNEZ RICHMOND unclassified (3 sources) Residual Family history of malignant Episodic WOLF GOMEZ codes; neoplasm of gastrointestinal tract unclassified (1 source) Spondylosis; Cervicalgia Episodic IGOR intervertebr MARTÍNEZ RICHMOND al disc disorders; other back problems (3 sources) Procedures Date Procedure Procedure Detail Performing Cl inician Left heart cardiac IGOR SOLIZ DO catheterization Results Test Name Value Interpreta Reference Facilit Date tion Range y Time laboratory on 2019-12-31 Albumin [Mass/Vol] 4.4 g/dL Negative 3.2-4.5 PENDING 12-19 2-2 g/dL [facility] N [facility] 07:12-0 ([id number]) 400 ALP [Catalytic 94 U/L Negative 40-136 U/L PENDING activity/Vol] [facility] N [facility] 07:12-0 ([id number]) 400 ALT [Catalytic 35 U/L Negative 0-55 U/L PENDING activity/Vol] [facility] 020 N [facility] 07:12-0 ([id number]) 400 Amphetamines Screen Negative Invalid NEGATIVE PENDING 05-22 Ql (U) Interpreta [facility] 020 tion Code N [facility] 07:12-0 ([id number]) 400 Amylase [Catalytic 51 U/L Negative 25-125 U/L PENDING 05-22 activity/Vol] [facility] 020 N [facility] 07:12-0 ([id number]) 400 Anion gap 11 mmol/L Negative 5-14 PENDING [Moles/Vol] mmol/L [facility] 020 N [facility] 07:12-0 ([id number]) 400 AST [Catalytic 18 U/L Negative 5-34 U/L PENDING activity/Vol] [facility] 020 N [facility] 07:12-0 ([id number]) 400 Bacteria LM Ql Negative Invalid PENDING (Urine sed) Interpreta [facility] 020 tion Code N [facility] 07:12-0 ([id number]) 400 Barbiturates Ql (U) Negative Invalid NEGATIVE PENDING 05-22 Interpreta [facility] 020 tion Code N [facility] 07:12-0 ([id number]) 400 Basophils (Bld) 0.1 10*3/uL Negative 0.0-0.1 PENDING 12-30 [#/Vol] 10*3/uL [facility] 020 N [facility] 07:12-0 ([id number]) 400 Basophils/100 WBC 0 % Negative 0-10 % PENDING 12-30 (Bld) [facility] 020 [facility] 07:12-0 ([id number]) 400 Benzodiazepines Ql Negative Invalid NEGATIVE PENDING 12-19 2-2 (U) Interpreta [facility] 020 tion Code N [facility] 07:12-0 ([id number]) 400 Bilirubin [Mass/Vol] 0.8 mg/dL Negative 0.1-1.0 PENDING mg/dL [facility] 020 N [facility] 07:12-0 ([id number]) 400 Bilirubin Ql (U) Negative Invalid NEGATIVE PENDING Interpreta [facility] 020 tion Code N [facility] 07:12-0 ([id number]) 400 Calcium [Mass/Vol] 9.4 mg/dL Negative 8.5-10.1 PENDING 07-1 2-2 mg/dL [facility] 020 N [facility] 07:12-0 ([id number]) 400 Calcium [Mass/Vol] 9.1 mg/dL Negative 8.5-10.1 PENDING 07-1 2-2 mg/dL [facility] 020 N [facility] 07:12-0 ([id number]) 400 Cannabinoids Screen Negative Invalid NEGATIVE PENDING 05-22 Ql (U) Interpreta [facility] 020 tion Code N [facility] 07:12-0 ([id number]) 400 Casts LM Ql (Urine NONE Invalid PENDING sed) Interpreta [facility] 020 tion Code N [facility] 07:12-0 ([id number]) 400 Chloride [Moles/Vol] 107 mmol/L Negative 98-107 PENDING 0 12-2 mmol/L [facility] 020 N [facility] 07:12-0 ([id number]) 400 Clarity (U) CLEAR Invalid PENDING Interpreta [facility] 020 tion Code N [facility] 07:12-0 ([id number]) 400 CO2 [Moles/Vol] 23 mmol/L Negative 21-32 PENDING mmol/L [facility] 020 N [facility] 07:12-0 ([id number]) 400 Cocaine Ql (U) Negative Invalid NEGATIVE PENDING Interpreta [facility] 020 tion Code N [facility] 07:12-0 ([id number]) 400 Color (U) YELLOW Invalid PENDING Interpreta [facility] 020 tion Code N [facility] 07:12-0 ([id number]) 400 Creatinine 0.87 mg/dL Negative 0.60-1.30 PENDING [Mass/Vol] mg/dL [facility] 020 N [facility] 07:12-0 ([id number]) 400 Creatinine and > Invalid PENDING Glomerular Interpreta [facility] 020 filtration tion Code N [facility] 07:12-0 rate.predicted panel ([id number]) 400 - Serum, Plasma or Blood Crystals LM Ql NONE Invalid PENDING (Urine sed) Interpreta [facility] 020 tion Code N [facility] 07:12-0 ([id number]) 400 Eosinophils (Bld) 0.0 10*3/uL Negative 0.0-0.3 PENDING 05-22 [#/Vol] 10*3/uL [facility] 020 N [facility] 07:12-0 ([id number]) 400 Eosinophils/100 WBC 0 % Negative 0-10 % PENDING 05-22 (Bld) [facility] 020 N [facility] 07:12-0 ([id number]) 400 Epithelial NONE Invalid PENDING cells.squamous LM Ql Interpreta [facility] 020 (Urine sed) tion Code N [facility] 07:12-0 ([id number]) 400 Erythrocyte 12.8 % Negative 10.0-14.5 PENDING distribution width % [facility] 020 (RBC) [Ratio] N [facility] 07:12-0 ([id number]) 400 Glucose [Mass/Vol] 120 mg/dL High 70-105 PENDING 12-19 2-2 mg/dL [facility] 020 N [facility] 07:12-0 ([id number]) 400 Glucose Auto test Negative Invalid NEGATIVE PENDING 12-30 strip Ql (U) Interpreta [facility] 020 tion Code N [facility] 07:12-0 ([id number]) 400 Hematocrit (Bld) 44 % Negative 40-54 % PENDING [Volume fraction] [facility] 020 N [facility] 07:12-0 ([id number]) 400 Hemoglobin (Bld) 14.9 g/dL Negative 13.3-17.7 PENDING [Mass/Vol] g/dL [facility] 020 N [facility] 07:12-0 ([id number]) 400 Ketones Auto test TRACE Abnormal NEGATIVE PENDING 12-30 strip Ql (U) [facility] 020 N [facility] 07:12-0 ([id number]) 400 Leukocyte esterase Negative Invalid NEGATIVE PENDING 12-19-2 Test strip Ql (U) Interpreta [facility] 020 tion Code N [facility] 07:12-0 ([id number]) 400 Lipase [Catalytic 11 U/L Negative 8-78 U/L PENDING 12-30 activity/Vol] [facility] 020 N [facility] 07:12-0 ([id number]) 400 Lymphocytes (Bld) 1.2 10*3/uL Negative 1.0-4.0 PENDING 05-22 [#/Vol] 10*3 [facility] 020 N [facility] 07:12-0 ([id number]) 400 Lymphocytes/100 WBC 10 % Low 12-44 % PENDING 05-22 (Bld) [facility] 020 [facility] 07:12-0 ([id number]) 400 Magnesium [Mass/Vol] 2.0 mg/dL Negative 1.6-2.4 PENDING mg/dL [facility] 020 [facility] 07:12-0 ([id number]) 400 MCH (RBC) [Entitic 31 pg Negative 25-34 pg PENDING 12-19 2-2 mass] [facility] 020 [facility] 07:12-0 ([id number]) 400 MCHC (RBC) 34 g/dL Negative 32-36 g/dL PENDING [Mass/Vol] [facility] 020 [facility] 07:12-0 ([id number]) 400 MCV (RBC) [Entitic 92 Negative 80-99 PENDING 12-19-2 vol] [foz_us] [facility] 020 [facility] 07:12-0 ([id number]) 400 Methadone Screen Ql Negative Invalid NEGATIVE PENDING 05-22 (U) Interpreta [facility] 020 tion Code [facility] 07:12-0 ([id number]) 400 Methamphetamine (U) Negative Invalid NEGATIVE PENDING 05-22 [Mass/Vol] Interpreta [facility] 020 tion Code N [facility] 07:12-0 ([id number]) 400 Monocytes (Bld) 0.6 10*3/uL Negative 0.0-1.0 PENDING 12-30 [#/Vol] 10*3 [facility] 020 [facility] 07:12-0 ([id number]) 400 Monocytes/100 WBC 5 % Negative 0-12 % PENDING 12-30 (Bld) [facility] 020 [facility] 07:12-0 ([id number]) 400 Mucus Ql (Urine sed) Negative Invalid PENDING 12-30 Interpreta [facility] 020 tion Code N [facility] 07:12-0 ([id number]) 400 Neutrophils (Bld) 10.0 10*3/uL High 1.8-7.8 PENDING [#/Vol] 10*3 [facility] 020 N [facility] 07:12-0 ([id number]) 400 Neutrophils/100 WBC 84 % High 42-75 % PENDING 05-22 (Bld) [facility] 020 N [facility] 07:12-0 ([id number]) 400 Nitrite Ql (U) Negative Invalid NEGATIVE PENDING Interpreta [facility] 020 tion Code N [facility] 07:12-0 ([id number]) 400 Opiates Screen Ql Negative Invalid NEGATIVE PENDING 12-30 (U) Interpreta [facility] 020 tion Code N [facility] 07:12-0 ([id number]) 400 oxyCODONE Ql (U) Negative Invalid NEGATIVE PENDING Interpreta [facility] 020 tion Code N [facility] 07:12-0 ([id number]) 400 pH (U) 5.5 [pH] Invalid 5-9 PENDING Interpreta [facility] 020 tion Code N [facility] 07:12-0 ([id number]) 400 Phencyclidine Ql (U) Negative Invalid NEGATIVE PENDING Interpreta [facility] 020 tion Code N [facility] 07:12-0 ([id number]) 400 Platelet mean volume 10.5 High 7.4-10.4 PENDING (Bld) [Entitic vol] [foz_us] [facility] 020 N [facility] 07:12-0 ([id number]) 400 Platelets (Bld) 272 10*3/uL Negative 130-400 PENDING 12-30 [#/Vol] 10*3/uL [facility] 020 N [facility] 07:12-0 ([id number]) 400 Potassium 4.8 mmol/L Negative 3.6-5.0 PENDING [Moles/Vol] mmol/L [facility] 020 N [facility] 07:12-0 ([id number]) 400 Propoxyphene Ql (U) Negative Invalid NEGATIVE PENDING 05-22 Interpreta [facility] 020 tion Code N [facility] 07:12-0 ([id number]) 400 Protein [Mass/Vol] 6.8 g/dL Negative 6.4-8.2 PENDING 07-1 2-2 g/dL [facility] 020 N [facility] 07:12-0 ([id number]) 400 Protein Ql (U) Negative Invalid NEGATIVE PENDING Interpreta [facility] 020 tion Code N [facility] 07:12-0 ([id number]) 400 RBC (Bld) [#/Vol] 4.76 10*6/uL Negative 4.35-5.85 PENDING 10*6/uL [facility] 020 N [facility] 07:12-0 ([id number]) 400 RBC LM.HPF (Urine Abnormal PENDING sed) [#/Area] [facility] 020 N [facility] 07:12-0 ([id number]) 400 RBC Ql (U) 2+ Abnormal NEGATIVE PENDING [facility] 020 N [facility] 07:12-0 ([id number]) 400 Sodium [Moles/Vol] 141 mmol/L Negative 135-145 PENDING 05-22 mmol/L [facility] 020 [facility] 07:12-0 ([id number]) 400 Specific gravity (U) >= Invalid 1.016-1.02 PENDING 0 [Rel density] Interpreta 2 [facility] 020 tion Code N [facility] 07:12-0 ([id number]) 400 Tricyclic Negative Invalid NEGATIVE PENDING antidepressants Interpreta [facility] 020 Screen Ql (U) tion Code N [facility] 07:12-0 ([id number]) 400 Urea nitrogen 19 mg/dL High 7-18 mg/dL PENDING [Mass/Vol] [facility] 020 N [facility] 07:12-0 ([id number]) 400 Urea 22 mg/mg Invalid PENDING nitrogen/Creatinine Interpreta [facility] 020 [Mass ratio] tion Code N [facility] 07:12-0 ([id number]) 400 Urinalysis complete NO Invalid PENDING W Reflex Culture Interpreta [facility] 020 panel - Urine tion Code N [facility] 07:12-0 ([id number]) 400 Urobilinogen (U) 0.2 mg/dL Invalid < = 1.0 PENDING [Mass/Vol] Interpreta mg/dL [facility] 020 tion Code N [facility] 07:12-0 ([id number]) 400 WBC (Bld) [#/Vol] 11.8 10*3/uL High 4.3-11.0 PENDING 10*3/uL [facility] 020 N [facility] 07:12-0 ([id number]) 400 WBC LM.HPF (Urine NONE Invalid PENDING sed) [#/Area] Interpreta [facility] 020 tion Code N [facility] 07:12-0 ([id number]) 400 laboratory on 2019-10-30 Coronavirus Ab Qn Negative Invalid Negative PENDING 10-29 (S) Interpreta [facility] 020 tion Code N [facility] 09:13-0 ([id number]) 400 Social History No Information Vital Signs The data below is from unstructured sources Vital Response Date/Time Temperature (Fahrenheit) 97.8 degree s F (97.6 - 99.5) 05/03/2015 11:06am Temperature (Calculated Celsius) 36. 07600 degrees C (36.4 - 37.5) 05/03/2015 11:06am [...] inches 05/03/2015 7:30am Height (Calculated Centimeters) 185. 779101 cm 05/03/2015 7:30am Weight (Pounds) 240 pounds 05/03/2015 7:30am Weight (Calculated Grams) 791419.170 gm 05/03/2015 7:30am Weight (Calculated Kilograms) 108.86 [...] inches 11/30/2016 9:56am Height (Calculated Centimeters) 185. 284487 cm 11/30/2016 9:56am Weight (Pounds) 237 pounds 11/30/2016 9:56am Weight (Ounces) 5.0 oz 0 11/30/2016 9:56am Weight (Calculated Grams) 538400.14 gm 11/30/2016 9:56am Weight (Calculated Kilograms) 107.64 3140 kilograms 11/30/2016 9:56am Calculated BMI 31.3 11/19 9:56am Vital Response Date/Time Temperature (Fahrenheit) 98.3 degree s F (97.6 - 99.5) 12/03/2016 4:40pm Temperature (Calculated Celsius) 36. 95490 degrees C (36.4 - 37.5) 12/03/2016 4:30pm [...] inches 12/03/2016 11:05am Height (Calculated Centimeters) 185. 686360 cm 12/03/2016 11:05am Weight (Pounds) 237 pounds 12/03/2016 11:05am Weight (Ounces) 5.0 oz 0 12/03/2016 11:05am Weight (Calculated Grams) 476632.14 gm 12/03/2016 11:05am Weight (Calculated Kilograms) 107.64 3140 kilograms 12/03/2016 11:05am Calculated BMI 31.3 11/19 11:05am Vital Response Date/Time Temperature (Fahrenheit) 98.7 degree s F (97.6 - 99.5) 10/20/2017 1:20pm Temperature (Calculated Celsius) 37. 35967 degrees C (36.4 - 37.5) 10/20/2017 1:00pm [...] inches 10/20/2017 6:56am Height (Calculated Centimeters) 185. 220589 cm 10/20/2017 6:56am Weight (Pounds) 237 pounds 10/20/2017 6:56am Weight (Ounces) 5.0 oz 0 10/20/2017 6:56am Weight (Calculated Grams) 483444.14 gm 10/20/2017 6:56am Weight (Calculated Kilograms) 107.64 3140 kilograms 10/20/2017 6:56am Calculated BMI 31.3 07/2017 6:56am Vital Response Date/Time Temperature (Fahrenheit) 98.7 degree s F (97.6 - 99.5) 10/20/2017 1:20pm Temperature (Calculated Celsius) 37. 59272 degrees C (36.4 - 37.5) 10/20/2017 1:00pm [...] inches 10/20/2017 6:56am Height (Calculated Centimeters) 185. 530851 cm 10/20/2017 6:56am Weight (Pounds) 237 pounds 10/20/2017 6:56am Weight (Ounces) 5.0 oz 0 10/20/2017 6:56am Weight (Calculated Grams) 521165.14 gm 10/20/2017 6:56am Weight (Calculated Kilograms) 107.64 [...] Directives No 7:30am Health Care Power of Composition Mixer No 05/03/15 7:30am Organ Donor Yes 05/03/15 7:30am Resuscitation Status Full Code 05/03/15 7:30am Directive Response Recor ded Date/Time Advance Directives No 9:49am Health Care Power of Composition Mixer No 11/30/16 9:49am Organ Donor Yes 11/30/16 9:49am Resuscitation Status Full Code 11/30/16 9:49am Directive Response Recor ded Date/Time Advance Directives No 11:01am Health Care Power of Composition Mixer No 12/03/16 11:01am Organ Donor Yes 12/03/16 11:01am Resuscitation Status Full Code 06/15/17 11:01am Directive Response Recor ded Date/Time Advance Directives No 6:56am Health Care Power of Composition Mixer No 10/20/17 6:56am Organ Donor Yes 10/20/17 6:56am Resuscitation Status Full Code 10/20/17 6:56am Discharge Instructions No hospital discharge instructions.No hospital discharge instruction information available.No hospital discharge instruction information available. Additional Source Comments This clinical document has been generated using [employer] software that has been certified by the Office of the National Coordinator for Health Information Technology (ONC 15.99.04.3023.Diam.[id number]) and the National Committee for Battery Hand (NCQA, as an eMeasure certified technology). FOR [...] BASED ON T HE PRIMARY CLINICAL RECORDS. [email or web address] provides no warranty or guara ntee of the accuracy or completeness of information in this document.The followi ng information is based on time limited clinical information
--- OUTSIDE RECORDS SUMMARY | 2020-02-06 10:40 | XMS REPORT | Continuity of Care Document ---
Author Author [facility] Organization [employer] Address Unknown Phone Unavailable Allergies Active Description Code Type Severity Reaction Onset Reported/Identified Relationship to Patient Clinical Status Yes No Known Drug Allergies [id number] Drug Allergy Mild N/A 05/03/2015 Yes No Known Drug Allergies [id number] Drug Allergy Unknown N/A 10/27/2019 Medications There is no data. Problems Date Dx Coded Attending Type Code Diagnosis Diagnosed By 05/20/1611 WOLF GOMEZ MD Ot Z01.818 ENCOUNTER FOR [...] SOLIZ DO Ot 414.01 CORONARY ATHEROSCLEROSIS OF [place] CORON 08/09/2013 IGOR SOLIZ DO Ot 723.1 [...] Witt Ot V72.81 05/22/2014 MARCIA NAVAS, MITESH Eduar Ot V74.8 05/22/2014 MARCIA NAVAS, MITESH Witt Ot 172.3 05/22/2014 MARCIA NAVAS, MITESH M Ot 216.5 05/22/2014 KHOA SOLIZ RESIDENTIAL PROPERTY TAX APPRAISER Ot 240.9 05/22/2014 MARCIA NAVAS, MITESH Witt [...] MITESH Witt Ot 216.5 05/22/2014 KHOA SOLIZ RESIDENTIAL PROPERTY TAX APPRAISER Ot 240.9 05/22/2014 MARCIA NAVAS, MITESH Witt Ot 241.0 05/22/2014 BERTIN CARTAGENA MD Ot 240.9 05/22/2014 BERTIN CARTAGENA MD Ot 786.6 05/22/2014 IGOR SOLIZ DO Ot 172.9 05/22/2014 IGOR SOLIZ DO Ot 793.19 06/11/2014 IGOR SOLIZ DO Ot 793.11 05/03/2015 WOLF GOMEZ MD Ot D12. 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 0 ENLARGED PROSTATE WITHOUT LOWER URINARY 05/03/2015 WOLF GOMEZ MD Ot Z12. 11 ENCOUNTER [...] 04/13/2016 MARCIA NAVAS, MITESH Witt Ot V72.81 [id number] CARDIOVASCULAR 04/13/2016 MARCIA NAVAS, MITESH Witt Ot V74.8 SCREEN-BACTERIAL DIS NEC 04/13/2016 MARCIA NAVAS, MITESH Witt Ot 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 04/13/2016 MARCIA NAVAS, MITESH Witt Ot 216.5 BENIGN SHELLY SKIN TRUNK 04/13/2016 KHOA SOLIZ RESIDENTIAL PROPERTY TAX APPRAISER Ot 240.9 GOITER NOS 04/13/2016 MARCIA NAVAS, [...] Caballero Ot I25.10 ATHSCL HEART DISEASE OF [place] CORONARY 04/13/2016 NICOLE PAEZ MD Ot K80.20 CALCULUS OF GALLBLADDER W/O CHOLECYSTITI 04/13/2016 NICOLE PAEZ MD T Ot R10.11 RIGHT UPPER QUADRANT PAIN 04/13/2016 NICOLE PAEZ MD T Ot R11.0 NAUSEA 04/13/2016 NICOLE PAEZ MD Ot R16.0 HEPATOMEGALY, NOT ELSEWHERE CLASSIFIED 04/15/2016 NICOLE PAEZ MD Ot I25.10 ATHSCL HEART DISEASE OF [place] CORONARY 04/15/2016 NICOLE PAEZ MD Ot K80.20 CALCULUS OF GALLBLADDER W/O CHOLECYSTITI 04/15/2016 NICOLE PAEZ MD Ot R10.11 RIGHT UPPER QUADRANT PAIN 04/15/2016 NICOLE PAEZ MD T Ot R11.0 NAUSEA 04/15/2016 NICOLE PAEZ MD Ot R16.0 HEPATOMEGALY, NOT ELSEWHERE CLASSIFIED 04/17/2016 NICOLE PAEZ MD Ot I25.10 ATHSCL HEART DISEASE OF [place] CORONARY 04/17/2016 NICOLE PAEZ MD Ot K80.20 [...] MD Ot I25.10 ATHSCL HEART DISEASE OF [place] CORONARY 12/03/2016 MITESH KENNEDY MD Ot K43.0 INCISIONAL HERNIA WITH OBSTRUCTION, WITH 12/03/2016 MITESH KENNEDY MD Ot K80.10 CALCULUS OF GALLBLADDER W CHRONIC CHOLEC 12/08/2016 MARCIA NAVAS, MITESH Witt Ot F17.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 DEPENDENCE, CHEWING TOBACCO, UN 12/08/2016 MITESH KENNEDY MD Ot G47.33 OBSTRUCTIVE SLEEP APNEA (ADULT) (PEDIATR 12/08/2016 MITESH KENNEDY MD Ot I25.10 ATHSCL HEART DISEASE OF [place] CORONARY 12/08/2016 MITESH KENNEDY MD Ot K43.0 INCISIONAL HERNIA WITH OBSTRUCTION, WITH 12/08/2016 MIETSH KENNEDY MD Ot K80.10 CALCULUS OF GALLBLADDER W CHRONIC CHOLEC 12/09/2016 MITESH KENNEDY MD M Ot K42.9 UMBILICAL HERNIA WITHOUT OBSTRUCTION [...] MD Ot I25.10 ATHSCL HEART DISEASE OF [place] CORONARY 12/10/2016 MITESH KENNEDY MD Ot K43.0 INCISIONAL HERNIA WITH OBSTRUCTION, WITH 12/10/2016 MITESH KENNEDY MD M Ot K80.10 CALCULUS OF GALLBLADDER W CHRONIC [...] F17.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 DEPENDENCE, CHEWING TOBACCO, UN 02/02/2017 MITSEH KENNEDY MD Ot G47.33 OBSTRUCTIVE SLEEP APNEA (ADULT) (PEDIATR 02/02/2017 MITESH KENNEDY MD Ot I25.10 ATHSCL HEART DISEASE OF [place] CORONARY 02/02/2017 MITESH KENNEDY MD Ot K43.0 [...] TRUNK 02/02/2017 MITESH KENNEDY MD Ot V72.81 [id number] CARDIOVASCULAR 02/02/2017 MITESH KENNEDY MD Ot V74.8 SCREEN-BACTERIAL DIS NEC 02/02/2017 MITESH KENNEDY MD Ot 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 02/02/2017 MITESH KENNEDY MD Ot 216.5 BENIGN SHELLY SKIN TRUNK 02/02/2017 KHOA SOLIZ RESIDENTIAL PROPERTY TAX APPRAISER Ot 240.9 GOITER NOS 02/02/2017 MITESH KENNEDY [...] WITHOUT OBSTRUCTION OR 02/17/2017 MARCIA NAVAS, MITESH M Ot K43.2 INCISIONAL HERNIA WITHOUT OBSTRUCTION OR 03/01/2017 MARCIA NAVAS, MITESH M Ot K42.9 UMBILICAL HERNIA WITHOUT OBSTRUCTION OR 03/01/2017 MARCIA NAVAS, MITESH M Ot K43.2 INCISIONAL HERNIA WITHOUT OBSTRUCTION OR 09/30/2017 MARCIA NAVAS, MITESH M Ot K42.9 UMBILICAL HERNIA WITHOUT OBSTRUCTION OR 09/30/2017 MITESH KENNEDY MD Ot K43.2 INCISIONAL HERNIA WITHOUT OBSTRUCTION OR 10/01/2017 MITESH KENNEDY MD Ot K42.9 UMBILICAL HERNIA WITHOUT OBSTRUCTION OR 10/01/2017 MITESH KENNEDY MD Ot K43.2 INCISIONAL HERNIA WITHOUT OBSTRUCTION OR 10/06/2017 MITESH KENNEDY MD Ot K42.9 UMBILICAL HERNIA WITHOUT OBSTRUCTION OR 10/06/2017 MARCIA NAVAS, MITESH Witt Ot K43.2 INCISIONAL HERNIA WITHOUT OBSTRUCTION OR 10/08/2017 MITESH KENNEDY MD Ot K42.9 UMBILICAL HERNIA WITHOUT OBSTRUCTION OR 10/08/2017 MITESH KENNEDY MD Ot K43.2 INCISIONAL HERNIA WITHOUT OBSTRUCTION OR 10/12/2017 MARTÍNEZ RICHMOND, IGOR Monreal Ot I05.1 RHEUMATIC MITRAL INSUFFICIENCY 10/12/2017 IGOR SOLIZ DO Ot I10 ESSENTIAL (PRIMARY) HYPERTENSION 10/12/2017 IGOR SOLIZ DO Ot R53.83 OTHER FATIGUE 10/20/2017 IGOR SOLIZ DO Ot I05.1 RHEUMATIC MITRAL INSUFFICIENCY 10/20/2017 IGOR SOLIZ DO Ot I10 ESSENTIAL (PRIMARY) HYPERTENSION 10/20/2017 IGOR SOLIZ DO Ot R53.83 OTHER FATIGUE 10/20/2017 KAN HAINES MD Ot E78. 5 HYPERLIPIDEMIA, UNSPECIFIED 10/20/2017 KAN HAINES MD Ot G56. 00 CARPAL TUNNEL SYNDROME, UNSPECIFIED UPPE 10/20/2017 KAN HAINES MD Ot I25. 10 ATHSCL HEART DISEASE OF [place] CORONARY 10/20/2017 KAN HAINES MD Ot I65. [...] Ot I25. 10 ATHSCL HEART DISEASE OF [place] CORONARY 10/21/2017 KAN HAINES MD Ot I65. 23 OCCLUSION AND STENOSIS OF B[place]AL [place] 10/21/2017 KAN HAINES MD Ot R07. 89 OTHER CHEST PAIN 10/21/2017 KAN HAINES MD Ot Z82. 49 FAMILY HX OF ISCHEM HEART DIS AND OTH DI 10/21/2017 KAN HAINES MD Ot Z87.891 PERSONAL HISTORY OF NICOTINE DEPENDENCE 11/02/2017 IGOR SOLIZ DO Ot I05.1 RHEUMATIC MITRAL INSUFFICIENCY 11/02/2017 IGOR SOLIZ DO Ot I10 ESSENTIAL (PRIMARY) HYPERTENSION 11/02/2017 IGOR SOLIZ DO Ot R53.83 OTHER FATIGUE 11/09/2017 IGOR SOLIZ DO Ot I05.1 RHEUMATIC MITRAL INSUFFICIENCY 11/09/2017 IGOR SOLIZ DO Ot I10 ESSENTIAL (PRIMARY) HYPERTENSION 11/09/2017 IGOR SOLIZ DO Ot R53.83 OTHER FATIGUE 04/14/2018 MARCIA NAVAS, MITESH Witt Ot 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 04/14/2018 MITESH KENNEDY MD Ot 216.5 BENIGN SHELLY SKIN TRUNK 04/14/2018 MITESH KENNEDY MD Ot V72.81 [id number] CARDIOVASCULAR 04/14/2018 MITESH KENNEDY MD Ot V74.8 SCREEN-BACTERIAL DIS NEC 04/14/2018 MITESH KENNEDY MD Ot 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 04/14/2018 DAGOBERTO KENNEDY MDVIER M Ot 216.5 BENIGN SHELLY SKIN TRUNK 04/14/2018 KHOA SOLIZ RESIDENTIAL PROPERTY TAX APPRAISER Ot 240.9 GOITER NOS 04/14/2018 MARCIA NAVAS, MITESH Witt Ot 241.0 NONTOX UNINODULAR GOITER 04/14/2018 BERTIN CARTAGENA MD Ot 240.9 GOITER NOS 04/14/2018 BERTIN CARTAGENA MD Ot 786.6 CHEST SWELLING/MASS/LUMP 04/14/2018 IGOR SOLIZ DO J Ot 172.9 MALIG MELANOMA SKIN NOS 04/14/2018 IGOR SOLIZ DO Ot 793.19 OTHER NONSPECIFIC ABNORMAL FINDING OF PEDRO 04/14/2018 IGOR SOLIZ DO Ot 793.11 SOLITARY PULMONARY NODULE 04/14/2018 PATRICIA NAVAS, WOLF Magana Ot Z01.818 ENCOUNTER FOR OTHER PREPROCEDURAL EXAMIN 04/14/2018 WOLF GOMEZ MD Ot Z12. 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 04/14/2018 MARCIA NAVAS, MITESH Witt Ot 216.5 BENIGN SHELLY SKIN TRUNK 04/14/2018 KHOA SOLIZ RESIDENTIAL PROPERTY TAX APPRAISER Ot 240.9 GOITER NOS 04/14/2018 MARCIA NAVAS, MITESH Witt Ot 241.0 NONTOX UNINODULAR GOITER 04/14/2018 BERTIN CARTAGENA MD Ot 240.9 GOITER NOS 04/14/2018 BERTIN CARTAGENA MD Ot 786.6 CHEST SWELLING/MASS/LUMP 04/14/2018 IGOR SOLIZ DO Ot 172.9 MALIG MELANOMA SKIN NOS 04/14/2018 IGOR SOLIZ DO Ot 793.19 OTHER NONSPECIFIC ABNORMAL FINDING OF PEDRO 04/14/2018 IGOR SOLIZ DO Ot 793.11 SOLITARY PULMONARY NODULE 04/14/2018 WOLF GOMEZ MD Ot Z01.818 ENCOUNTER FOR OTHER PREPROCEDURAL EXAMIN 04/14/2018 PATRICIA NAVAS, OWLF Magana Ot Z12. 11 ENCOUNTER FOR SCREENING FOR MALIGNANT NE 10/25/2019 MARCIA NAVAS, MITESH Witt Ot K42.9 UMBILICAL HERNIA WITHOUT OBSTRUCTION OR 10/25/2019 MITESH KENNEDY MD Ot K43.2 INCISIONAL HERNIA WITHOUT OBSTRUCTION OR 10/25/2019 SOLIZ DO, IGOR J Ot I05.1 RHEUMATIC MITRAL INSUFFICIENCY 10/25/2019 SOLIZ DO, IGOR J Ot I10 ESSENTIAL (PRIMARY) HYPERTENSION 10/25/2019 SOLIZ DO, IGOR Monreal Ot R53.83 OTHER FATIGUE 10/30/2019 WOLF GOMEZ MD Ot Z01.818 ENCOUNTER FOR OTHER PREPROCEDURAL EXAMIN 10/30/2019 WOLF GOMEZ MD Ot Z01.818 ENCOUNTER FOR OTHER PREPROCEDURAL EXAMIN 10/30/2019 WOLF GOMEZ MD Ot Z01.818 ENCOUNTER FOR OTHER PREPROCEDURAL EXAMIN 10/30/2019 WOLF GOMEZ MD Ot Z11. 59 ENCOUNTER FOR SCREENING FOR OTHER VIRAL 10/31/2019 MARCIA NAVAS, MITESH Witt Ot K42.9 UMBILICAL HERNIA WITHOUT OBSTRUCTION OR 10/31/2019 MITESH KENNEDY MD Ot K43.2 INCISIONAL HERNIA WITHOUT OBSTRUCTION OR 10/31/2019 SOLIZ DO, IGOR J Ot I05.1 RHEUMATIC MITRAL INSUFFICIENCY 10/31/2019 SOLIZ [...] NEOPLASM OF ASCENDING COLON 11/08/2019 WOLF GOMEZ MD Ot K57. 30 DVRTCLOS OF LG INT W/O PERFORATION OR AB 11/08/2019 WOLF GOMEZ MD Ot K63. 5 POLYP OF COLON 11/08/2019 WOLF GOMEZ MD Ot N40. 0 BENIGN PROSTATIC HYPERPLASIA WITHOUT LOW 11/08/2019 WOLF GOMEZ MD Ot Z12. 11 ENCOUNTER FOR SCREENING FOR MALIGNANT NE 11/08/2019 WOLF GOMEZ MD Ot Z80. 0 FAMILY HISTORY OF MALIGNANT NEOPLASM OF 11/08/2019 WOLF GOMEZ MD Ot Z86.010 PERSONAL HISTORY OF COLONIC POLYPS 11/08/2019 MARCIA NAVAS, MITESH Witt Ot K42.9 UMBILICAL HERNIA WITHOUT OBSTRUCTION OR 11/08/2019 MITESH KENNEDY MD, Ot K43.2 INCISIONAL HERNIA WITHOUT OBSTRUCTION OR 11/08/2019 SOLIZIGOR MCCLENDON DO Ot I05.1 RHEUMATIC MITRAL INSUFFICIENCY 11/08/2019 IGOR SOLIZ DO Ot I10 ESSENTIAL (PRIMARY) HYPERTENSION 11/08/2019 SOLIZ DOIGOR Ot R53.83 OTHER FATIGUE 12/31/2019 HOWIE DO, STEFANY K Ot E03.9 HYPOTHYROIDISM, UNSPECIFIED 12/31/2019 HOWIE DO, STEFANY K Ot N20.0 CALCULUS OF KIDNEY 12/31/2019 HOWIE DO, STEFANY K Ot R10.9 UNSPECIFIED ABDOMINAL PAIN 12/31/2019 HOWIE DO, STEFANY K Ot Z79.890 HORMONE REPLACEMENT THERAPY 12/31/2019 HOWIE DO, STEFANY K Ot Z85.820 PERSONAL HISTORY OF MALIGNANT MELANOMA O 12/31/2019 HOWIE DO, STEFANY K Ot Z85.828 PERSONAL HISTORY OF OTHER MALIGNANT NEOP 12/31/2019 HOWIE DO, STEFANY K Ot Z87.891 PERSONAL HISTORY OF NICOTINE DEPENDENCE 12/31/2019 MITESH KENNEDY MD Ot K42.9 UMBILICAL HERNIA WITHOUT OBSTRUCTION OR 12/31/2019 MITESH KENNEDY MD Ot K43.2 INCISIONAL HERNIA WITHOUT OBSTRUCTION OR 12/31/2019 IGOR SOLIZ DO Ot I05.1 RHEUMATIC MITRAL INSUFFICIENCY 12/31/2019 IGOR SOLIZ DO Ot I10 ESSENTIAL (PRIMARY) HYPERTENSION 12/31/2019 SOLIZ DO, IGOR Monreal Ot R53.83 OTHER FATIGUE 01/03/2020 HOWIE DO, STEFANY K Ot E03.9 HYPOTHYROIDISM, UNSPECIFIED 01/03/2020 HOWIE DO, STEFANY K Ot N20.0 CALCULUS OF KIDNEY 01/03/2020 HOWIE DO, STEFANY K Ot R10.9 UNSPECIFIED ABDOMINAL PAIN 01/03/2020 HOWIE DO, STEFANY K Ot Z79.890 HORMONE REPLACEMENT THERAPY 01/03/2020 HOWIE DO, STEFANY K Ot Z85.820 PERSONAL HISTORY OF MALIGNANT MELANOMA O 01/03/2020 HOWIE DO, STEFANY K Ot Z85.828 PERSONAL HISTORY OF OTHER MALIGNANT NEOP 01/03/2020 HOWIE DO, STEFANY K Ot Z87.891 PERSONAL HISTORY OF NICOTINE DEPENDENCE 01/11/2020 HOWIE DO, STEFANY K Ot E03.9 HYPOTHYROIDISM, UNSPECIFIED 01/11/2020 HOWIE DO, STEFANY K Ot N20.0 CALCULUS OF KIDNEY 01/11/2020 HOWIE DO, STEFANY K Ot R10.9 UNSPECIFIED ABDOMINAL PAIN 01/11/2020 HOWIE DO, STEFANY K Ot Z79.890 HORMONE REPLACEMENT THERAPY 01/11/2020 HOWIE DO, STEFANY K Ot Z85.820 PERSONAL HISTORY OF MALIGNANT MELANOMA O 01/11/2020 HOWIE DO, STEFANY K Ot Z85.828 PERSONAL HISTORY OF OTHER MALIGNANT NEOP 01/11/2020 HOWIE DO, STEFANY K Ot Z87.891 PERSONAL HISTORY OF NICOTINE DEPENDENCE 01/16/2020 MARCIA NVAAS, MITESH Witt Ot K42.9 UMBILICAL HERNIA WITHOUT OBSTRUCTION OR 01/16/2020 MARCIA NAVAS, MITESH Witt Ot K43.2 INCISIONAL HERNIA WITHOUT OBSTRUCTION OR 01/16/2020 SOLIZ DOIGOR Ot I05.1 RHEUMATIC MITRAL INSUFFICIENCY 01/16/2020 SOLIZ DO, IGOR Monreal Ot I10 ESSENTIAL (PRIMARY) HYPERTENSION 01/16/2020 SOLIZ DO, IGOR Monreal Ot R53.83 OTHER FATIGUE 01/17/2020 SOLIZ DO, IGOR Monreal Ot K42.9 UMBILICAL HERNIA WITHOUT OBSTRUCTION OR 01/17/2020 SOLIZ DOIGOR Ot K57.30 DVRTCLOS OF LG INT W/O PERFORATION OR AB 01/17/2020 SOLIZ DO, IGOR Monreal Ot N20.0 CALCULUS OF KIDNEY 01/22/2020 MARCIA NAVAS, MITESH Witt Ot K42.9 UMBILICAL HERNIA WITHOUT OBSTRUCTION OR 01/22/2020 MARCIA NAVAS, MITESH Witt Ot K43.2 INCISIONAL HERNIA WITHOUT OBSTRUCTION OR 01/22/2020 IGOR SOLIZ DO Ot I05.1 RHEUMATIC MITRAL INSUFFICIENCY 01/22/2020 IGOR SOLIZ DO Ot I10 ESSENTIAL (PRIMARY) HYPERTENSION 01/22/2020 IGOR SOLIZ DO Ot R53.83 OTHER FATIGUE 01/22/2020 MARTÍNEZ RICHMOND, IGOR Monreal Ot K42.9 UMBILICAL HERNIA WITHOUT OBSTRUCTION OR 01/22/2020 IGOR SOLIZ DO, Ot K57.30 DVRTCLOS OF LG INT W/O PERFORATION OR AB 01/22/2020 IGOR SOLIZ DO, Ot N20.0 CALCULUS OF KIDNEY Procedures Code Description Performed By Per formed [...] Coronavirus Ab [Units/volume] in Serum Negative Negative Complete blood count (CBC) with automate d white blood cell (WBC) differential - 12/31/19 11:12 Blood leukocytes automated count (number/volume) 11.8 10*3/uL 4.3-11.0 Blood erythrocytes automated count (number/volume) 4.76 10*6/uL 4.35-5.85 Venous blood hemoglobin measurement (mass/volume) 14.9 g/dL 13.3-17.7 Blood hematocrit (volume fraction) 44 % 40-54 Automated erythrocyte mean corpuscular volume 92 [ foz_us] 80-99 Automated erythrocyte mean corpuscular h emoglobin (mass per erythrocyte) 31 pg 25-34 Automated erythrocyte mean corpuscular h emoglobin concentration measurement (mass/volume) 34 g/dL 32-36 Automated erythrocyte distribution width ratio 12. 8 % 10.0- 14.5 Automated blood platelet count (count/volume) 272 10*3/uL 130-400 Automated blood platelet mean volume measurement 10.5 [foz_us] 7.4-10.4 Automated blood neutrophils/100 leukocytes 84 % 42-75 Automated blood lymphocytes/100 leukocytes 10 % 12-44 Blood monocytes/100 leukocytes 5 % 0-12 Automated blood eosinophils/100 leukocytes 0 % 0-10 Automated blood basophils/100 leukocytes 0 % 0-10 Blood neutrophils automated count (number/volume) 10.0 10*3 1.8-7.8 Blood lymphocytes automated count (number/volume) 1.2 10*3 1.0-4.0 Blood monocytes automated count (number/volume) 0. 6 10*3 0.0-1.0 Automated eosinophil count 0.0 10*3/uL 0 .0-0.3 Automated blood basophil count (count/volume) 0.1 10*3/uL 0.0-0.1 Complete urinalysis with reflex to cultu re - 12/31/19 11:12 Urine color determination YELLOW NRG Urine clarity determination CLEAR NR G Urine pH measurement by test strip 5.5 5-9 Specific gravity of urine by test strip >= 1.016-1.022 Urine protein assay by test strip, semi-quantitative NEGATIVE NEGATIVE Urine glucose detection by automated test strip NE GATIVE NEGATIVE Erythrocytes detection in urine sediment by light micr oscopy 2+ NEGATIVE Urine ketones detection by automated test strip TR RENATA NEGATIVE Urine nitrite detection by test strip NEGATIVE NEGATIVE Urine total bilirubin detection by test strip NEGA TIVE NEGATIVE Urine urobilinogen measurement by automated test strip (mass/volume) 0.2 mg/dL < = 1.0 Urine leukocyte esterase detection by dipstick NEG ATIVE NEGATIVE Automated urine sediment erythrocyte cou nt by microscopy (number/high power field) [HPF] NRG Automated urine sediment leukocyte count by microscopy (number/high power field) NONE NRG Bacteria detection in urine sediment by light microsco py NEGATIVE NRG Squamous epithelial cells detection in u rine sediment by light microscopy NONE NRG Crystals detection in urine sediment by light microsco py NONE NRG Casts detection in urine sediment by light microscopy NONE NRG Mucus detection in urine sediment by light microscopy NEGATIVE NRG Complete urinalysis with reflex to culture NO NRG Comprehensive metabolic panel - 12/31/19 11:12 Serum or plasma sodium measurement (moles/volume) 141 mmol/L 135-145 Serum or plasma potassium measurement (moles/volume) 4.8 mmol/L 3.6-5.0 Serum or plasma chloride measurement (moles/volume) 107 mmol/L 98-107 Carbon dioxide 23 mmol/L 21-32 Serum or plasma anion gap determination (moles/volume) 11 mmol/L 5-14 Serum or plasma urea nitrogen measurement (mass/volume ) 19 mg/dL 7-18 Serum or plasma creatinine measurement (mass/volume) 0.87 mg/dL 0.60-1.30 Serum or plasma urea nitrogen/creatinine mass ratio 22 NRG Serum or plasma creatinine measurement w ith calculation of estimated glomerular filtration rate > NRG Serum or plasma glucose measurement (mass/volume) 120 mg/dL 70-105 Serum or plasma calcium measurement (mass/volume) 9.4 mg/dL 8.5-10.1 Serum or plasma total bilirubin measurement (mass/volu me) 0.8 mg/dL 0.1-1.0 Serum or plasma alkaline phosphatase marsha surement (enzymatic activity/volume) 94 U/L 40-136 Serum or plasma aspartate aminotransfera se measurement (enzymatic activity/volume) 18 U/L 5-34 Serum or plasma alanine aminotransferase measurement (enzymatic activity/volume) 35 U/L 0-55 Serum or plasma protein measurement (mass/volume) 6.8 g/dL 6.4-8.2 Serum or plasma albumin measurement (mass/volume) 4.4 g/dL 3.2-4.5 CALCIUM CORRECTED 9.1 mg/dL 8.5-10.1 Urine drug screening test - 12/31/19 11: 12 Urine phencyclidine detection by screening method NEGATIVE NEGATIVE Urine benzodiazepines detection by screening method NEGATIVE NEGATIVE Urine cocaine detection NEGATIVE NEGATI VE Urine amphetamines detection by screening method N EGATIVE NEGATIVE Urine methamphetamine detection by screening method NEGATIVE NEGATIVE Urine cannabinoids detection by screening method N EGATIVE NEGATIVE Urine opiates detection by screening method NEGATI VE NEGATIVE Urine barbiturates detection NEGATIVE N EGATIVE Screening urine tricyclic antidepressants detection NEGATIVE NEGATIVE Urine methadone detection by screening method NEGA TIVE NEGATIVE Urine oxycodone detection NEGATIVE NEGA TIVE Urine propoxyphene detection NEGATIVE N EGATIVE Magnesium - 12/31/19 11:12 Magnesium 2.0 mg/dL 1.6-2.4 Serum or plasma amylase measurement (enz ymatic activity/volume) - 12/31/19 11:12 Serum or plasma amylase measurement (enzymatic activit y/volume) 51 U/L 25-125 Lipase - 12/31/19 11:12 Lipase 11 U/L 8-78 Encounters ACCT No. Visit Date/Time Discharge Status Pt. Type Provider Facility Loc./Unit Complaint [id number] 04/26/2014 15:14:34 04/26/2014 23:59: 59 CLS Outpatient Elizabeth Pimentel [id number] 01/25/2020 12:00:00 020 23:59:59 CLS Preadmit KAN HAINES MD [facility] CARD CHEST PAIN [id number] 01/16/2020 11:48:00 23:59:59 CLS Outpatient IGOR SOLIZ DO [facility] RAD N20.0 [id number] 12/31/2019 10:56:00 13:05:00 DIS Emergency STEFANY DENISE DO [facility] ER L SIDE PAIN [id number] 11/03/2019 07:21:00 09:55:00 DIS Outpatient WOLF GOMEZ MD [facility] ENDO COLON POLYPS [id number] 10/30/2019 08:58:00 16:12:00 DIS Outpatient WOLF GOMEZ MD [facility] PREOP COLONOSCOPY [id number] 10/20/2017 06:53:00 018 13:20:00 DIS Outpatient KAN HAINES MD [facility] CATH ABN STRESS TEST,DYSPNEA ,FATIGUE [id number] 10/08/2017 06:42:00 018 23:59:59 CLS Outpatient IGOR SOLIZ DO [facility] CARD FATIGUE [id number] 12/03/2016 10:13:00 017 16:45:00 DIS Outpatient MITESH KENNEDY MD [facility] SDC STONES, RECURRENT IRRE DUCIBLE VENTRAL HERNIA [id number] 11/30/2016 09:41:00 017 10:07:00 DIS Outpatient MITESH KENNEDY MD [facility] PREOP RECURRENT VENTRAL HER MILO [id number] 11/27/2016 06:49:00 017 23:59:59 CLS Outpatient MITESH KENNEDY MD [facility] RAD INCARCERATED RECURRENT VENTRAL HERNIA [id number] 04/13/2016 02:11:00 016 05:50:00 DIS Emergency NICOLE PAEZ MD [facility] ER AB PAIN [id number] 05/03/2015 07:21:00 015 10:35:00 DIS Outpatient WOLF GOMEZ MD [facility] SDC SCREENING [id number] 05/01/2015 05:42:00 015 23:59:59 CLS Outpatient WOLF GOMEZ MD [facility] PREOP SCREENING COLONSCOPY [id number] 05/22/2014 11:23:00 014 23:59:59 CLS Outpatient IGOR SOLIZ DO [facility] RAD PULMONARY NODUL E [id number] 11/21/2013 13:19:00 014 23:59:59 CLS Outpatient IGOR SOLIZ DO [facility] RAD MALIGNANT MELAN CASSY [id number] 08/09/2013 11:57:00 014 18:52:00 DIS Outpatient IGOR SOLIZ DO [facility] CATH CP/HEART CATH [id number] 01/20/2013 11:11:00 013 23:59:59 CLS Outpatient BERTIN CARTAGENA MD [facility] RAD CHEST MASS, GOI TER [id number] 12/13/2012 06:51:00 013 23:59:59 CLS Outpatient MITESH KENNEDY MD [facility] RAD RIGHT THYROID NODULE [id number] 11/25/2012 15:03:00 23:59:59 CLS Outpatient KHOA SOLIZ [facility] RAD THYROIDMEGALY [id number] 11/16/2012 09:29:00 013 23:59:59 CLS Outpatient MITESH KENNEDY MD [facility] M[place] [id number] 11/09/2012 12:56:00 013 23:59:59 CLS Outpatient MITESH KENNEDY MD [facility] PREOP MELANOMA [id number] 05/22/2014 11:29:00 Document Registration [id number] 05/03/2012 07:50:00 Document Registration [id number] 04/27/2012 07:54:00 Document Registration [id number] 11/03/2011 20:05:00 Document Registration [id number] 09/08/2011 19:56:00 Document Registration [id number] 10/31/2010 07:50:00 Document Registration
--- NOTE | 2020-02-06 10:54 | NUR ---
Recieved report from NURIA Nye to assume pt care at this time.
[2020-02-06 11:02] LABS: ALBUMIN 3.9 GM/DL (3.2-4.5); CHLORIDE 109 MMOL/L (98-107); POTASSIUM 4.5 MMOL/L (3.6-5.0); SODIUM 139 MMOL/L (135-145)
[2020-02-06 11:03] LABS: CALCIUM 8.4 MG/DL (8.5-10.1)
[2020-02-06 11:04] LABS: GLUCOSE 113 MG/DL (70-105)
[2020-02-06 11:05] LABS: TOTAL PROTEIN 6.1 GM/DL (6.4-8.2)
[2020-02-06 11:06] LABS: BILIRUBIN,TOTAL 0.5 MG/DL (0.1-1.0); CARBON DIOXIDE 22 MMOL/L (21-32)
[2020-02-06 11:08] LABS: ALKALINE PHOSPHATASE 79 U/L (40-136); CREATININE SERUM 0.75 MG/DL (0.60-1.30); GFR ESTIMATED > 60
[2020-02-06 11:09] LABS: BUN/CREATININE RATIO 23
[2020-02-06 11:11] LABS: ALANINE AMINOTRANSFERASE 39 U/L (0-55); LIPASE 15 U/L (8-78)
[2020-02-06 11:35] LABS: BILIRUBIN,URINE NEGATIVE (NEGATIVE); CLARITY,URINE SL CLOUDY; COLOR,URINE YELLOW; GLUCOSE, URINE (UA) NEGATIVE (NEGATIVE); KETONES,URINE NEGATIVE (NEGATIVE); LEUKOCYTE ESTERASE ,URINE NEGATIVE (NEGATIVE); NITRITE,URINE NEGATIVE (NEGATIVE); PROTEIN,URINE NEGATIVE (NEGATIVE)
[2020-02-06] MEDS ORDERED: HYDR-3812 PO (11:38)
[2020-02-06] MEDS ORDERED: SULF1TAB35 PO (11:38)
[2020-02-06] MEDS ORDERED: ONDA4TAB11 PO (11:38)
--- NOTE | 2020-02-06 11:38 | ED Abdominal Pain ---
General Chief Complaint: Back Problems Stated Complaint: POSSIBLE KIDNEY STONE Nursing Triage Note: PT CO OF L SIDE KIDNEY PAIN FROM POSSIBLE STONE. SUDDEN ONSET AT APPROX 0300 THIS AM. PT STATES HAS HAD RECENT X-RAY Sepsis Screen: No Definite Risk Source of Information: Patient Exam Limitations: No Limitations History of Present Illness Date Seen by Provider: Feb 06, 2020 Time Seen by Provider: 09:55 Initial Comments This patient has a known history of a left kidney stone. He had recent imaging with x-ray and CT scan showing stone in the left kidney that and not distended into the ureter yet. This morning he developed sudden pain in the left abdomen which she presumed to be from the kidney stone. He had associated nausea. He denies any fevers. He has not yet followed up with a urologist. Allergies and Home Medications Allergies Coded Allergies: No Known Drug Allergies (Verified , 10/27/19) Home Medications Hydrocodone/Acetaminophen 1 Each Tablet, 1-2 EACH PO Q6H PRN for PAIN-MODERATE (5-7) Prescribed by: NICOLE OCHOA on 02/06/20 1140 Levothyroxine Sodium 25 Mcg Tablet, 25 MCG PO DAILY, (Reported) Ondansetron 4 Mg Tab.rapdis, 4 MG PO Q4H PRN for NAUSEA/VOMITING Prescribed by: NICOLE OCHOA on 02/06/20 1138 Sulfamethoxazole/Trimethoprim 1 Each Tablet, 1 EACH PO BID Prescribed by: NICOLE OCHOA on 02/06/20 1138 Patient Home Medication List Home Medication List Reviewed: Yes Review of Systems Review of Systems Constitutional: no symptoms reported EENTM: No Symptoms Reported Respiratory: No Symptoms Reported Cardiovascular: No Symptoms Reported Gastrointestinal: See HPI Genitourinary: See HPI Musculoskeletal: no symptoms reported Skin: no symptoms reported Psychiatric/Neurological: No Symptoms Reported Endocrine: No Symptoms Reported Past Seggaxt-Zdrfpf-Vjisvm Hx Past Med/Social Hx: Reviewed Nursing Past Med/Soc Hx Patient Social History Alcohol Use: Rarely Uses Number of Drinks Today: AA Alcohol Beverage of Choice: Beer Recreational Drug Use: No Smoking Status: Former Smoker Type Used: Cigarettes, Smokeless Tobacco Former Smoker, Quit: Jun 21, 2005 2nd Hand Smoke Exposure: No Recent Foreign Travel: No Contact w/Someone Who Travel: No Recent Infectious Disease Expo: No Recent Hopitalizations: No Physical Abuse: No Sexual Abuse: No Immunizations Up To Date Tetanus Booster (TDap): Unknown PED Vaccines UTD: Yes Date of Influenza Vaccine: Feb 27, 2015 Seasonal Allergies Seasonal Allergies: Yes (mild) Past Medical History Surgeries: Yes (SEVERAL ON LEG FOR BROKEN BONE CHILD, MELANOMA REMOVAL, HERNIA-UMBILICAL) Abdominal, Gallbladder, Orthopedic, Thyroidectomy Respiratory: Yes Sleep Apnea Currently Using CPAP: No Currently Using BIPAP: No Cardiac: Yes Coronary Artery Disease Neurological: No Reproductive Disorders: No Sexually Transmitted Disease: No HIV/AIDS: No Genitourinary: Yes Kidney Stones Gastrointestinal: Yes (UMBILICAL HERNIA REPAIR) Abdominal Hernia, Diverticulosis, Polyps Musculoskeletal: Yes Arthritis, Fractures Endocrine: Yes (partial thyroidectomy) Hypothyroidsim HEENT: Yes (GLASSES) Loss of Vision: Denies Hearing Impairment: Denies Cancer: Yes Skin, Melanoma What Type of Treatment Did You: Surgical Intervention Psychosocial: No Integumentary: No Blood Disorders: No Adverse Reaction/Blood Tranf: No (N/A) Family Medical History PSH: -COLONOSCOPIES--POLYPECTOMIES Physical Exam Vital Signs Vital Signs - First Documented 02/06/20 09:40 Temp 36.4 Pulse 73 Resp 18 B/P (MAP) 115/73 (87) Pulse Ox 97 Capillary Refill : Less Than 3 Seconds Height/Weight/BMI Height: 6'1.00" Weight: 237lbs. 5.0oz. 107.444582fu; 31.00 BMI Method:Stated General Appearance: WD/WN, no apparent distress HEENT: normal ENT inspection Neck: normal inspection Respiratory: lungs clear, normal breath sounds, no respiratory distress Cardiovascular: regular rate, rhythm, no edema, no murmur Gastrointestinal: normal bowel sounds, soft, tenderness (Mild, left-sided) Extremities: normal inspection, no pedal edema Neurologic/Psychiatric: keno attendant II-XII nml as tested, no motor/sensory deficits, alert, normal mood/affect, oriented x 3 Skin: normal color, warm/dry Progress/Results/Core Measures Results/Orders Lab Results Laboratory Tests Test 02/06/20 10:00 02/06/20 10:46 02/06/20 11:30 Range/Units White Blood Count 9.1 4.3-11.0 10^3/uL Red Blood Count 5.11 4.35-5.85 10^6/uL Hemoglobin 15.5 13.3-17.7 G/DL Hematocrit 46 40-54 % Mean Corpuscular Volume 91 80-99 FL Mean Corpuscular Hemoglobin 30 25-34 PG Mean Corpuscular Hemoglobin Concent 34 32-36 G/DL Red Cell Distribution Width 12.8 10.0-14.5 % Platelet Count 276 130-400 10^3/uL Mean Platelet Volume 10.6 H 7.4-10.4 FL Neutrophils (%) (Auto) 79 H 42-75 % Lymphocytes (%) (Auto) 13 12-44 % Monocytes (%) (Auto) 7 0-12 % Eosinophils (%) (Auto) 1 0-10 % Basophils (%) (Auto) 0 0-10 % Neutrophils # (Auto) 7.2 1.8-7.8 X 10^3 Lymphocytes # (Auto) 1.2 1.0-4.0 X 10^3 Monocytes # (Auto) 0.6 0.0-1.0 X 10^3 Eosinophils # (Auto) 0.1 0.0-0.3 10^3/uL Basophils # (Auto) 0.0 0.0-0.1 10^3/uL Sodium Level 139 135-145 MMOL/L Potassium Level 4.5 3.6-5.0 MMOL/L Chloride Level 109 H 98-107 MMOL/L Carbon Dioxide Level 22 21-32 MMOL/L Anion Gap 8 5-14 MMOL/L Blood Urea Nitrogen 17 7-18 MG/DL Creatinine 0.75 0.60-1.30 MG/DL Estimat Glomerular Filtration Rate > 60 BUN/Creatinine Ratio 23 Glucose Level 113 H 70-105 MG/DL Calcium Level 8.4 L 8.5-10.1 MG/DL Corrected Calcium 8.5 8.5-10.1 MG/DL Total Bilirubin 0.5 0.1-1.0 MG/DL Aspartate Amino Transf (AST/SGOT) 20 5-34 U/L Alanine Aminotransferase (ALT/SGPT) 39 0-55 U/L Alkaline Phosphatase 79 40-136 U/L Total Protein 6.1 L 6.4-8.2 GM/DL Albumin 3.9 3.2-4.5 GM/DL Lipase 15 8-78 U/L Urine Color YELLOW Urine Clarity SL CLOUDY Urine pH 6.0 5-9 Urine Specific Tolley 1.020 1.016-1.022 Urine Protein NEGATIVE NEGATIVE Urine Glucose (UA) NEGATIVE NEGATIVE Urine Ketones NEGATIVE NEGATIVE Urine Nitrite NEGATIVE NEGATIVE Urine Bilirubin NEGATIVE NEGATIVE Urine Urobilinogen 0.2 < = 1.0 MG/DL Urine Leukocyte Esterase NEGATIVE NEGATIVE Urine RBC (Auto) 2+ H NEGATIVE Urine RBC 50-100 H /HPF Urine WBC RARE /HPF Urine Squamous Epithelial Cells NONE /HPF Urine Crystals PRESENT H /LPF Urine Amorphous Sediment RARE SHELLY URATES H /LPF Urine Bacteria NEGATIVE /HPF Urine Casts NONE /LPF Urine Mucus MODERATE H /LPF Urine Culture Indicated NO My Orders Orders - NICOLE PAEZ MD Cbc With Automated Diff (02/06/20 09:55) Ua Culture If Indicated (02/06/20 09:55) Ed Iv/Invasive Line Start (02/06/20 09:55) Comprehensive Metabolic Panel (02/06/20 10:03) Lipase (02/06/20 10:03) Abdomen/Kub 1view (02/06/20 10:03) Ketorolac Injection (Toradol Injection) (02/06/20 10:15) Ondansetron Injection (Zofran Injectio (02/06/20 10:15) Ns Iv 1000 Ml (Sodium Chloride 0.9%) (02/06/20 10:03) Medications Given in ED Current Medications Medications Dose Ordered Sig/Parag Route Start Time Stop Time Status Last Admin Dose Admin Ketorolac Tromethamine 15 mg ONCE ONCE IVP 02/06/20 10:15 02/06/20 10:16 DC 02/06/20 10:24 15 MG Ondansetron HCl 8 mg ONCE ONCE IVP 02/06/20 10:15 02/06/20 10:16 DC 02/06/20 10:25 8 MG Vital Signs/I&O 02/06/20 02/06/20 09:40 11:49 Temp 36.4 36.4 Pulse 73 59 Resp 18 18 B/P (MAP) 115/73 (87) 131/60 (87) Pulse Ox 97 96 Blood Pressure Mean: 87 Progress Progress Note : Progress Note Patient was treated with Toradol, Zofran, and IV fluids. The stone appears to have migrated into the proximal ureter based on KUB obtained today with comparison to prior. Case was discussed with Dr. Hedrick. He would like to see the patient in his office tomorrow so that arrangements can be made for lithotripsy next week. Patient is agreeable. Diagnostic Imaging Diagonstic Imaging: Xray Plain Films/CT/US/NM/MRI: abdomen, pelvis Comments X-ray viewed by me and compared with prior. Report reviewed. See report below: NAME: [facility] REC#: [id number] PT STATUS: DEP ER : 1950 PHYSICIAN: NICOLE PAEZ MD ADMIT DATE: 02/06/20/ER Signed Date of Exam:02/06/20 ABDOMEN/KUB 1VIEW EXAMINATION: Supine abdomen at 10:38 AM. INDICATION: Left-sided pain. FINDINGS: The prior exam of 01/16/2020 noted an 8 mm calculus overlying the left renal contour. In the interval since the prior exam, the calculus has changed in position and now seems to be overlying the proximal left ureter. I suspect ithe calculus may be producing partial obstruction of the left collecting system. If further study is desired, then a CT of the abdomen and pelvis would be recommended. No other pathological calcification is noted. The overall appearance of the abdomen is otherwise stable. IMPRESSION: The calculus overlying the left kidney seen on the prior exam now appears to overlie the proximal left ureter. This calculus may be producing partial obstruction of the left collecting system. Recommendations as above. Dictated by: Dictated on workstation # [id number] Dict: 02/06/20 1034 Trans: 02/06/201955 [id number] Interpreted by: JORDIN TURPIN MD Electronically signed by: JORDIN TURPIN MD 02/06/201955 Departure Impression Primary Impression: Left ureteral stone Disposition: 01 HOME, SELF-CARE Condition: Improved Departure-Patient Inst. Decision time for Depature: 11:33 Referrals: IGOR SOLIZ DO (PCP/Family) Primary Care Physician ODETTE HEDRICK MD Patient Instructions: Kidney Stones in Adults Add. Discharge Instructions: Drink plenty of water. For nausea use Zofran (ondansetron) as prescribed. Complete your antibiotics as prescribed to prevent infection. Use hydrocodone as prescribed for pain. Follow-up with Dr. Hedrick tomorrow in his clinic at 1:00. Please call ahead of time to confirm the appointment time and provide any further information they may need. The lithotripsy machine will be in [place] next Wednesday. Dr. Hedrick plans to treat your kidney stone at that time. In the meantime, return to care if you have worsening symptoms that are not adequately treated with the medications provided. All discharge instructions reviewed with patient and/or family. Voiced u nderstanding. Scripts Sulfamethoxazole/Trimethoprim (Bactrim Ds Tablet) 1 Each Tablet 1 EACH PO BID, #14 TAB Prov: NICOLE PAEZ MD 02/06/20 Ondansetron (Ondansetron Odt) 4 Mg Tab.rapdis 4 MG PO Q4H PRN for NAUSEA/VOMITING, #10 TAB 1 Refill Prov: NICOLE PAEZ MD 02/06/20 Hydrocodone/Acetaminophen (Hydrocodone-Acetamin 5-325 mg) 1 Each Tablet 1-2 EACH PO Q6H PRN for PAIN-MODERATE (5-7), #20 TAB Prov: NICOLE PAEZ MD 02/06/20 Copy Copies To 1: ODETTE HEDRICK MD Copies To 2: IGOR SOLIZ JOSHUA T MD Feb 06, 2020 11:38
[2020-02-06 11:47] LABS: AMORPHOUS SEDIMENT,UR RARE AMOR URATES /LPF; BACTERIA,URINE NEGATIVE /HPF; RBC,URINE 50-100 /HPF; WBC,URINE RARE /HPF
[2020-02-06 11:49] VITALS: BP 131/60
== END 2020-02-06 11:49 | disposition home or self-care (01) ==
LOC: ER 09:35
DX: N20.1 Calculus of ureter (principal); E03.9 Hypothyroidism, unspecified; Z79.890 Hormone replacement therapy; Z85.820 Personal history of malignant melanoma of skin; Z87.891 Personal history of nicotine dependence
CPT/HCPCS: 36415; 74018; 80053; 81000; 83690; 85025

== ENCOUNTER → 2020-02-07 | Outpatient (CLI) | payer MEDICARE, OTHER ==
[~2020-02-07] MED LIST changes: +HYDR-3812 PO; +ONDA4TAB11 PO; +SULF1TAB35 PO
--- NOTE | 2020-02-08 15:31 | Diagnostic Imaging Report ---
NAME: Kane Rios. : 1950. EXAMINATION: KUB on 02/07/2020 at 12:30 PM. INDICATION: Kidney stone. COMPARISON: Correlation is made with the prior radiograph from one day earlier. FINDINGS: The calcific density in the distribution of the proximal left ureter appears unchanged in position. No definite renal calculi are seen. Pelvic calcifications likely represent phleboliths. The bowel loops are unremarkable. IMPRESSION: Proximal left ureteric calculus, similar in position to the examination of one day earlier. Dictated by: Dictated on workstation # [id number]
== END ==
LOC: RAD 12:14
PROVIDERS: ATTEND Urology
DX: N20.2 Calculus of kidney with calculus of ureter (principal); Z20.828 Contact with and (suspected) exposure to other viral communicable diseases
CPT/HCPCS: 74018

== ENCOUNTER 2020-02-12 05:44 | Outpatient (CLI) | payer MEDICARE, OTHER ==
[~2020-02-12] VITALS: Ht 185 cm; Wt 109.0 kg
[2020-02-13] MEDS ORDERED: TRM50T PO (13:24)
[2020-02-13] MEDS ORDERED: NITR-65 PO (13:24)
[2020-02-13] MEDS ORDERED: TMSL.4C PO (13:24)
== END 2020-02-12 14:46 | disposition home or self-care (01) ==
LOC: PREOP 05:44
PROVIDERS: ATTEND Urology
DX: Z01.818 Encounter for other preprocedural examination (principal)

== ENCOUNTER 2020-02-13 09:47 | Day surgery (SDC) | payer MEDICARE, OTHER ==
[~2020-02-13] VITALS: Ht 185 cm; Wt 109.0 kg
[2020-02-13] VITALS (11 sets, daily range): BP systolic 91–118; BP diastolic 46–75
[2020-02-13] MEDS ORDERED: FAMOTIDINE 20MG/2ML IV (PEPCID) IV ONE (10:30)
[2020-02-13] MEDS ORDERED: ONDANSETRON 4 MG/2 ML (SDV) Z0FRAN IV ONE (10:30)
[2020-02-13] MEDS ORDERED: LACTATED RINGERS 1,000 ML IV PRN (10:35)
--- NOTE | 2020-02-13 10:44 | Diagnostic Imaging Report ---
INDICATION: Preoperative evaluation for ESWL. COMPARISON: 02/07/2020. FINDINGS: Two supine radiographic views of the abdomen and pelvis were obtained. Again identified is rounded extraosseous calcification projecting over the left psoas muscle at the level of the L2-L3 intervertebral disc space. This is stable when compared to 02/07/2020. No unexpected radiopaque foreign bodies are seen. Small bowel loops are nondistended. There is no large collection of free intraperitoneal air. IMPRESSION: 1. Redemonstration of left-sided calculus presumably within the proximal ureter. Dictated by: Dictated on workstation # [id number]
[2020-02-13] MEDS ORDERED: cefTRIAXone FOR IV USE 1,000 MG in WATER (STERILE) FOR INJECTION 10 ML IV ONE (10:45)
--- NOTE | 2020-02-13 10:50 | Progress Note-Pre Operative ---
Pre-Operative Progress Note H&P Reviewed The H&P was reviewed, patient examined and no changes noted. Date Seen by Provider: Feb 13, 2020 Time Seen by Provider: 10:50 Date H&P Reviewed: Feb 13, 2020 Time H&P Reviewed: 10:50 Pre-Operative Diagnosis: LT PROXIMAL URETERAL STONE ODETTE HEDRICK MD Feb 13, 2020 10:50
[2020-02-13] MEDS ORDERED: WATER (STERILE) FOR INJECTION 10 ML ONE (10:52)
[2020-02-13] MEDS ORDERED: cefTRIAXone 1,000 MG IV (ROCEPHIN) VIAL ONE (10:52)
[2020-02-13] MEDS ORDERED: MIDAZOLAM 2 MG/2 ML (VERSED) VIAL ONE (10:53)
[2020-02-13] MEDS ORDERED: LIDOCAINE PF 2% 5 ML (XYLOCAINE) VIAL ONE (10:53)
[2020-02-13] MEDS ORDERED: proPOfol 200 MG/20 ML (DIPRIVAN) VIAL IV ONE (10:53)
[2020-02-13] MEDS ORDERED: fentaNYL INJECTION 100 MCG/2 ML AMP ONE (10:53)
[2020-02-13] MEDS ORDERED: ONDANSETRON 4 MG/2 ML (SDV) Z0FRAN ONE (10:54)
[2020-02-13] MEDS ORDERED: SEVOFLURANE (ULTANE) 15 ML INHAL SOLN ONE ×2 (10:55→11:59)
--- NOTE | 2020-02-13 11:41 | Progress Note-Post Operative ---
Post-Operative Progess Note Surgeon (s)/Fancy Sewer (s) Surgeon ODETTE HEDRICK MD Fancy Sewer: NONE Pre-Operative Diagnosis LT PROXIMAL URETERAL STONE Post-Operative Diagnosis SAME Procedure & Operative Findings Date of Procedure 02/13/20 Procedure Performed/Findings LT ESWL Anesthesia Type GENERAL Estimated Blood Loss Estimated blood loss (mL): NONE Specimens/Packing Specimens Removed NONE Packing: NONE ODETTE HEDRICK MD Feb 13, 2020 11:41
--- NOTE | 2020-02-13 11:43 | Discharge Inst-Urology ---
Discharge Inst-Urology Reconcile Patient Problems Problems Reviewed?: Yes Final Diagnosis LT PROXIMAL URETERAL STONE Patient Instructions/Follow Up Plan/Assessment/Instructions Please make appointment to been seen in office Monday 02/26, KUB prior to it KUB on way home Post ESWL instructions Increase oral fluids for 48 hours and then as needed. Diet and Activity as tolerated. If questions or concerns contact your physician Or seek help at emergency department. ODETTE HEDRICK MD Feb 13, 2020 11:43
[2020-02-13] MEDS ORDERED: FUROSEMIDE 40 MG/4 ML INJ (LASIX) ONE (11:59)
[2020-02-13] MEDS ORDERED: KETOROLAC 30 MG/ML VIAL ONE (12:19)
--- NOTE | 2020-02-13 13:18 | Anesthesia-General Post-Op ---
General Patient Condition Mental Status/LOC: Same as Preop Cardiovascular: Satisfactory Nausea/Vomiting: Absent Respiratory: Satisfactory Pain: Controlled Complications: Absent Post Op Complications Complications None Follow Up Care/Instructions Patient Instructions None needed. Anesthesia/Patient Condition Patient Condition Patient is doing well, no complaints, stable vital signs, no apparent adverse anesthesia problems. No complications reported per nursing. SERAFIN BAUTISTA CRNA Feb 13, 2020 13:18
[2020-02-13] MEDS ORDERED: TRM50T PO (13:24)
[2020-02-13] MEDS ORDERED: TMSL.4C PO (13:24)
[2020-02-13] MEDS ORDERED: NITR-65 PO (13:24)
--- NOTE | 2020-02-13 14:04 | Diagnostic Imaging Report ---
INDICATION: Status post ESWL. COMPARISON: Earlier this same day. FINDINGS: A single supine frontal radiographic view of the abdomen was obtained and again demonstrates an 8 mm calculus projecting over the proximal left ureter at the level of the L2-L3 intervertebral disc space. This is stable in size and position compared to earlier this same day. The small bowel loops remain nondistended. No new unexpected extraosseous calcifications or radiopaque foreign bodies are seen. IMPRESSION: Stable left ureteral calculus. Dictated by: Dictated on workstation # [id number]
--- NOTE | 2020-02-13 20:10 | OPERATIVE REPORT ---
DATE OF SERVICE: 02/13/2020 PREOPERATIVE DIAGNOSIS: Left proximal ureteral stone. POSTOPERATIVE DIAGNOSIS: Left proximal ureteral stone. OPERATION PERFORMED: Left ESWL. SURGEON: Radu Hedrick MD ANESTHESIA: General. COMPLICATIONS: None. DESCRIPTION OF PROCEDURE: Under satisfactory general anesthesia, the patient in supine position on the ESWL table, the left proximal ureteral stone was localized. Shocks were delivered at kV of 6. Total of 3000 shocks completely fragmented the stone. The patient received 40 mg of Lasix, 30 mg of Toradol IV at the end of the procedure. He tolerated the procedure and anesthesia well and was sent to recovery room in stable condition. Job ID: [id number] DocumentID: [id number] Dictated Date: 02/13/2020 12:03:42 Mattress Finisher Date: 02/13/2020 20:09:36 Dictated By: RADU HEDRICK MD
== END 2020-02-13 14:15 | disposition home or self-care (01) ==
LOC: SDC 09:47
PROVIDERS: ATTEND Urology
DX: N20.1 Calculus of ureter (principal); E03.9 Hypothyroidism, unspecified; N40.0 Benign prostatic hyperplasia without lower urinary tract symptoms; N52.9 Male erectile dysfunction, unspecified; G47.33 Obstructive sleep apnea (adult) (pediatric); I25.10 Atherosclerotic heart disease of native coronary artery without angina pectoris; M06.9 Rheumatoid arthritis, unspecified; Z85.820 Personal history of malignant melanoma of skin; Z87.891 Personal history of nicotine dependence; Z79.890 Hormone replacement therapy; Z87.19 Personal history of other diseases of the digestive system; Z11.2 Encounter for screening for other bacterial diseases
CPT/HCPCS: 74018; 87081

== ENCOUNTER → 2020-02-22 | Outpatient (CLI) | payer MEDICARE, OTHER ==
[~2020-02-22] MED LIST changes: -HYDR-3812 PO; +NITR-65 PO; +TMSL.4C PO; +TRM50T PO
--- NOTE | 2020-02-22 16:11 | Diagnostic Imaging Report ---
INDICATION: Status post ESWL. Follow-up calculus. COMPARISON: 02/13/2020. EXAMINATION: Single supine radiographic view of the abdomen was obtained. FINDINGS: Again demonstrated is a 7-8 mm calculus projecting over the superior margins of the left psoas muscle, presumably within the high left ureter. No unexpected radiopaque foreign body is seen. Small bowel loops are nondistended. There is no large collection of free intraperitoneal air. Osseous structures show no gross acute abnormality. IMPRESSION:. Stable appearing left ureteral calculus. Dictated by: Dictated on workstation # [id number]
== END ==
LOC: RAD 14:30
PROVIDERS: ATTEND Urology
DX: N20.1 Calculus of ureter (principal); Z20.828 Contact with and (suspected) exposure to other viral communicable diseases
CPT/HCPCS: 74018

== ENCOUNTER 2020-03-11 14:45 | Outpatient (CLI) | payer MEDICARE, OTHER ==
[~2020-03-11] VITALS: Ht 185.5 cm; Wt 109.1 kg
[~2020-03-11 14:45] MED LIST changes: -PHEN-640 PO; -TRAM50TA3 PO
[2020-03-12] MEDS ORDERED: PHEN-640 PO ×2 (11:51)
[2020-03-12] MEDS ORDERED: SULF1TAB35 PO ×2 (11:51)
[2020-03-12] MEDS ORDERED: TRAM50TA3 PO ×2 (11:51)
[2020-03-12] MEDS ORDERED: TMSL.4C PO ×2 (11:51)
== END 2020-03-11 15:09 | disposition home or self-care (01) ==
LOC: PREOP 14:45
PROVIDERS: ATTEND Urology
DX: Z01.818 Encounter for other preprocedural examination (principal)

== ENCOUNTER → 2020-03-11 | Outpatient (CLI) | payer MEDICARE, OTHER ==
[~2020-03-11] MED LIST changes: +PHEN-640 PO; +TRAM50TA3 PO
--- NOTE | 2020-03-11 14:56 | Diagnostic Imaging Report ---
INDICATION: Left renal calculus. Followup. COMPARISON: 02/22/2020. FINDINGS: A single frontal radiographic view of the abdomen was obtained and again demonstrates a 7-8 mm calculus projecting over the left psoas muscle at the level of the L2-L3 intervertebral disc space level. No unexpected radiopaque foreign bodies are seen. The small bowel loops are nondistended. There is no large collection of free intraperitoneal air. IMPRESSION: 1. Stable appearing left ureteral calculus. 2. Nonobstructed small bowel gas pattern. Dictated by: Dictated on workstation # [id number]
== END ==
LOC: RAD 13:42
PROVIDERS: ATTEND Urology
DX: N20.2 Calculus of kidney with calculus of ureter (principal)
CPT/HCPCS: 74018

== ENCOUNTER 2020-03-12 08:21 | Day surgery (SDC) | payer MEDICARE, OTHER ==
[2020-03-12] VITALS (10 sets, daily range): BP systolic 102–116; BP diastolic 54–87
[~2020-03-12] VITALS: Ht 180 cm; Wt 112.7 kg
[2020-03-12] MEDS ORDERED: cefTRIAXone FOR IV USE 1,000 MG in WATER (STERILE) FOR INJECTION 10 ML IV ONE (08:30)
[2020-03-12] MEDS ORDERED: MIDAZOLAM 2 MG/2 ML (VERSED) VIAL ONE (08:42)
[2020-03-12] MEDS ORDERED: proPOfol 200 MG/20 ML (DIPRIVAN) VIAL IV ONE (08:42)
[2020-03-12] MEDS ORDERED: ONDANSETRON 4 MG/2 ML (SDV) Z0FRAN ONE (08:42)
[2020-03-12] MEDS ORDERED: LIDOCAINE PF 2% 5 ML (XYLOCAINE) VIAL ONE (08:42)
[2020-03-12] MEDS ORDERED: KETOROLAC 30 MG/ML VIAL ONE (08:43)
[2020-03-12] MEDS ORDERED: SEVOFLURANE (ULTANE) 15 ML INHAL SOLN ONE ×3 (08:43→09:59)
[2020-03-12] MEDS ORDERED: fentaNYL INJECTION 100 MCG/2 ML AMP ONE (08:43)
[2020-03-12] MEDS ORDERED: FUROSEMIDE 40 MG/4 ML INJ (LASIX) ONE (08:43)
[2020-03-12] MEDS ORDERED: LACTATED RINGERS 1,000 ML IV PRN (08:47)
--- NOTE | 2020-03-12 08:47 | Progress Note-Pre Operative ---
Pre-Operative Progress Note H&P Reviewed The H&P was reviewed, patient examined and no changes noted. Date Seen by Provider: Mar 12, 2020 Time Seen by Provider: 08:45 Date H&P Reviewed: Mar 12, 2020 Time H&P Reviewed: 08:45 Pre-Operative Diagnosis: LT PROXIMAL URETERAL STONE ODETTE HEDRICK MD Mar 12, 2020 08:47
--- NOTE | 2020-03-12 08:48 | Progress Note-Post Operative ---
Post-Operative Progess Note Surgeon (s)/Tool And Cutter Grinder (s) Surgeon ODETTE HEDRICK MD Tool And Cutter Grinder: NONE Pre-Operative Diagnosis LT PROXIMAL URETERAL STONE Post-Operative Diagnosis SAME Procedure & Operative Findings Date of Procedure 03/12/20 Procedure Performed/Findings CYSTOSCOPY WITH LT URETERAL STONE MANIPULATION AND LT ESWL Anesthesia Type GENERAL Estimated Blood Loss Estimated blood loss (mL): NONE Specimens/Packing Specimens Removed NONE Packing: NONE ODETTE HEDRICK MD Mar 12, 2020 08:47
--- NOTE | 2020-03-12 08:50 | Discharge Inst-Urology ---
Discharge Inst-Urology Reconcile Patient Problems Problems Reviewed?: Yes Final Diagnosis LT URETERAL STONE Patient Instructions/Follow Up Plan/Assessment/Instructions Please make appointment to been seen in office Sunday 03/25, KUB prior to it KUB on way home Post ESWL instructions Increase oral fluids for 48 hours and then as needed. Diet and Activity as tolerated. If questions or concerns contact your physician Or seek help at emergency department. ODETTE HEDRICK MD Mar 12, 2020 08:49
[2020-03-12] MEDS ORDERED: ROCURONIUM 10 MG/ML 5 ML SYRINGE IV ONE (09:18)
--- NOTE | 2020-03-12 09:20 | Diagnostic Imaging Report ---
Clinical indication: Pre-ESWL. Left ureteral stone. Exam: KUB x-ray. Comparison: X-ray of the abdomen dated 03/11/2020. Findings: Stable roughly 8 mm calcification overlying the left abdominal region seen to the left of the L2-L3 intervertebral region. This is concerning for stone in the left ureter. Again seen phleboliths in the pelvis. There is a nonobstructed bowel gas pattern. There is no evidence of abdominal free air. Again seen hypertrophic spurs throughout the lumbar spine. Partially visualized left curvature of the thoracolumbar spine. Impression: 1: There is stable 8 mm calcification overlying left abdominal region seen to the left of the L2-L3 intervertebral region. This is concerning for stone in the left ureter. CT scan would better evaluate if necessary. Dictated by: Dictated on workstation # [id number]
[2020-03-12] MEDS ORDERED: TRAM50TA3 PO ×2 (11:51)
[2020-03-12] MEDS ORDERED: SULF1TAB35 PO ×2 (11:51)
[2020-03-12] MEDS ORDERED: TMSL.4C PO ×2 (11:51)
[2020-03-12] MEDS ORDERED: PHEN-640 PO ×2 (11:51)
--- NOTE | 2020-03-12 13:03 | Diagnostic Imaging Report ---
INDICATION: Post left-sided lithotripsy COMPARISON: Imaging from same date TECHNIQUE: Single radiograph of the abdomen dated 03/12/2020 at 11:55 AM FINDINGS: Previously noted calcification overlying the left renal pelvis is not as well seen. Currently, multiple small calcifications are now overlying the central aspect of the left kidney. Mild persisting hyperdensities seen overlying the left L2 transverse process which would be near the expected location of the left renal pelvis. This measures up to 7 mm Multiple phleboliths are present within the pelvis bilaterally. No suspicious calcifications overlying the right renal shadow. No evidence of bowel obstruction or free air. Mild apex left curvature of the spine with scattered osseous degenerative changes without acute osseous abnormality. IMPRESSION: Fragmentation of previously noted stone overlying the left renal pelvis with fragments now noted overlying the central left kidney with additional fragment likely remaining within the left renal pelvis. This does include a possible 7 mm stone fragment overlying the expected location of the left renal pelvis. Interval fragmentation is felt to relate to interval lithotripsy. Dictated by: Dictated on workstation # [id number]
--- NOTE | 2020-03-12 13:48 | OPERATIVE REPORT ---
DATE OF SERVICE: 03/12/2020 PREOPERATIVE DIAGNOSIS: Left proximal ureteral stone. POSTOPERATIVE DIAGNOSIS: Left proximal ureteral stone. OPERATION PERFORMED: Cystoscopy with left ureteral stone manipulation and left ESWL. SURGEON: Radu Hedrick MD ANESTHESIA: General. COMPLICATIONS: None. DESCRIPTION OF PROCEDURE: Under satisfactory general anesthesia, the patient in lithotomy position on the ESWL table, genitalia were prepped and draped in the usual sterile fashion. Cystoscope was introduced under vision. The anterior urethra was normal. The prostate revealed mild enlargement with mild bladder neck obstruction. Bladder was entered, revealed mild trabeculations. Ureteric orifices normal, but a sluggish efflux on the left side. Using the foroblique lens, I passed a 6-Qatari ureteral catheter and under fluoroscopy, I was able to push the stone back into the kidney, removed the ureteral catheter, emptied the bladder, removed the cystoscope. The patient was put supine. The left renal stone was localized, and shocks were delivered at kV of 6, a total of 3000 shocks completely fragmented the stone that was hardly visualized. The patient received 30 mg of Toradol and 40 mg of Lasix IV at the end of the procedure. He tolerated the procedure and anesthesia well and was sent to recovery room in stable condition. Job ID: [id number] DocumentID: [id number] Dictated Date: 03/12/2020 10:21:08 Heliarc Welder Date: 03/12/2020 13:48:07 Dictated By: RADU HEDRICK MD
--- NOTE | 2020-03-12 14:35 | Anesthesia-General Post-Op ---
General Patient Condition Mental Status/LOC: Same as Preop Cardiovascular: Satisfactory Nausea/Vomiting: Absent Respiratory: Satisfactory Pain: Controlled Complications: Absent Post Op Complications Complications None Follow Up Care/Instructions Patient Instructions None needed. Anesthesia/Patient Condition Patient Condition Patient is doing well, no complaints, stable vital signs, no apparent adverse anesthesia problems. No complications reported per nursing. MERCEDES RODRIGUEZ CRNA Mar 12, 2020 14:35
== END 2020-03-12 12:30 | disposition home or self-care (01) ==
LOC: SDC 08:21
PROVIDERS: ATTEND Urology
DX: N20.1 Calculus of ureter (principal); N40.1 Benign prostatic hyperplasia with lower urinary tract symptoms; N13.8 Other obstructive and reflux uropathy; N52.9 Male erectile dysfunction, unspecified; Z87.891 Personal history of nicotine dependence; Z85.820 Personal history of malignant melanoma of skin; Z79.890 Hormone replacement therapy; Z79.899 Other long term (current) drug therapy; Z11.2 Encounter for screening for other bacterial diseases
CPT/HCPCS: 74018; 87081

== ENCOUNTER → 2020-03-25 | Outpatient (CLI) | payer MEDICARE, OTHER ==
[~2020-03-25] MED LIST changes: +PHEN-640 PO; +TRAM50TA3 PO
--- NOTE | 2020-03-25 13:56 | Diagnostic Imaging Report ---
INDICATION: Nephrolithiasis. FINDINGS: The bowel gas pattern is nonspecific. There are no abnormal calcifications projected over either kidney. The osseous structures are unremarkable. There are some calcified phleboliths in the pelvis. IMPRESSION: No residual abnormal calcifications projected over either kidney. Dictated by: Dictated on workstation # [id number]
== END ==
LOC: RAD 13:33
PROVIDERS: ATTEND Urology
DX: N20.2 Calculus of kidney with calculus of ureter (principal); Z20.828 Contact with and (suspected) exposure to other viral communicable diseases
CPT/HCPCS: 74018

== ENCOUNTER 2020-04-08 13:02 | Emergency (ER) | payer MEDICARE, OTHER ==
[~2020-04-08] VITALS: Ht 182 cm; Wt 111.0 kg
--- NOTE | 2020-04-08 13:58 | ED Upper Extremity ---
General Chief Complaint: Upper Extremity Stated Complaint: L SHOULDER PAIN Nursing Triage Note: PT STATES FELL THIS AM SLIPPED OFF SKID STEER LANDING ON L ELBOW AND SHOULDER Nursing Sepsis Screen: No Definite Risk Source: patient Exam Limitations: no limitations History of Present Illness Date Seen by Provider: Apr 08, 2020 Time Seen by Provider: 13:53 Initial Comments To ER with c/o left shoulder pain after fall off of skid steer landing on left side. Onset: just prior to arrival Severity: moderate Method of Injury: fell Modifying Factors: Worse With Movement Allergies and Home Medications Allergies Coded Allergies: No Known Drug Allergies (Verified , 03/12/20) Home Medications Levothyroxine Sodium 25 Mcg Tablet, 25 MCG PO DAILY, (Reported) Phenazopyridine HCl 200 Mg Tablet, 1 TAB PO TID Prescribed by: IDALIA PARIS on 03/12/20 115 Sulfamethoxazole/Trimethoprim 1 Each Tablet, 1 EACH PO BID WITH MEALS Prescribed by: IDALIA PARIS on 03/12/20 115 Tamsulosin HCl 0.4 Mg Cap, 0.4 MG PO DAILY Prescribed by: IDALIA PARIS on 03/12/20 1151 Tramadol HCl 50 Mg Tablet, 50-100 MG PO Q4H Prescribed by: IDALIA PARIS on 03/12/20 1151 Patient Home Medication List Home Medication List Reviewed: Yes Review of Systems Constitutional: see HPI EENTM: see HPI Respiratory: no symptoms reported Cardiovascular: no symptoms reported Genitourinary: no symptoms reported Musculoskeletal: see HPI Skin: no symptoms reported Psychiatric/Neurological: No Symptoms Reported Past Hpfarkg-Kaydde-Dkifrd Hx Patient Social History Alcohol Use: Occasionally Uses Number of Drinks Today: AA Alcohol Beverage of Choice: Beer Recreational Drug Use: No Smoking Status: Never a Smoker Type Used: Cigarettes, Smokeless Tobacco Former Smoker, Quit: Jun 21, 2005 2nd Hand Smoke Exposure: No Recent Foreign Travel: No Contact w/Someone Who Travel: No Recent Infectious Disease Expo: No Recent Hopitalizations: No Physical Abuse: No Sexual Abuse: No Immunizations Up To Date Tetanus Booster (TDap): Unknown PED Vaccines UTD: No Date of Influenza Vaccine: Feb 27, 2015 Seasonal Allergies Seasonal Allergies: Yes (mild) Past Medical History Surgeries: Yes (SEVERAL ON LEG FOR BROKEN BONE CHILD, MELANOMA REMOVAL, HERNIA-UMBILICAL) Abdominal, Gallbladder, Orthopedic, Thyroidectomy Respiratory: Yes Sleep Apnea Currently Using CPAP: No Currently Using BIPAP: No Cardiac: Yes Coronary Artery Disease Neurological: No Reproductive Disorders: No Sexually Transmitted Disease: No HIV/AIDS: No Genitourinary: Yes Kidney Stones Gastrointestinal: Yes (UMBILICAL HERNIA REPAIR) Abdominal Hernia, Diverticulosis, Polyps Musculoskeletal: Yes Arthritis, Fractures Endocrine: Yes (partial thyroidectomy) Hypothyroidsim HEENT: Yes (GLASSES) Loss of Vision: Denies Hearing Impairment: Denies Cancer: Yes Skin, Melanoma What Type of Treatment Did You: Surgical Intervention Psychosocial: No Integumentary: No Blood Disorders: No Adverse Reaction/Blood Tranf: No (N/A) Family Medical History PSH: -COLONOSCOPIES--POLYPECTOMIES Physical Exam Vital Signs Vital Signs - First Documented 04/08/20 13:05 Temp 36.1 Pulse 101 Resp 18 B/P (MAP) 112/64 (80) Pulse Ox 98 Capillary Refill : Less Than 3 Seconds Height, Weight, BMI Height: 6'1.00" Weight: 237lbs. 5.0oz. [id number]; 33.00 BMI Method:Stated General Appearance: WD/WN, no apparent distress Respiratory: no respiratory distress, no accessory muscle use Shoulder: normal ROM, swelling Elbow/Forearm: normal inspection, non-tender Hand: normal inspection, non-tender Neurologic/Psychiatric: alert, normal mood/affect Skin: normal color, warm/dry Progress/Results/Core Measures Results/Orders My Orders Orders - KAYA LY APRN Shoulder, Left, 3 Views (04/08/20 13:28) Vital Signs/I&O 04/08/20 13:05 Temp 36.1 Pulse 101 Resp 18 B/P (MAP) 112/64 (80) Pulse Ox 98 Blood Pressure Mean: 80 Departure Communication (Admissions) Strong radial pulse no obvious deformity. Normal movement of the wrist and elbow. 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 He has full range of motion of the shoulder though it does cause him some pain. He can fully abduct the arm flex and extend. Impression Primary Impression: Shoulder contusion Qualified Codes: S40.012A - Contusion of left shoulder, initial encounter Disposition: 01 HOME, SELF-CARE Condition: Stable Departure-Patient Inst. Decision time for Depature: 13:58 Referrals: IGOR SOLIZ DO (PCP/Family) Primary Care Physician Patient Instructions: Contusion (DC) Add. Discharge Instructions: All discharge instructions reviewed with patient and/or family. Voiced understanding. KAYA LY TALENT DEVELOPMENT COORDINATOR Apr 08, 2020 13:58
--- NOTE | 2020-04-08 14:27 | Diagnostic Imaging Report ---
INDICATION: Fall. FINDINGS: Three views of the left shoulder demonstrate no fracture, dislocation, or acute articular incongruity. IMPRESSION: No acute appearing abnormality. Dictated by: Dictated on workstation # [id number]
[2020-04-08 14:35] VITALS: BP 112/64
== END 2020-04-08 14:35 | disposition home or self-care (01) ==
LOC: EDUNIT# 13:02 → ER 13:04
DX: S40.012A Contusion of left shoulder, initial encounter (principal); E03.9 Hypothyroidism, unspecified; Z87.891 Personal history of nicotine dependence; Z79.890 Hormone replacement therapy; Z85.820 Personal history of malignant melanoma of skin; Z20.828 Contact with and (suspected) exposure to other viral communicable diseases; W17.89XA Other fall from one level to another, initial encounter
CPT/HCPCS: 73030; 99282; A4565

== ENCOUNTER → 2020-08-12 | Outpatient (CLI) | payer MEDICARE, OTHER ==
--- NOTE | 2020-08-12 15:23 | Diagnostic Imaging Report ---
PROCEDURE: US Thyroid. TECHNIQUE: Multiple real-time grayscale images were obtained of the thyroid in various projections. INDICATION: Thyroid nodule. The right lobe of the thyroid is surgically absent. The left lobe measures 4.9 x 2.0 x 1.7 cm. There are 2 cystic appearing subcentimeter nodules left lobe, both approximately 6 mm by 3 to 4 mm in size. No dominant thyroid mass is detected. IMPRESSION: 1. Surgically absent right thyroid lobe. 2. Probable subcentimeter colloid cysts left lobe. No dominant thyroid mass is detected. Dictated by: Dictated on workstation # [id number]
== END ==
LOC: RAD 13:54
PROVIDERS: ATTEND Internal Medicine
DX: E04.1 Nontoxic single thyroid nodule (principal); Z90.89 Acquired absence of other organs
CPT/HCPCS: 76536

== ENCOUNTER 2022-06-29 09:52 | Emergency (ER) | payer MEDICARE, OTHER ==
[~2022-06-29] VITALS: Ht 185.5 cm; Wt 113.4 kg
[~2022-06-29 09:52] MED LIST changes: +CYCL10TA25 PO; -CYCL10TA9 PO; -SULF1TAB35 PO; +SULF1TAB38 PO
--- NOTE | 2022-06-29 10:30 | Diagnostic Imaging Report ---
Indication: Hemoptysis, cough, began one week ago, production of blood one day ago. Comparison: 10/20/2017 Findings: Frontal chest x-ray is stable and normal aside from some mild flattening of the diaphragms and likely chronic air trapping versus aggressive inspiration. Hilar and mediastinal contours were normal. There is no failure, effusion or pneumothorax. No findings of edema or pneumonia. Impression: No acute-appearing abnormality or apparent change. Dictated by: Dictated on workstation # [id number]
[2022-06-29 10:47] LABS: BASOPHILS % (AUTO) 1 % (0-10); EOSINOPHILS # (AUTO) 0.2 10^3/uL (0.0-0.3); EOSINOPHILS % (AUTO) 3 % (0-10); HEMATOCRIT 47 % (40-54); HEMOGLOBIN 15.7 g/dL (13.3-17.7); LYMPHOCYTES # (AUTO) 1.7 10^3/uL (1.0-4.0); LYMPHOCYTES % (AUTO) 27 % (12-44); MEAN CORPUSCULAR HEMOGLOBIN 31 pg (25-34); MEAN CORPUSCULAR HGB CONC 34 g/dL (32-36); MEAN CORPUSCULAR VOLUME 91 fL (80-99); MEAN PLATELET VOLUME 10.4 fL (9.0-12.2); MONOCYTES # (AUTO) 0.6 10^3/uL (0.0-1.0); MONOCYTES % (AUTO) 10 % (0-12); NEUTROPHILS # (AUTO) 3.9 10^3/uL (1.8-7.8); NEUTROPHILS % (AUTO) 60 % (42-75); PLATELET COUNT 275 10^3/uL (130-400); WHITE BLOOD COUNT 6.5 10^3/uL (4.3-11.0)
--- NOTE | 2022-06-29 10:50 | ED Cough/URI ---
General Chief Complaint: Cough/Cold/Flu Symptoms Stated Complaint: COUGH | COUGHING UP BLOOD Nursing Triage Note: Pt ambulates to room 10 with c/o of coughing and coughing up blood. Pt states coughing started 1 week ago and coughing up blood started yesterday. Source: patient History of Present Illness Date Seen by Provider: Jun 29, 2022 Time Seen by Provider: 10:08 Initial Comments PT ARRIVES VIA POV FROM HOME WITH PT HAS BEEN SICK X 1 WEEK, HAS ALSO BEEN SICK SINCE LAST WEEK, BUT SHE IS GETTING BETTER PT HAS HAD: -COUGH -CONGESTION -FEVER UP TO 103 -BODY ACHES -SLIGHT NAUSEA, NO VOMITING -SLIGHT SHORTNESS OF BREATH HAD ONE EPISODE OF HEMOPTYSIS YESTERDAY, NONE SINCE HAS NOT TAKEN ANYTHING AT ANY TIME FOR SYMPTOMS HAS NOT SOUGHT CARE UNTIL TODAY HAS NOT HAD COVID OR FLU VACCINES STATES HIS ONLY MEDICAL PROBLEM IS HTN. NO HISTORY OF RESPIRATORY PROBLEMS AND DENIES SMOKING USES ALCOHOL ONCE IN AWHILE, NONE FOR A WEEK PCP: DR. SOLIZ Allergies and Home Medications Allergies Coded Allergies: No Known Drug Allergies (Verified , 03/12/20) Patient Home Medication List Home Medication List Reviewed: Yes Levothyroxine Sodium (Levothyroxine Sodium) 25 Mcg Tablet, 25 MCG PO DAILY, (Reported) Entered as Reported by: LEXIE WELCH on 10/27/19 1026 Phenazopyridine HCl (Pyridium) 200 Mg Tablet, 1 TAB PO TID Prescribed by: IDALIA PARIS on 03/12/20 1151 Sulfamethoxazole/Trimethoprim (Bactrim Ds Tablet) 1 Each Tablet, 1 EACH PO BID WITH MEALS Prescribed by: IDALIA PARIS on 03/12/20 1151 Tamsulosin HCl (Flomax) 0.4 Mg Cap, 0.4 MG PO DAILY Prescribed by: IDALIA PARIS on 03/12/20 1151 Tramadol HCl (Tramadol HCl) 50 Mg Tablet, 50-100 MG PO Q4H Prescribed by: IDALIA PARIS on 03/12/20 1151 Review of Systems Review of Systems Constitutional: see HPI, fever, malaise EENTM: see HPI, nose congestion Respiratory: see HPI, cough, hemoptysis, short of breath Cardiovascular: no symptoms reported Gastrointestinal: no symptoms reported Genitourinary: no symptoms reported Musculoskeletal: see HPI (BODY ACHES) Skin: no symptoms reported Psychiatric/Neurological: No Symptoms Reported Hematologic/Lymphatic: No Symptoms Reported Immunological/Allergic: no symptoms reported Past Vsphglk-Oszkpq-Ydexci Hx Patient Social History Tobacco Use?: No Substance use?: No Alcohol Use?: Yes Alcohol Frequency: Once in a while Immunizations Up To Date Tetanus Booster (TDap): Unknown PED Vaccines UTD: No Influenza Vaccine Up-to-Date: No; Not Current Seasonal Allergies Seasonal Allergies: Yes (mild) Past Medical History Surgeries: Yes (SEVERAL ON LEG FOR BROKEN BONE CHILD, MELANOMA REMOVAL, HERNIA-UMBILICAL) Abdominal, Gallbladder, Orthopedic, Thyroidectomy Respiratory: Yes Sleep Apnea Currently Using CPAP: No Currently Using BIPAP: No Cardiac: Yes Coronary Artery Disease, Hypertension Neurological: No Reproductive Disorders: No Sexually Transmitted Disease: No HIV/AIDS: No Genitourinary: Yes Kidney Stones Gastrointestinal: Yes (UMBILICAL HERNIA REPAIR) Abdominal Hernia, Diverticulosis, Polyps Musculoskeletal: Yes Arthritis, Fractures Endocrine: Yes (partial thyroidectomy; OBESE) Hypothyroidsim HEENT: Yes (GLASSES) Loss of Vision: Denies Hearing Impairment: Denies Cancer: Yes Skin, Melanoma Did You Recieve Any Treatments: Yes What Type of Treatment Did You: Surgical Intervention Psychosocial: No Integumentary: No Blood Disorders: No Adverse Reaction/Blood Tranf: No (N/A) Family Medical History PSH: -COLONOSCOPIES--POLYPECTOMIES Physical Exam Vital Signs - First Documented 06/29/22 10:17 Temp 35.9 Pulse 62 Resp 16 B/P (MAP) 112/72 (85) Pulse Ox 96 Capillary Refill : Height: 6'1.00" Weight: 237lbs. 5.0oz. 107.916359xu; 32.00 BMI Method:Stated General Appearance: WD/WN, no apparent distress HEENT: PERRL/EOMI, normal ENT inspection, TMs normal Neck: normal inspection Respiratory: normal breath sounds, no respiratory distress, no accessory muscle use Cardiovascular: regular rate, rhythm, no edema, no JVD, no murmur Gastrointestinal: non tender, soft Extremities: normal inspection, normal capillary refill Neurologic/Psychiatric: concessions manager II-XII nml as tested, no motor/sensory deficits, alert, normal mood/affect, oriented x 3 Skin: normal color, warm/dry Progress/Results/Core Measures Suspected Sepsis SIRS Temperature: Pulse: 62 Respiratory Rate: 16 Laboratory Tests 06/29/22 10:44: White Blood Count 6.5 Blood Pressure 112 /72 Mean: 85 Laboratory Tests 06/29/22 10:44: Creatinine 0.81, INR Comment 1.0, Platelet Count 275, Total Bilirubin 0.7 Results/Orders Lab Results Laboratory Tests Test 06/29/22 10:19 06/29/22 10:44 Range/Units Influenza Type A (RT-PCR) Detected H Not Detecte Influenza Type B (RT-PCR) Not Detected Not Detecte SARS-CoV-2 RNA (RT-PCR) Not Detected Not Detecte White Blood Count 6.5 4.3-11.0 10^3/uL Red Blood Count 5.12 4.30-5.52 10^6/uL Hemoglobin 15.7 13.3-17.7 g/dL Hematocrit 47 40-54 % Mean Corpuscular Volume 91 80-99 fL Mean Corpuscular Hemoglobin 31 25-34 pg Mean Corpuscular Hemoglobin Concent 34 32-36 g/dL Red Cell Distribution Width 11.7 10.0-14.5 % Platelet Count 275 130-400 10^3/uL Mean Platelet Volume 10.4 9.0-12.2 fL Immature Granulocyte % (Auto) 0 % Neutrophils (%) (Auto) 60 42-75 % Lymphocytes (%) (Auto) 27 12-44 % Monocytes (%) (Auto) 10 0-12 % Eosinophils (%) (Auto) 3 0-10 % Basophils (%) (Auto) 1 0-10 % Neutrophils # (Auto) 3.9 1.8-7.8 10^3/uL Lymphocytes # (Auto) 1.7 1.0-4.0 10^3/uL Monocytes # (Auto) 0.6 0.0-1.0 10^3/uL Eosinophils # (Auto) 0.2 0.0-0.3 10^3/uL Basophils # (Auto) 0.0 0.0-0.1 10^3/uL Immature Granulocyte # (Auto) 0.0 0.0-0.1 10^3/uL Erythrocyte Sedimentation Rate 3 0-30 MM/HR Prothrombin Time 13.3 12.2-14.7 SEC INR Comment 1.0 0.8-1.4 Activated Partial Thromboplast Time 28 24-35 SEC Sodium Level 137 135-145 MMOL/L Potassium Level 4.3 3.6-5.0 MMOL/L Chloride Level 105 98-107 MMOL/L Carbon Dioxide Level 27 21-32 MMOL/L Anion Gap 5 5-14 MMOL/L Blood Urea Nitrogen 13 7-18 MG/DL Creatinine 0.81 0.60-1.30 MG/DL Estimat Glomerular Filtration Rate 95 BUN/Creatinine Ratio 16 Glucose Level 104 70-105 MG/DL Calcium Level 9.1 8.5-10.1 MG/DL Corrected Calcium 9.0 8.5-10.1 MG/DL Magnesium Level 1.9 1.6-2.4 MG/DL Total Bilirubin 0.7 0.1-1.0 MG/DL Aspartate Amino Transf (AST/SGOT) 28 5-34 U/L Alanine Aminotransferase (ALT/SGPT) 70 H 0-55 U/L Alkaline Phosphatase 78 40-136 U/L C-Reactive Protein High Sensitivity 0.16 0.00-0.50 MG/DL B-Type Natriuretic Peptide 26.8 <100.0 PG/ML Total Protein 6.5 6.4-8.2 GM/DL Albumin 4.1 3.2-4.5 GM/DL My Orders Orders - STEFANY DENISE DO Ed Iv/Invasive Line Start (06/29/22 10:08) Monitor-Rhythm Ecg Trace Only (06/29/22 10:08) Bnp [place] (06/29/22 10:08) Cbc With Automated Diff (06/29/22 10:08) Comprehensive Metabolic Panel (06/29/22 10:08) Hs C Reactive Protein (06/29/22 10:08) Magnesium (06/29/22 10:08) Protime With Inr (06/29/22 10:08) Partial Thromboplastin Time (06/29/22 10:08) Erythrocyte Sedimentation Rate (06/29/22 10:08) Chest 1 View, Ap/Pa Only (06/29/22 10:08) Covid 19 Inhouse Test (06/29/22 10:08) Influenza A And B By Pcr (06/29/22 10:08) Isolation Central Supply Req (06/29/22 10:08) Ct Angio Chest W (R/O Pe) (06/29/22 11:16) Iohexol Injection (Omnipaque 350 Mg/Ml (06/29/22 11:30) Received Contrast (Hold Metformin- Contr (06/29/22 11:30) Ns (Ivpb) (Sodium Chloride 0.9% Ivpb Bag (06/29/22 11:30) Medications Given in ED Current Medications Medications Dose Ordered Sig/Parag Route Start Time Stop Time Status Last Admin Dose Admin Iohexol 100 ml ONCE ONCE IV 06/29/22 11:30 06/29/22 11:31 DC 06/29/22 11:39 84 ML Sodium Chloride 100 ml ONCE ONCE IV 06/29/22 11:30 06/29/22 11:31 DC 06/29/22 11:39 70 ML Vital Signs/I&O 06/29/22 10:17 Temp 35.9 Pulse 62 Resp 16 B/P (MAP) 112/72 (85) Pulse Ox 96 Capillary Refill : Blood Pressure Mean: 85 Progress Note : Progress Note PLACED IN ISOLATION ROOM PPE WORN COVID AND FLU TESTING DONE--PT IS POSITIVE FOR INFLUENZA A PT IS OUTSIDE TREATMENT WINDOW FOR ANTIVIRAL THERAPY FOR FLU, HIS SYMPTOMS HAVE BEEN GOING ON FOR A WEEK CXR IS ESSENTIALLY NORMAL CT CHEST ORDERED DUE TO REPORTED HEMOPTYSIS TO RULE OUT ANY OTHER PATHOLOGY UNEVENTFUL ER STAY NO COUGH OR HEMOPTYSIS NO DYSPNEA NO HYPOXIA NO FEVER NO ABNORMAL VITALS REVIEWED ALL TEST RESULTS, ANTICIPATED COURSE, SYMPTOMATIC TREATMENT, NEED FOR FOLLOW UP AND RETURN PRECAUTIONS, WITH PT AND Diagnostic Imaging Comments CXR--PER RADIOLOGIST REPORT AT 1049 Findings: Frontal chest x-ray is stable and normal aside from some mild flattening of the diaphragms and likely chronic air trapping versus aggressive inspiration. Hilar and mediastinal contours were normal. There is no failure, effusion or pneumothorax. No findings of edema or pneumonia. Impression: No acute-appearing abnormality or apparent change. CT CHEST ANGIOGRAM--PER RADIOLOGIST REPORT AT 1207 FINDINGS: There is good opacification of the pulmonary arteries without intraluminal filling defect identified. Thoracic aorta is of normal caliber. Subcentimeter nodules are again seen within the upper lobe of the right lung and within the subpleural aspect of the left lower lobe. There is mild left basilar atelectasis and/or scarring. No consolidation is seen. There is no significant pleural or pericardial fluid. Prominent mediastinal lymph nodes are stable without new pathologic adenopathy identified. IMPRESSION: There is no evidence of pulmonary embolism. Subcentimeter nodules in both lungs are likely on the basis of previous granulomatous exposure and residual scar. No new abnormality is seen. Reviewed: Reviewed by Me Departure Impression Primary Impression: Influenza A Additional Impression: EPISODE OF HEMOPTYSIS Disposition: HOME, SELF-CARE Condition: Stable Departure-Patient Inst. Decision time for Depature: 12:08 Referrals: IGOR SOLIZ DO (PCP/Family) Primary Care Physician Patient Instructions: Coughing up Blood, Flu, Adult (DC) Add. Discharge Instructions: HOME, REST LOTS OF CLEAR LIQUIDS TYLENOL AND MOTRIN NEEDED FOR PAIN OR FEVER OVER THE COUNTER MUCINEX DM FOR COUGH FOLLOW UP WITH DR. SOLIZ IF YOUR SYMPTOMS PERSIST, RETURN TO ER IF YOUR SYMPTOMS WORSEN. All discharge instructions reviewed with patient and/or family. Voiced un derstanding. STEFANY DENISE DO Jun 29, 2022 10:50
[2022-06-29 11:02] LABS: PROTHROMBIN TIME PATIENT 13.3 SEC (12.2-14.7)
[2022-06-29 11:07] LABS: ALBUMIN 4.1 GM/DL (3.2-4.5); BILIRUBIN,TOTAL 0.7 MG/DL (0.1-1.0); CALCIUM 9.1 MG/DL (8.5-10.1); CREATININE SERUM 0.81 MG/DL (0.60-1.30); MAGNESIUM 1.9 MG/DL (1.6-2.4); POTASSIUM 4.3 MMOL/L (3.6-5.0); TOTAL PROTEIN 6.5 GM/DL (6.4-8.2)
[2022-06-29 11:11] LABS: ERYTHROCYTE SEDIMENTATION RATE 3 MM/HR (0-30)
[2022-06-29] MEDS ORDERED: NS 100 ML (IVPB) BAG IV ONE (11:30)
[2022-06-29] MEDS ORDERED: IOHEXOL 350 MG/ML 100 ML (OMNIPAQUE 350) VIAL IV ONE (11:30)
[2022-06-29] MEDS ORDERED: HOLD METFORMIN - RECEIVED CONTRAST 20 ML VIAL IV SCH (11:30)
--- NOTE | 2022-06-29 12:04 | Diagnostic Imaging Report ---
INDICATION: Hemoptysis. TECHNIQUE: CTA of the thorax is performed after bolus intravenous administration of iodinated contrast. 3D reformatted images are produced. All CT scans use one or more of the following dose optimizing techniques: automated exposure control, MA and/or KvP adjustment based on a patient size and exam type, or iterative reconstruction. FINDINGS: There is good opacification of the pulmonary arteries without intraluminal filling defect identified. Thoracic aorta is of normal caliber. Subcentimeter nodules are again seen within the upper lobe of the right lung and within the subpleural aspect of the left lower lobe. There is mild left basilar atelectasis and/or scarring. No consolidation is seen. There is no significant pleural or pericardial fluid. Prominent mediastinal lymph nodes are stable without new pathologic adenopathy identified. IMPRESSION: There is no evidence of pulmonary embolism. Subcentimeter nodules in both lungs are likely on the basis of previous granulomatous exposure and residual scar. No new abnormality is seen. Dictated by: Dictated on workstation # [id number]
[2022-06-29 12:19] VITALS: BP 120/83
== END 2022-06-29 13:03 | disposition home or self-care (01) ==
LOC: EDUNIT# 09:52 → ER 09:55
DX: J10.1 Influenza due to other identified influenza virus with other respiratory manifestations (principal); R04.2 Hemoptysis; E66.9 Obesity, unspecified; Z68.32 Body mass index [BMI] 32.0-32.9, adult; Z20.822 Contact with and (suspected) exposure to COVID-19; Z28.310 Unvaccinated for COVID-19
CPT/HCPCS: 36415; 71045; 71275; 80053; 83735; 83880; 85025; 85610; 85652; 85730; 86141; 87636; 93041